=== PATIENT | male | born 1945 | race Caucasian/White ===

== ENCOUNTER 2025-01-07 10:30 | Outpatient (AMB) | payer OTHER, SELFPAY ==
--- NOTE | 2025-01-07 10:32 | MHC.OFFVIS ---
Vital Signs 01/07/25 10:34 Height 5 ft 7 in Weight 181 lb BMI 28.3 BP 126/70 Blood Pressure Location Rt brachial Position Sitting Pulse 71 Pulse Source Pulse Oximeter Pulse Oximetry (%) 97 Oxygen Delivery Method Room Air Intake Visit Reasons: ENP:Parkinson Disease Intake Note: [facility] Allergies No Known Allergies Allergy (Verified 01/07/25 10:35) Medication List - Last Reconciled 01/07/25 by Laurie Spivey MD aspirin 81 mg PO DAILY atorvastatin 80 mg PO DAILY carbidopa-levodopa 25-100 mg 2 tabs PO QID carvedilol 6.25 mg PO BID cholecalciferol (vitamin D3) 50 mcg PO DAILY lisinopril 40 mg PO DAILY primidone 25 mg (1/2 x 50 mg) PO BID HPI Comments Details: 79y/o Right handed male comes for further management of possible parkinsons and tremors. He was on [place] 1966 and exposed to Agent [place].He started noticing tremors in paul UE R>L- not sure if he was diagnosed with Parkinsons. The tremors are worse with action, he has difficulty writing , holding a cup of water is difficult. He has mild hypophonia. No drooling. He has trouble writing, trouble using utensils. He can dress and shower with no issues. 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 No falls recently. No hallucinations. He has some vivid dreams . No screaming yelling in sleep. He lives alone and is independent in all his ADLs. 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) History of total left knee replacement (TKR) H/O angioplasty Social History Alcohol intake: current Patient Tobacco Use Status: Former Tobacco user Years Smoked: quit 1966 Physical Exam Vital Signs: Last Vital Signs Pulse 71 01/07/25 10:34 BP 126/70 01/07/25 10:34 Pulse Ox 97 01/07/25 10:34 Oxygen Delivery Method Room Air 01/07/25 10:34 BMI result Body Mass Index 28.3 Const General: cooperative, healthy appearing and comfortable Nutritional Appearance: average body habitus Orientation/consciousness: patient oriented x3 Eyes Pupils: Equal, round and reactive pupils present Neuro Other: Head tremors Paul UE rest , postural and action tremors R>L Mild voice tremors, mild hypophonia Tone normal Mild decreased facial expression and blink FFM and Foot taps- decreased paul R>L Gait- stooped, slow General: patient oriented x3 Cranial nerves: Yes Equal, round and reactive pupils present, Yes Bilaterally intact EOM present, Yes Nystagmus not present, Yes Normal facial strength present, Yes Midline tongue present, Yes Symmetric palate elevation present, Yes Ability to bilaterally rotate head present and Yes Ability to bilaterally elevate shoulders present Cognition (Neuro): normal cognition Motor exam (neuro): 5/5 motor strength present throughout and Normal motor muscle tone present throughout Deep tendon reflexes (DTR's): Right triceps reflex intensity grade: 1+, Left triceps reflex intensity grade: 1+, Rt Biceps (C5, C6): 1+, Left biceps reflex intensity grade: 1+, Right brachioradialis reflex intensity grade: 1+, Left brachioradialis reflex intensity grade: 1+, Right patellar reflex intensity grade: 1+ and Left patellar reflex intensity grade: 1+ Coordination: [id number] test normal Assessment & Plan Assessment & Plan (1) Parkinson's disease without dyskinesia: Code(s): G20.A1 - Parkinson's disease without dyskinesia, without mention of fluctuations Category: Medical (2) Essential and other specified forms of tremor: Code(s): G25.0 - Essential tremor; G25.2 - Other specified forms of tremor Category: Medical Plan Continue sinemet 25/100 2 tabs qid I will trial him on primidone 50mg 1/2 tab bid for tremors. SIde effects discussed Medications: New primidone 25 mg (1/2 x 50 mg) PO BID 60 tabs 6RF Coding Level of Care Code New Pt Level 4 (13437) Complex EM visit Add On G2211 Diagnoses Parkinson's disease without dyskinesia G20.A1 Essential and other specified forms of tremor G25.0; G25.2
[2025-01-07 10:34] VITALS: BP 126/70; PULSE 71; O2SAT 97; BMI 28.3
--- OUTSIDE RECORDS SUMMARY | 2025-01-07 12:25 | XMS_ITS | Encounter Summary ---
Author Name [facility] [place] [facility] Address [address] [place] [id number] Care Team Providers Care Music Librarian Name Role Phone WISAM ALEXANDER Primary Care Provider Unavail able Insurance Providers: All historical and current Section Date Range: From patient's date of to the date document was created. This section includes the names of all active insurance providers for the patient. Insurance Provider Type of Coverage Plan Name Start of Policy Coverage End of Policy Coverage Group Number Member ID Insurance Provider's Telephone Number Policy Kelley's Name Patient's Relationship to Policy Kelley MEDICARE (WNR) MEDICARE (M) PART B Jul 22, 2012 PART B [id number] EDMUND AMARO PATIENT MEDICARE (WNR) MEDICARE (M) PART B Jul 22, 2012 PART B [id number] [phone] EDMUND AMARO PATIENT MEDICARE (WNR) MEDICARE (M) PART A Dec 21, 2011 PART A [id number] EDMUND AMARO PATIENT MEDICARE (WNR) MEDICARE (M) PART B Dec 21, 2011 PART B [id number] EDMUND AMARO PATIENT MEDICARE (WNR) MEDICARE (M) PART A Dec 21, 2011 PART A [id number] [phone] EDMUND AMARO PATIENT MEDICARE (WNR) MEDICARE (M) PART B Dec 21, 2011 PART B [id number] EDMUND AMARO PATIENT MEDICARE (WNR) MEDICARE (M) PART A Dec 21, 2011 PART A [id number] EDMUND AMARO PATIENT MEDICARE (WNR) MEDICARE (M) PART A Dec 21, 2011 PART A [id number] [phone] EDMUND AMAOR PATIENT Selected Encounter This section includes the information on record at [place] for the Encounter. Date/Time Encounter Type Encounter Description Reason Provider Source Apr 25, 2024 10:30 AM SELF CARE MNGMENT TRAINING PHYSICAL THERAPY ICD-10-CM M54.50 Low back pain, unspecified SEMAJ DANIELSON [facility] Encounter Template Text not used by [place] Assessments - Encounter Diagnoses This section includes the primary and secondary diagnoses documented for the Encounter. Date/Time Primary/Secondary Diagnosis Diagnosis Name Provider Source Apr 25, 2024 12:17 PM PRIMARY Low back pain, unspecified SEMAJ DANIELSON [facility] Plan of Treatment: Future Appointments (+ 6 months) and Future Tests (+/- 45 days) The Plan of Treatment section includes future care activities for the patient [facility] [place] [facility] This section includes future appointments and future orders which are active, pending or scheduled. Future Appointments This section includes appointments that were scheduled to occur 6 months from the date of the Encounter, up to a maximum of 20 appointments. The data comes from all [place] treatment facilities. Appointment Date/Time Appointment Type Appointme nt Facility Name May 05, 2024 09:30 [facility] Jun 02, 2024 11:30 AM [facility] Jun 18, 2024 11:00 AM AMBULATORY - MEDICINE [facility] Sep 24, 2024 10:00 AM [facility] Active, Pending, and Scheduled Orders This section includes a listing of several types of active, pending, and scheduled orders, including clinic medications orders, diagnostic test orders, procedure orders and consult orders; where the start date of the order is 45 days before the date of the Encounter or 45 days after the date of theEncounter. The data comes from all [place] treatment [facility]. Test Date/Time Test Type Test Details Facility Name Apr 22, 2024 11:06 AM Consult Order [facility]-NEUROLOGY Cons Pl Sql Developer[employer] Choice [facility] Social History: Smoking Status (Most current) and Tobacco Use (All prior to encounter date) This section includes the most current, and the historical, smoking and tobacco- related health factors from the [place] facility where the Encounter took place. Current Smoking Status This section includes the most current smoking, or tobacco-related health factor, from the [place] facility where the Encounter took place. Date/Time Current Smoking Status Comment Facil ity Aug 28, 2023 10:30 AM VA-TOBACCO FORMER USER [facility] Tobacco Use History This section includes a history of the smoking, or tobacco-related health factors, that were collected on or before the date of the Encounter. The data comes from the [place] facility where the Encounter took place. Date/Time Smoking Status/Tobacco Use Comment F acility Aug 28, 2023 10:30 AM VA-TOBACCO QUIT 15 YRS OR MORE [facility] Aug 10, 2022 10:00 AM VA-TOBACCO NEVER USED [facility] Mar 24, 2021 10:00 AM VA-TOBACCO FORMER USER [facility] Mar 24, 2021 10:00 AM VA-TOBACCO QUIT 15 YRS OR MORE [facility] Apr 28, 2019 01:25 PM VA-TOBACCO NEVER USED [facility] Feb 08, 2018 02:23 PM QUIT TOBACCO USE > 7 YEARS AGO [facility] February 19, 2017 10:09 AM QUIT TOBACCO USE > 7 YEARS AGO QUIT 40 YRS AGO [facility] March 16, 2016 09:54 AM QUIT TOBACCO USE > 7 YEARS AGO [facility] Sep 15, 2014 10:01 AM QUIT TOBACCO USE > 7 YEARS AGO [facility] Advance Directives: All historical and current Section Date Range: From patient's date of to the date document was created. This section includes ALL of a patient's completed or amended [place] Advance and Rescinded Directives. The entries below indicate that a directive exists for the patient, but an actual copy is not included with this document. The data comes from all [facility]. Date Advance Directives Provider Source Aug 10, 2022 ADVANCE DIRECTIVE ELVA JARAMILLO [facility] Encounter Notes: All associated encounter notes This section contains the clinical notes associated to the Encounter. Date/Time Encounter Note(s) Provider Source Apr 25, 2024 09:55 AM PHYSICAL THERAPY C ONSULT: LOCAL TITLE: PHYSICAL THERAPY CONSULT STANDARD TITLE: PHYSICAL THERAPY CONSULT DATE OF NOTE: APR 25, 2024@09:55 ENTRY DATE: APR 25, 2024@09:55:21 AUTHOR: SEMAJ DANIELSON EXP COSIGNER: URGENCY: STATUS: COMPLETED Initial Evaluation date: 04/25/24 Progress Note Date: 05/26/24 Treatment #: eval Treatment time: 45 Diagnosis: Low back pain, unspecified(ICD-10-CM M54.50) Provider: BRANDON YATES PT Treatment Precautions: Patient identified by full name and date of Vitals: HR:75 BP: 98/59 SUBJECTIVE: History of Current injury: Patient states they began to notice sciaica symptoms in the R hip about 1 month ago and notes the symptoms were mild to start, and then about 2 weeks ago the pain became severe. Notes they were having difficulty with prolonged standing, as well as completing computational chemist and yardwork. Notes the pain is primarily located on the R glute and will occasionally shoot all the way down the RLE into the calf. Has also noted some sporadic symptoms behind the L thigh as well. Patient notes the pain is worst on the morning noting difficulty standing up straight initially due to pain and then noting they are able to straigthen up more as the day goes on. Patient states alleviating factors include lidocaine patches and prolonged walking tend to alleviate their symptoms. Patient denies any major trauma or past surgical procedures the lower back or hips. Notes hx of bilateral knee replacements. Patient also notes a hx of a heart valve replacement TAVR- December 2023. Patient denies saddle paresthesia, denies recent unxplained changes to bowel/bladder function. scheduled to go on a cruise in 3 weeks Pain Current: 4/10 Pain Best: 0/10 Pain Worst: 10/10 Current exercise routine: gardening and yard work Work: retired Patient Goal: get back to 100% Number of days per week with pain: 04/27 SANE report Please rate your ability to use your injured area on a 0% to 100% scale, with 0% being unable to use the injured area and 100% being normal use of injured area in your daily activity: 25% OBJECTIVE: Red flags: Recent Trauma- Age (50+)+ Hx of Cancer+ Fever/chills/night sweats- Unexplained weight loss- Recent infection- Immunosuppression- Night pain- Saddle anesthesia- Bowel/bladder dysfunction- LE neurological deficit- Psychosocial flags: mental health dx- entrenched/unhelpful beliefs about pain- clinically relevant catastrophization- signs of kinesiophobia- Neuro: patellar and achilles relfexes normal 2+ - clonus ROM: Lumbar Flexion 50% limitation Lumbar Extension 75% limitation* Lumbar Left side bend 50% limitation* Lumbar Right side bend 50% limitation* Lumbar Left rotation 75% limitation* Lumbar Right rotation 75% limitation* Hip ROM: Hip flexion(120): L:110 R:110 Hip Abduction(40): L: R: Hip Internal rotation(30): L:25 R: 25 Hip external rotation(30): L:30 R:30 Hip Extension(20): L: R: Lumbar/Hip Special Tests: SLR- Sign of the Buttock- BING- Scour- FADDIR- ALESSANDRO RICARDO 90/90 HS LEG LENGTH SAVANNAH Strength: Hip flexion L: 02/23 R: 02/23 Knee extension: L: 02/23 R: 02/23 Knee flexion L: 02/23 R: 02/23 Ankle DF L: 02/23 R: 02/23 Ankle INV L: 02/23 R: 02/23 Ankle EV L: 02/23 R: 02/23 Hip ER L: R: Hip ABD L: R: Hip Extension L: R: Glute Max: L: R: Palpation: Joint Mobility: Directional Preference: Extension bias (-) Symptoms distal to the buttock Symptoms centralize with lumbar extension Symptoms peripheralize with lumbar flexion Flexion bias (+) Older age >50 years Imaging evidence of spinal stenosis Symptoms worsen with lumbar extension Lumbar Traction Test Cluster (identified positive variables) (-) Pain in the leg Signs of nerve root compression Peripheralization of symptoms with lumbar extension movements Positive Crossed SLR Lumbar Stenosis Test Cluster (+) Bilateral symptoms Leg pain>back pain Pain during walking/standing Pain relief upon sitting >48 years old Sacroiliac joint dysfunction Jabari Finger Test (-) (-) Trendelenburg (-) (-) INTERVENTIONS: Therapeutic Exercise: Mins: Manual therapy: Mins: Neuro re-ed: Mins: Other: Mins: Modalities: Mins: [] contraindication screen completed prior to modality [] skin intact pre/post modality Access Code: [email or web address] URL: [email or web address] Date: 04/25/2024 Prepared by: Semaj Dannen Exercises - Heat - 1-2 x daily - 7 x weekly - Hooklying Single Knee to Chest Stretch - 1 x daily - 7 x weekly - 3 sets - 30 hold - Seated Hamstring Stretch - 1 x daily - 7 x weekly - 2-3 sets - 30 hold - Seated Hip Abduction with Resistance - 1 x daily - 7 x weekly - 2-3 sets - 15-25 reps - Seated Hip Adduction Isometrics with Ball - 1 x daily - 7 x weekly - 2-3 sets - 10-20 reps - 5 hold Patient education: Mins: 15 Discussed potential etiology of symptoms with patient including potential structures involved and how this relates to exercises prescribed and POC discussing frequency and duration of services to be provided with patient verbalizing good understanding and agreement with POC. Provided detail regarding the anatomy of the spine and spinal mechanics using spine model as visual aid. Provided written HEP to patient with therex from today reviewing proper form sets reps and frequency and safety precautions with patient verbalizing and demonstrating good understanding in clinic. Provided verbal instruction for use of heating pad including parameters for use, safety precautions. Advised frequent walking in the home performing short walks every 1-2hrs. ASSESSMENT: Patient is a 78yo seen for physical therapy evaluation following referral for lower back pain. PMH significant for Hypertension, hypercholesterolemia, CAD, GERD, prostate cancer - s/p RxT (7-8yrs ago), vitamin D deficiency, parkinsonian tremor. Patient presents with primary complaint of R glute pain. Pain rated 0/10 at best, 4/10 at current, 10/10 on NPRS. Primary aggraqvating factors include prolonged standing, prolonged sitting. On physical assessment, patient primary symptoms reproduced with repeated lumbar extension and L/R side bending and rotation. Additional impairments that may contribute to condition include impaired lumbar ROM, impaired posterior chain flexibility, impaired abdominal and gluteal strength. Based on patient hx and findings of assessment, symptoms appear most consistent with R lateral foraminal stenosis vs piriformis strain. Patient reports these symptoms impact their ability to complete their normal daily tasks like prolonged standing, prolonged sitting. Patient requires skilled physical therapy services in order to address these impairments ad activity limitations and to achieve patient goal of get back to 100% . GOALS: in 4-6weeks, patient will demonstrate: consistent carryover of HEP 5/7 days per week with patient able to independently teach back 75% of exercises 2pt decrease in pain level at worst to improve patient ability to complete most symptomatic tasks 10% improvement on SANE score to improve patient ability to complete typical daily tasks decrease in total days with pain by 2 days to improve patient QOL 25% improvement in lumbar flexion ROM 25% improvement in lumbar extension ROM PLAN: Discussed POC with patient who verbalizes agreement with 1 additional follow up in 2 weeks. POC to focus on flexion based therex program to improve lumbar ROM, improve posterior chain flexibility, progressive abdominal and gluteal strenghtening, HEP teaching and progression, patient education [x]Low impact cardio: [x]Nustep []Recumbent bike []Recumbent elliptical []TM []Manual: []STM/DTM []METs/SCS []IASTM []Joint mobilizations [x]Therex: []Progressive UQ [x]Progressive Core [x]Progressive LQ []UQ flex [x] Lumbar flex [x]LQ flex []Foam rolling []Proprioception []Neuro Re-education: []Static []Dynamic []Dual-Task [x]Education: [x]Posture []Ergonomics [x]Bodymechanics [x]Self-care strategies []PNE []Modalities(PRN): []Heat/Ice []Estim/Tens []Mechanical traction []K-tape [] Biofreeze /es/ SEMAJ DANIELSON PT, DPT PHYSICAL THERAPIST Signed: 04/25/2024 12:17 SEMAJ DANIELSON [facility]
--- OUTSIDE RECORDS SUMMARY | 2025-01-07 12:25 | XMS_ITS | Encounter Summary ---
Author Name [facility] Organization [facility] Address [address] [place] [id number] Care Team Providers Care Employment Attorney Name Role Phone WISAM ALEXANDER Primary Care [...] PART B Jul 22, 2012 PART B [id number] [phone] EDMUND AMARO PATIENT MEDICARE (WNR) MEDICARE (M) PART B Jul 22, 2012 PART B [id number] EDMUND AMARO PATIENT MEDICARE (WNR) MEDICARE (M) PART A Dec 21, 2011 PART A [id number] [phone] EDMUND AMARO PATIENT MEDICARE (WNR) MEDICARE (M) PART B Dec 21, 2011 PART B [id number] EDMUND AMARO PATIENT MEDICARE (WNR) MEDICARE (M) PART A Dec 21, 2011 PART A [id number] [phone] EDMUND AMARO PATIENT MEDICARE (WNR) MEDICARE (M) PART B Dec 21, 2011 PART B [id number] [phone] EDMUND AMARO PATIENT MEDICARE (WNR) MEDICARE (M) PART A Dec 21, 2011 PART A [id number] EDMUND AMARO PATIENT MEDICARE (WNR) MEDICARE (M) PART A Dec 21, 2011 PART A [id number] EDMUND AMARO PATIENT Selected Encounter This section includes the information on record at [place] for the Encounter. Date/Time Encounter Type Encounter Description Reason Pro vider Source Feb 13, 2024 11:00 AM Outpatient Encounter CARDIOLOGY [facility] Encounter Template Text not used by [place] Plan of Treatment: Future Appointments (+ 6 months) and Future Tests (+/- 45 days) The Plan of Treatment section includes future care activities for the patient from all [place] treatmentfacilities. This section includes future appointments and future orders which are active, pending or scheduled. Future Appointments This section includes appointments that were scheduled to occur 6 months from the date of the Encounter, up to a maximum of 20 appointments. The data comes from all [place] treatment facilities. Appointment Date/Time Appointment Type Appointme nt Facility Name Apr 22, 2024 10:30 AM AMBULATORY - MED[facility]INE [facility] Apr 25, 2024 10:30 AM [facility]ATORY - [facility] May 05, 2024 09:30 AM [facility]ORY - [facility] Jun 02, 2024 11:30 [facility] Jun 18, 2024 11:00 AM AM[facility]ULATORY - MEDICINE [facility] Lab Results: +/- 30 days of the encounter This section includes the Chemistry and Hematology Lab Results on record with [place] for the patient. Radiology Reports and Pathology Reports are provided separately, in subsequent sections. Lab Results This section contains the Chemistry/Hematology Results that were resulted 30 days before or 30 daysafter the date of the Encounter. Date/Time Source Result Type Result - Unit Interpretation Reference Range Comment February 21, 2024 10:03 AM [facility] LIPID PANEL FASTING Specimen Type: SERUM No comment entered. Ordering Provider: BRANDON YATES Report Released Date/Time: Feb 14, 2024 08:12 AM Reporting Lab: [address] [address] Performing Lab: [address] [address] CHOLESTEROL 123 mg/dL TRIGLYCERIDE 75 mg/dL 0-150 LDL calculated 51 mg/dL 0-129 CHOL/HDL 2.2 HDL CHOLESTEROL 57 mg/dL 40-60 February 21, 2024 10:03 AM [facility] BASIC METABOLIC PANEL (fasting) Specime n Type: SERUM No comment entered. Ordering Provider: BRANDON YATES Report Released Date/Time: Feb 14, 2024 08:12 AM Reporting Lab: [address] [address] Performing Lab: [address] [address] UREA NITROGEN 17 mg/dL 7-25 GLUCOSE 89 mg/dL 65-100 SODIUM 137 mmol/L 135-145 POTASSIUM 4.8 mmol/L 3.5-5.0 CHLORIDE 107 mmol/L 100-110 CO2 23 meq/L 20-30 CREATININE, Serum 1.02 mg/dL 0.50-1.40 eGFR(CKD-EPI 2020) 75 mL/min >60 February 21, 2024 10:03 AM [facility] LIVER FUNCTION Specimen Type: SERUM No comment entered. Ordering Provider: BRANDON YATES Report Released Date/Time: Feb 14, 2024 08:12 AM Reporting Lab: [address] [address] Performing Lab: [address] [address] PROTEIN,TOTAL 7.0 g/dL 6.0-8.3 ALBUMIN 3.9 g/dL 3.5-5.0 ALKALINE PHOSPHATASE 88 U/L 40-150 AST 13 U/L 5-34 ALT <6 U/L BILIRUBIN, TOTAL 0.9 mg/dL 0.2-1.2 February 21, 2024 10:03 AM [facility] HEMOGLOBIN A1C PANEL Specimen Type: BLOOD Comment: Values obtained from A1C measurements can vary. For atypical A1C assays, a reported value of 7.0 could actually be between 6.72 and 7.28 if measured by a reference method. A reported value of 9.0 could actually be between 8.73 and 9.27. Ref: http://www.ngs p.org/CAPdata. asp Ordering Provider: BRANDON YATES Report Released Date/Time: Feb 14, 2024 08:12 AM Reporting [facility] [address] [address] Performing Lab: [facility] [address] [address] HEMOGLOBIN A1C 5.2 4.0-5.6 February 21, 2024 10:03 AM [facility] TSH Specimen Type: SERUM No comment entered. Ordering Provider: BRANDON YATES Report Released Date/Time: Feb 14, 2024 08:12 AM Reporting Lab: [facility] [address] [address] Performing Lab: [facility] [address] [address] TSH 1.25 u[IU]/mL 0.35-5.00 February 21, 2024 10:03 AM [facility] CBC AND DIFF (AUTO) Specimen Type: BLOOD No comment entered. Ordering Provider: BRANDON YATES Report Released Date/Time: Feb 14, 2024 08:12 AM Reporting Lab: [facility] [address] [address] Performing Lab: [facility] [address] [address] WBC 6.55 10*3/uL 4.50-11.00 RBC 3.97 10*6/uL L 4.23-5.66 HGB 12.3 g/dL L 12.8-17 HCT 36.5 L 39.2-50.4 MCV 91.9 fL 82-99 MCHC 33.7 g/dL 30.8-35.1 PLT 249 10*3/uL 140-360 RDW-CV 12.8 12.0-16.0 Childress, Abs 0.67 10*3/uL 0.30-1.10 MCH 31.0 pg 26.2-32.6 Neut % 63.7 43.7-75.8 Lymph % 21.4 14.0-42.3 Childress % 10.2 5.1-13.7 Eos % 3.7 0.4-6.8 Baso % 0.8 0.1-2.0 Neut, Abs 4.18 10*3/uL 2.20-7.60 Lymph, Abs 1.40 10*3/uL 1.00-3.20 Eos, Abs 0.24 10*3/uL 0.03-0.44 Baso, Abs 0.05 10*3/uL 0.01-0.13 Immature Gran % 0.2 0.0-0.7 Immature Gran, Abs 0.01 10*3/uL 0.00-0.06 Advance Directives: All historical and current Section Date Range: From patient's date of to the date document was created. This section includes ALL of a patient's completed or amended [place] Advance and Rescinded Directives. The entries below indicate that a directive exists for the patient, but an actual copy is not included with this document. The data comes from all [place] facilities. Date Advance Directives Provider Source Aug 10, 2022 ADVANCE DIRECTIVE ELVA JARAMILLO [facility] Encounter Notes: All associated encounter notes This section contains the clinical notes associated to the Encounter. Date/Time Encounter Note(s) Provider Source Feb 13, 2024 11:14 AM NO SHOW NOTE: LOCAL TITLE: NO SHOW PROGRESS NOTE STANDARD TITLE: NO SHOW NOTE DATE OF NOTE: FEB 13, 2024@11:14 ENTRY DATE: FEB 13, 2024@11:14:57 AUTHOR: SAMUEL ENRIQUE EXP COSIGNER: URGENCY: STATUS: COMPLETED pt now show for [facility] 02/13/24 at 11am /ruchi/ SAMUEL ENRIQUE RN BSN REGISTERED NURSE Signed: 02/13/2024 11:15 [facility]
--- OUTSIDE RECORDS SUMMARY | 2025-01-07 12:25 | XMS_ITS | Encounter Summary ---
Author Name [facility] [place] Organization [facility] Address [address] [place] [id number] Care Team Providers Care Top Tile Decorator Name Role Phone WISAM ALEXANDER Primary Care [...] PART B Jul 22, 2012 PART B [id number] [phone] EDMUND AMARO PATIENT MEDICARE (WNR) MEDICARE (M) PART B Jul 22, 2012 PART B [id number] EDMUND AMARO PATIENT MEDICARE (WNR) MEDICARE (M) PART A Dec 21, 2011 PART A [id number] EDMUND AMARO PATIENT MEDICARE (WNR) MEDICARE (M) PART B Dec 21, 2011 PART B [id number] EDMUND AMARO PATIENT MEDICARE (WNR) MEDICARE (M) PART A Dec 21, 2011 PART A [id number] EDMUND AMARO PATIENT MEDICARE (WNR) MEDICARE (M) PART B Dec 21, 2011 PART B [id number] EDMUND AMARO PATIENT MEDICARE (WNR) MEDICARE (M) PART A Dec 21, 2011 PART A [id number] EDMUND AMARO PATIENT MEDICARE (WNR) MEDICARE (M) PART A Dec 21, 2011 PART A [id number] EDMUND AMARO PATIENT Selected Encounter This section includes the information on [place] at [place] for the [place]. Date/Time Encounter Type Encounter Description Reason Provider Source May 05, 2024 09:30 AM SELF CARE MNGMENT TRAINING PHYSICAL THERAPY ICD-10-CM M54.50 Low back pain, unspecified SHERMAN CHRISTIE [place] [facility] Encounter Template Text not used by [place] Assessments - Encounter Diagnoses This section includes the primary and secondary diagnoses documented for the Encounter. Date/Time Primary/Secondary Diagnosis Diagnosis Name Provider Source May 05, 2024 09:47 AM PRIMARY Low back pain, unspecified SHERMAN CHRISTIE Plan of Treatment: Future Appointments (+ 6 months) and Future Tests (+/- 45 days) The Plan of Treatment section includes future care activities for the patient from all [place] treatmentfacilities. This section includes future appointments and future orders which are active, pending or scheduled. Future Appointments This section includes appointments that were scheduled to occur 6 months from the date of the Encounter, up to a maximum of 20 appointments. The data comes from all [place] treatment facilities. Appointment Date/Time Appointment Type Appointme nt Facility Name Jun 02, 2024 11:30 AM AMBULATORY - REHAB TRUPTI Joyce [facility] Jun 18, 2024 11:00 AM AMBULATORY - MEDICINE REGLA ROSAS Sep 24, 2024 10:00 AM AMBULATORY - MEDICINE CIRO CHAVIRA Active, Pending, and Scheduled Orders This section includes a listing of several types of active, pending, and scheduled orders, including clinic medications orders, diagnostic test orders, procedure orders and consult orders; where the start date of the order is 45 days before the date of the Encounter or 45 days after the date of theEncounter. The data comes from all [place] treatment facilities. Test Date/Time Test Type Test Details Facility Name Apr 22, 2024 11:06 AM Consult Order [facility]ITY [facility]-NEUROLOGY Cons Title Clerk's Alex [facility] Social History: Smoking Status (Most current) and Tobacco Use (All prior to encounter date) This section includes the most current, and the historical, smoking and tobacco- related health factors from the [place] facility where the Encounter took place. Current Smoking Status This section includes the most current smoking, or tobacco-related health factor, from the [place] facility where the Encounter took place. Date/Time Current Smoking Status Comment Audie ity Aug 28, 2023 10:30 AM VA-TOBACCO FORMER USER [facility] Tobacco Use History This section includes a history of the smoking, or tobacco-related health factors, that were collected on or before the date of the Encounter. The data comes from the [place] facility where the Encounter took place. Date/Time Smoking Status/Tobacco Use Comment F acility Aug 28, 2023 10:30 AM VA-TOBACCO QUIT 15 YRS OR MORE [facility] Aug 10, 2022 10:00 AM VA-TOBACCO NEVER USED [facility] Mar 24, 2021 10:00 AM VA-TOBACCO FORMER USER [facility] Mar 24, 2021 10:00 AM VA-TOBACCO QUIT 15 YRS OR MORE [facility] Apr 28, 2019 01:25 PM VA-TOBACCO NEVER USED [facility] Feb 08, 2018 02:23 PM QUIT TOBACCO USE > 7 YEARS AGO [facility] February 19, 2017 10:09 AM QUIT TOBACCO USE > 7 YEARS AGO QUIT 40 YRS AGO [facility] March 16, 2016 09:54 AM QUIT TOBACCO USE > 7 YEARS AGO [facility] Sep 15, 2014 10:01 AM QUIT TOBACCO USE > 7 YEARS AGO [facility] Advance Directives: All historical and current Section Date Range: From patient's date of to the date document was created. This section includes ALL of a patient's completed or amended [place] Advance and Rescinded Directives. The entries below indicate that a directive exists for the patient, but an actual copy is not included with this document. The data comes from all [facility]. Date Advance Directives Provider Source Aug 10, 2022 ADVANCE DIRECTIVE ELVA JARAMILLO [facility] Radiology Reports: +/- 30 days of the encounter Radiology Reports For cases when an order for radiology services may have been completed prior to the date of the Encounter, the report list includes the Radiology Reports that were completed up to 30 days before dateof the Encounter. For cases when an order for radiology services may have been completed after the date of the Encounter, the report list also includes the Radiology Reports that were completed up to30 days after date of the Encounter. The data comes from all [place] treatment facilities. Date/Time Radiology Report Provider Source Jun 03, 2024 11:55 AM KNEE 3 VIEWS (RIGH T): CHUY AMARO [id number] -[id number] M Exm Date: JUN 03, 2024@11:55 Req Phys: BRANDON YATES Pat Loc: [facility]/SO/PACT EIGHT WH (Req'g Lo Img Loc: [facility] 1 Service: [place] [address] (Case [id number] COMPLETE) KNEE 3 VIEWS (RIGHT) (RAD Detailed) CPT:37236 Reason for Study: s/p fall 2 weeks ago Clinical History: Report Status: Verified Date Reported: JUN 03, 2024 Date Verified: JUN 03, 2024 Bird Sitter E-Sig:/RUCHI/ROSELINE RM JR Report: Study: AP and crosstable lateral views of the right knee. Comparison: Right knee radiographs from March 20, 2017. 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 Significant vascular calcifications are present. The bony mineralization appears normal. No bony fracture, dislocation or subluxation is identified. The visualized joint spaces are intact. Impression: No acute bony abnormality identified, as described above. Primary Diagnostic Code: No immediate attention required Primary Interpreting Staff: ROSELINE RM JR, Radiologist (Bird Sitter) /ROSELINE MANLEY JR [facility] Encounter Notes: All associated encounter notes This section contains the clinical notes associated to the Encounter. Date/Time Encounter Note(s) Provider Source May 07, 2024 09:08 AM ADDENDUM: LOCAL TITLE: Addendum STANDARD TITLE: ADDENDUM DATE OF NOTE: MAY 07, 2024@09:08:12 ENTRY DATE: MAY 07, 2024@09:08:13 AUTHOR: BRANDON YATES EXP COSIGNER: URGENCY: STATUS: COMPLETED Laura please hold a new appointment for now. If the pain is controlled with Tylenol ibuprofen and lidocaine patches he does not need reevaluation. Thank you /blaine YATES MD PRIMARY CARE PHYSICIAN Signed: 05/07/2024 09:08 Receipt Acknowledged By: 05/09/2024 14:43 /ruchi/ FELICIA CASTRO ADVANCED BLAST FURNACE KEEPER HELPER ======== --- Original Document --- 05/05/24 PHYSICAL THERAPY: Initial Evaluation date: 04/25/24 Progress Note Date: 05/26/24 Treatment #: 1 Treatment time: 30 Diagnosis: Low back pain, unspecified(ICD-10-CM M54.50) Provider: BRANDON YATES PT Treatment Precautions: Patient identified by full name and date of SUBJECTIVE: Patient notes their symptoms are still highly variable. notes some mornings they have significant in either the R or L hip. Some days both sides like this morning. OBJECTIVE: Therapeutic Exercise: Mins: 20 Nustep 8mins SKTC 2x30s abdominal press into ball 10x10s lower trunk rotation ball between knees 1min supine hamstring stretch with strap 2x30s Manual therapy: Mins: Neuro re-ed: Mins: Other: Mins: Modalities: Mins: [] contraindication screen completed prior to modality [] skin intact pre/post modality Access Code: [email or web address] URL: [email or web address] Date: 05/05/2024 Prepared by: Sherman Christie Exercises - Heat - 1-2 x daily - 7 x weekly - Hooklying Single Knee to Chest Stretch - 1 x daily - 7 x weekly - 3 sets - 30 hold - Seated Hip Abduction with Resistance - 1 x daily - 7 x weekly - 2-3 sets - 15-25 reps - Supine Lower Trunk Rotation - 1 x daily - 7 x weekly - 2-3 sets - 10-20 reps - Abdominal Press into Ball - 1 x daily - 7 x weekly - 2 sets - 10 reps - 10 hold - Seated Hamstring Stretch - 1 x daily - 7 x weekly - 3 sets - 30 hold PATIENT EDUCATION: Mins:10 Patient education was provided for all aspects of care during this clinical encounter. Provided updated written HEP to patient reviewing proper form sets reps and frequency and safety precautions with patient verbalizing and demonstrating good understanding during visit. Prvided patient with lumbar LSO providing verbal instruction and demonstration for donning and doffing of this device, how to wash and remove metal supports. Ensured proper fit of device and patient able to independently don/doff. ASSESSMENT: Patient seen for routine follow up. No significant change in their symptoms compared to eval. Provided instruction through progressions in lumbar ROm and stabilization exercises with good toelrance from patient. Patient appears to experience their pain when trying to lift or move their extremities which could indicate impaired lumbopelvic stability. provided lumbar LSO providing education for this device as described above. Patient verbalizes good understanding. PLAN: Progress as tolerated focus on flexion based therex program to [...] []Heat/Ice []Estim/Tens []Mechanical traction []K-tape [] Biofreeze /blaine CHRISTIE PT, DPT PHYSICAL THERAPIST Signed: 05/05/2024 10:33 05/05/2024 ADDENDUM STATUS: COMPLETED Patient inquires what additional medications they can take to help with their pain. Advised patient that this would be best discussed with their primary care team. Please reach out to patient to discuss further. /blaine CHRISTIE PT, DPT PHYSICAL THERAPIST Signed: 05/05/2024 10:34 Receipt Acknowledged By: 05/05/2024 16:09 /ruchi/ KIKE HUTCHINSONN RN-BC REGISTERED NURSE 05/07/2024 09:03 /ruchi/ BRANDON YATES MD PRIMARY CARE PHYSICIAN 05/07/2024 ADDENDUM STATUS: COMPLETED Please assist the to schedule an appointment with [facility]- [facility] or [facility] when available. Thank you /blaine YATES MD PRIMARY CARE PHYSICIAN Signed: 05/07/2024 09:04 Receipt Acknowledged By: * AWAITING SIGNATURE * FELICIA CASTRO 05/07/2024 ADDENDUM STATUS: COMPLETED I order Tylenol and he is already on ibuprofen and lidocaine patches. If the pain is not controlled he may need to be reevaluated. Please inform the Thank you. /blaine YATES MD PRIMARY CARE PHYSICIAN Signed: 05/07/2024 09:05 Receipt Acknowledged By: 05/07/2024 09:29 /blaine CHRISTIE PT, DPT PHYSICAL THERAPIST 05/07/2024 ADDENDUM STATUS: COMPLETED Called and left voicemail requesting call back to PACT at [phone] /ruchi/ CHERIE HUTCHINSON RN-BC REGISTERED NURSE Signed: 05/07/2024 09:44 05/07/2024 ADDENDUM STATUS: COMPLETED Received call back from and reviewed above message from PCP. [place] verbalized understanding of information provided and will follow up with PACT if pain management plan is not sufficient. /CHERIE Conklin RN-BC REGISTERED NURSE Signed: 05/07/2024 11:29 BRANDON YATES [facility] May 07, 2024 09:05 AM ADDENDUM: LOCAL TITLE: Addendum STANDARD TITLE: ADDENDUM DATE OF NOTE: MAY 07, 2024@09:05:19 ENTRY DATE: MAY 07, 2024@09:05:20 AUTHOR: BRANDON YATES EXP COSIGNER: URGENCY: STATUS: COMPLETED I order Tylenol and he is already on ibuprofen and lidocaine patches. If the pain is not controlled he may need to be reevaluated. Please inform the Thank you. /blaine YATES MD PRIMARY CARE PHYSICIAN Signed: 05/07/2024 09:05 Receipt Acknowledged By: 05/07/2024 09:29 /blaine CHRISTIE PT, DPT PHYSICAL THERAPIST ======== --- Original Document --- 05/05/24 PHYSICAL THERAPY: Initial Evaluation date: 04/25/24 Progress Note Date: 05/26/24 Treatment #: 1 Treatment time: 30 Diagnosis: Low back pain, unspecified(ICD-10-CM M54.50) Provider: BRANDON YATES PT Treatment Precautions: Patient identified by full name and date of SUBJECTIVE: Patient notes their symptoms are still highly variable. notes some mornings they have significant in either the R or L hip. Some days both sides like this morning. OBJECTIVE: Therapeutic Exercise: Mins: 20 Nustep 8mins SKTC 2x30s abdominal press into ball 10x10s lower trunk rotation ball between knees 1min supine hamstring stretch with strap 2x30s Manual therapy: Mins: Neuro re-ed: Mins: Other: Mins: Modalities: Mins: [] contraindication screen completed prior to modality [] skin intact pre/post modality Access Code: [email or web address] URL: [email or web address] Date: 05/05/2024 Prepared by: Sherman Christie Exercises - Heat - 1-2 x daily - 7 x weekly - Hooklying Single Knee to Chest Stretch - 1 x daily - 7 x weekly - 3 sets - 30 hold - Seated Hip Abduction with Resistance - 1 x daily - 7 x weekly - 2-3 sets - 15-25 reps - Supine Lower Trunk Rotation - 1 x daily - 7 x weekly - 2-3 sets - 10-20 reps - Abdominal Press into Ball - 1 x daily - 7 x weekly - 2 sets - 10 reps - 10 hold - Seated Hamstring Stretch - 1 x daily - 7 x weekly - 3 sets - 30 hold PATIENT EDUCATION: Mins:10 Patient education was provided for all aspects of care during this clinical encounter. Provided updated written HEP to patient reviewing proper form sets reps and frequency and safety precautions with patient verbalizing and demonstrating good understanding during visit. Prvided patient with lumbar LSO providing verbal instruction and demonstration for donning and doffing of this device, how to wash and remove metal supports. Ensured proper fit of device and patient able to independently don/doff. ASSESSMENT: Patient seen for routine follow up. No significant change in their symptoms compared to eval. Provided instruction through progressions in lumbar ROm and stabilization exercises with good toelrance from patient. Patient appears to experience their pain when trying to lift or move their extremities which could indicate impaired lumbopelvic stability. provided lumbar LSO providing education for this device as described above. Patient verbalizes good understanding. PLAN: Progress as tolerated focus on flexion based therex program to [...] []Heat/Ice []Estim/Tens []Mechanical traction []K-tape [] Biofreeze /blaine CHRISTIE PT, DPT PHYSICAL THERAPIST Signed: 05/05/2024 10:33 05/05/2024 ADDENDUM STATUS: COMPLETED Patient inquires what additional medications they can take to help with their pain. Advised patient that this would be best discussed with their primary care team. Please reach out to patient to discuss further. /blaine CHRISTIE PT, DPT PHYSICAL THERAPIST Signed: 05/05/2024 10:34 Receipt Acknowledged By: 05/05/2024 16:09 /ruchi/ KIKE HUTCHINSONN RN-BC REGISTERED NURSE 05/07/2024 09:03 /ruchi/ BRANDON YATES MD PRIMARY CARE PHYSICIAN 05/07/2024 ADDENDUM STATUS: COMPLETED Please assist the to schedule an appointment with [facility]- [facility] or [facility] when available. Thank you /ruchi/ BRANDON YATES MD PRIMARY CARE PHYSICIAN Signed: 05/07/2024 09:04 Receipt Acknowledged By: * AWAITING SIGNATURE * FELICIA CASTRO 05/07/2024 ADDENDUM STATUS: COMPLETED Laura please hold a new appointment for now. If the pain is controlled with Tylenol ibuprofen and lidocaine patches he does not need reevaluation. Thank you /blaine YATES MD PRIMARY CARE PHYSICIAN Signed: 05/07/2024 09:08 Receipt Acknowledged By: * AWAITING SIGNATURE * FELICIA CASTRO CARMEN F [facility] May 07, 2024 09:04 AM ADDENDUM: LOCAL TITLE: Addendum STANDARD TITLE: ADDENDUM DATE OF NOTE: MAY 07, 2024@09:04:04 ENTRY DATE: MAY 07, 2024@09:04:05 AUTHOR: BRANDON YATES EXP COSIGNER: URGENCY: STATUS: COMPLETED Please assist the to schedule an appointment with [facility]- [facility] or [facility] when available. Thank you /blaine YATES MD PRIMARY CARE PHYSICIAN Signed: 05/07/2024 09:04 Receipt Acknowledged By: 05/13/2024 10:53 /ruchi/ FELICIA CASTRO ADVANCED BLAST FURNACE KEEPER HELPER ======== --- Original Document --- 05/05/24 PHYSICAL THERAPY: Initial Evaluation date: 04/25/24 Progress Note Date: 05/26/24 Treatment #: 1 Treatment time: 30 Diagnosis: Low back pain, unspecified(ICD-10-CM M54.50) Provider: BRANDON YATES PT Treatment Precautions: Patient identified by full name and date of SUBJECTIVE: Patient notes their symptoms are still highly variable. notes some mornings they have significant in either the R or L hip. Some days both sides like this morning. OBJECTIVE: Therapeutic Exercise: Mins: 20 Nustep 8mins SKTC 2x30s abdominal press into ball 10x10s lower trunk rotation ball between knees 1min supine hamstring stretch with strap 2x30s Manual therapy: Mins: Neuro re-ed: Mins: Other: Mins: Modalities: Mins: [] contraindication screen completed prior to modality [] skin intact pre/post modality Access Code: [email or web address] URL: [email or web address] Date: 05/05/2024 Prepared by: Sherman Christie Exercises - Heat - 1-2 x daily - 7 x weekly - Hooklying Single Knee to Chest Stretch - 1 x daily - 7 x weekly - 3 sets - 30 hold - Seated Hip Abduction with Resistance - 1 x daily - 7 x weekly - 2-3 sets - 15-25 reps - Supine Lower Trunk Rotation - 1 x daily - 7 x weekly - 2-3 sets - 10-20 reps - Abdominal Press into Ball - 1 x daily - 7 x weekly - 2 sets - 10 reps - 10 hold - Seated Hamstring Stretch - 1 x daily - 7 x weekly - 3 sets - 30 hold PATIENT EDUCATION: Mins:10 Patient education was provided for all aspects of care during this clinical encounter. Provided updated written HEP to patient reviewing proper form sets reps and frequency and safety precautions with patient verbalizing and demonstrating good understanding during visit. Prvided patient with lumbar LSO providing verbal instruction and demonstration for donning and doffing of this device, how to wash and remove metal supports. Ensured proper fit of device and patient able to independently don/doff. ASSESSMENT: Patient seen for routine follow up. No significant change in their symptoms compared to eval. Provided instruction through progressions in lumbar ROm and stabilization exercises with good toelrance from patient. Patient appears to experience their pain when trying to lift or move their extremities which could indicate impaired lumbopelvic stability. provided lumbar LSO providing education for this device as described above. Patient verbalizes good understanding. PLAN: Progress as tolerated focus on flexion based therex program to [...] []Heat/Ice []Estim/Tens []Mechanical traction []K-tape [] Biofreeze /ruchi/ SHERMAN CHRISTIE PT, DPT PHYSICAL THERAPIST Signed: 05/05/2024 10:33 05/05/2024 ADDENDUM STATUS: COMPLETED Patient inquires what additional medications they can take to help with their pain. Advised patient that this would be best discussed with their primary care team. Please reach out to patient to discuss further. /blaine CHRISTIE PT, DPT PHYSICAL THERAPIST Signed: 05/05/2024 10:34 Receipt Acknowledged By: 05/05/2024 16:09 /ruchi/ CHERIE HUTCHINSON RN-BC REGISTERED NURSE 05/07/2024 09:03 /ruchi/ BRANDON YATES MD PRIMARY CARE PHYSICIAN 05/07/2024 ADDENDUM STATUS: COMPLETED I order Tylenol and he is already on ibuprofen and lidocaine patches. If the pain is not controlled he may need to be reevaluated. Please inform the [place] Thank you. /blaine YATES MD PRIMARY CARE PHYSICIAN Signed: 05/07/2024 09:05 Receipt Acknowledged By: 05/07/2024 09:29 /blaine CHRISTIE PT DPSam PHYSICAL THERAPIST 05/07/2024 ADDENDUM STATUS: COMPLETED Laura please hold a new appointment for now. If the pain is controlled with Tylenol ibuprofen and lidocaine patches he does not need reevaluation. Thank you /blaine YATES MD PRIMARY CARE PHYSICIAN Signed: 05/07/2024 09:08 Receipt Acknowledged By: 05/09/2024 14:43 /ruchi/ FELICIA CASTRO ADVANCED BLAST FURNACE KEEPER HELPER 05/07/2024 ADDENDUM STATUS: COMPLETED Called [place] and left voicemail requesting call back to PACT at [phone] /ruchi/ CHERIE HUTCHINSON RN-BC REGISTERED NURSE Signed: 05/07/2024 09:44 05/07/2024 ADDENDUM STATUS: COMPLETED Received call back from [place] and reviewed above message from PCP. [place] verbalized understanding of information provided and will follow up with PACT if pain management plan is not sufficient. /ruchi/ CHERIE HUTCHINSON RN-CHERRIE REGISTERED NURSE Signed: 05/07/2024 11:29 05/13/2024 ADDENDUM STATUS: UNSIGNED You may not VIEW this UNSIGNED Addendum. BRANDON YATES May 05, 2024 10:33 AM ADDENDUM: LOCAL TITLE: Addendum STANDARD TITLE: ADDENDUM DATE OF NOTE: MAY 05, 2024@10:33:25 ENTRY DATE: MAY 05, 2024@10:33:25 AUTHOR: SHERMAN CHRISTIE COSIGNER: URGENCY: STATUS: COMPLETED Patient inquires what additional medications they can take to help with their pain. Advised patient that this would be best discussed with their primary care team. Please reach out to patient to discuss further. /ruchi/ SHERMAN CHRISTIE PT, DPT PHYSICAL THERAPIST Signed: 05/05/2024 10:34 Receipt Acknowledged By: 05/05/2024 16:09 /ruchi/ CHERIE HUTCHINSON RN-CHERRIE REGISTERED NURSE 05/07/2024 09:03 /ruchi/ BRANDON YATES MD PRIMARY CARE PHYSICIAN ======== --- Original Document --- 05/05/24 PHYSICAL THERAPY: Initial Evaluation date: 04/25/24 Progress Note Date: 05/26/24 Treatment #: 1 Treatment time: 30 Diagnosis: Low back pain, unspecified(ICD-10-CM M54.50) Provider: BRANDON YATES PT Treatment Precautions: Patient identified by full name and date of SUBJECTIVE: Patient notes their symptoms are still highly variable. notes some mornings they have significant in either the R or L hip. Some days both sides like this morning. OBJECTIVE: Therapeutic Exercise: Mins: 20 Nustep 8mins SKTC 2x30s abdominal press into ball 10x10s lower trunk rotation ball between knees 1min supine hamstring stretch with strap 2x30s Manual therapy: Mins: Neuro re-ed: Mins: Other: Mins: Modalities: Mins: [] contraindication screen completed prior to modality [] skin intact pre/post modality Access Code: [email or web address] URL: [email or web address] Date: 05/05/2024 Prepared by: Sherman Christie Exercises - Heat - 1-2 x daily - 7 x weekly - Hooklying Single Knee to Chest Stretch - 1 x daily - 7 x weekly - 3 sets - 30 hold - Seated Hip Abduction with Resistance - 1 x daily - 7 x weekly - 2-3 sets - 15-25 reps - Supine Lower Trunk Rotation - 1 x daily - 7 x weekly - 2-3 sets - 10-20 reps - Abdominal Press into Ball - 1 x daily - 7 x weekly - 2 sets - 10 reps - 10 hold - Seated Hamstring Stretch - 1 x daily - 7 x weekly - 3 sets - 30 hold PATIENT EDUCATION: Mins:10 Patient education was provided for all aspects of care during this clinical encounter. Provided updated written HEP to patient reviewing proper form sets reps and frequency and safety precautions with patient verbalizing and demonstrating good understanding during visit. Prvided patient with lumbar LSO providing verbal instruction and demonstration for donning and doffing of this device, how to wash and remove metal supports. Ensured proper fit of device and patient able to independently don/doff. ASSESSMENT: Patient seen for routine follow up. No significant change in their symptoms compared to eval. Provided instruction through progressions in lumbar ROm and stabilization exercises with good toelrance from patient. Patient appears to experience their pain when trying to lift or move their extremities which could indicate impaired lumbopelvic stability. provided lumbar LSO providing education for this device as described above. Patient verbalizes good understanding. PLAN: Progress as tolerated focus on flexion based therex program to [...] []Estim/Tens []Mechanical traction []K-tape [] Biofreeze /es/ SHERMAN CHRISTIE PT, DPT PHYSICAL THERAPIST Signed: 05/05/2024 10:33 SHERMAN CHRISTIE [facility] May 05, 2024 08:57 AM PHYSICAL THERAPY N OTE: LOCAL TITLE: PHYSICAL THERAPY STANDARD TITLE: PHYSICAL THERAPY NOTE DATE OF NOTE: MAY 05, 2024@08:57 ENTRY DATE: MAY 05, 2024@08:57:45 AUTHOR: SHERMAN CHRISTIE EXP COSIGNER: URGENCY: STATUS: COMPLETED PHYSICAL THERAPY Has ADDENDA Initial Evaluation date: 04/25/24 Progress Note Date: 05/26/24 Treatment #: 1 Treatment time: 30 Diagnosis: Low back pain, unspecified(ICD-10-CM M54.50) Provider: BRANDON YATES PT Treatment Precautions: Patient identified by full name and date of SUBJECTIVE: Patient notes their symptoms are still highly variable. notes some mornings they have significant in either the R or L hip. Some days both sides like this morning. OBJECTIVE: Therapeutic Exercise: Mins: 20 Nustep 8mins SKTC 2x30s abdominal press into ball 10x10s lower trunk rotation ball between knees 1min supine hamstring stretch with strap 2x30s Manual therapy: Mins: Neuro re-ed: Mins: Other: Mins: Modalities: Mins: [] contraindication screen completed prior to modality [] skin intact pre/post modality Access Code: [email or web address] URL: [email or web address] Date: 05/05/2024 Prepared by: Sherman Christie Exercises - Heat - 1-2 x daily - 7 x weekly - Hooklying Single Knee to Chest Stretch - 1 x daily - 7 x weekly - 3 sets - 30 hold - Seated Hip Abduction with Resistance - 1 x daily - 7 x weekly - 2-3 sets - 15-25 reps - Supine Lower Trunk Rotation - 1 x daily - 7 x weekly - 2-3 sets - 10-20 reps - Abdominal Press into Ball - 1 x daily - 7 x weekly - 2 sets - 10 reps - 10 hold - Seated Hamstring Stretch - 1 x daily - 7 x weekly - 3 sets - 30 hold PATIENT EDUCATION: Mins:10 Patient education was provided for all aspects of care during this clinical encounter. Provided updated written HEP to patient reviewing proper form sets reps and frequency and safety precautions with patient verbalizing and demonstrating good understanding during visit. Prvided patient with lumbar LSO providing verbal instruction and demonstration for donning and doffing of this device, how to wash and remove metal supports. Ensured proper fit of device and patient able to independently don/doff. ASSESSMENT: Patient seen for routine follow up. No significant change in their symptoms compared to eval. Provided instruction through progressions in lumbar ROm and stabilization exercises with good toelrance from patient. Patient appears to experience their pain when trying to lift or move their extremities which could indicate impaired lumbopelvic stability. provided lumbar LSO providing education for this device as described above. Patient verbalizes good understanding. PLAN: Progress as tolerated focus on flexion based therex program to [...] []Estim/Tens []Mechanical traction []K-tape [] Biofreeze /es/ SHERMAN CHRISTIE PT, DPT PHYSICAL THERAPIST Signed: 05/05/2024 10:33 05/05/2024 ADDENDUM STATUS: COMPLETED Patient inquires what additional medications they can take to help with their pain. Advised patient that this would be best discussed with their primary care team. Please reach out to patient to discuss further. /blaine CHRISTIE PT, DPT PHYSICAL THERAPIST Signed: 05/05/2024 10:34 Receipt Acknowledged By: 05/05/2024 16:09 /ruchi/ CHERIE HUTCHINSON RN-BC REGISTERED NURSE 05/07/2024 09:03 /blaine YATES MD PRIMARY CARE PHYSICIAN 05/07/2024 ADDENDUM STATUS: COMPLETED Please assist the to schedule an appointment with [facility] or [facility] when available. Thank you /blaine YATES MD PRIMARY CARE PHYSICIAN Signed: 05/07/2024 09:04 Receipt Acknowledged By: 05/13/2024 10:53 /blaine CASTRO ADVANCED BLAST FURNACE KEEPER HELPER 05/07/2024 ADDENDUM STATUS: COMPLETED I order Tylenol and he is already on ibuprofen and lidocaine patches. If the pain is not controlled he may need to be reevaluated. Please inform the Thank you. /blaine YATES MD PRIMARY CARE PHYSICIAN Signed: 05/07/2024 09:05 Receipt Acknowledged By: 05/07/2024 09:29 /blaine CHRISTIE PT, DPT PHYSICAL THERAPIST 05/07/2024 ADDENDUM STATUS: COMPLETED Laura please hold a new appointment for now. If the pain is controlled with Tylenol ibuprofen and lidocaine patches he does not need reevaluation. Thank you /blaine YATES MD PRIMARY CARE PHYSICIAN Signed: 05/07/2024 09:08 Receipt Acknowledged By: 05/09/2024 14:43 /blaine CASTRO ADVANCED BLAST FURNACE KEEPER HELPER 05/07/2024 ADDENDUM STATUS: COMPLETED Called [place] and left voicemail requesting call back to PACT at [phone] /ruchi/ CHERIE HUTCHINSON RN-BC REGISTERED NURSE Signed: 05/07/2024 09:44 05/07/2024 ADDENDUM STATUS: COMPLETED Received call back from [place] and reviewed above message from PCP. [place] verbalized understanding of information provided and will follow up with PACT if pain management plan is not sufficient. 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 /es/ FELICIA CASTRO ADVANCED BLAST FURNACE KEEPER HELPER Signed: 05/13/2024 10:54 SHERMAN CHRISTIE
--- OUTSIDE RECORDS SUMMARY | 2025-01-07 12:25 | XMS_ITS | Encounter Summary ---
Author Name [facility] [facility] [place] Address [address] [place] [id number] Care Team Providers Care Net Lead Architect Name Role Phone SHAYLADARIUS WISAM Primary Care Provider Unavail able Insurance Providers: [...] PART B Jul 22, 2012 PART B [id number] EDMUND AMARO PATIENT MEDICARE (WNR) MEDICARE (M) PART B Jul 22, 2012 PART B [id number] EDMUND AMARO PATIENT MEDICARE (WNR) MEDICARE (M) PART B Dec 21, 2011 PART B [id number] EDMUND AMARO PATIENT MEDICARE (WNR) MEDICARE (M) PART A Dec 21, 2011 PART A [id number] EDMUND AMARO PATIENT MEDICARE (WNR) MEDICARE (M) PART A Dec 21, 2011 PART A [id number] EDMUND AMARO PATIENT MEDICARE (WNR) MEDICARE (M) PART B Dec 21, 2011 PART B [id number] EDMUND AMARO PATIENT MEDICARE (WNR) MEDICARE (M) PART A Dec 21, 2011 PART A [id number] EDMUND AMARO PATIENT MEDICARE (WNR) MEDICARE (M) PART A Dec 21, 2011 PART A [id number] [phone] EDMUND AMARO PATIENT Selected Encounter This section includes the information on record at [place] for the Encounter. Date/Time Encounter Type Encounter Description Reason Provider Source Jan 14, 2024 10:30 AM OFFICE O/P EST MOD 30 MIN NEUROLOGY ICD-10-CM G20.A2 Parkinson's disease without dyskinesia, with fluctuations ATIF HUTCHINSON [facility] Encounter Template Text not used by [place] Assessments - Encounter Diagnoses This section includes the primary and secondary diagnoses documented for the Encounter. Date/Time Primary/Secondary Diagnosis Diagnosis Name Provider Source Jan 14, 2024 11:14 AM PRIMARY Parkinson's disease without dyskinesia, with fluctuations ATIF HUTCHINSON [facility] Plan of Treatment: Future Appointments (+ 6 months) and Future Tests (+/- 45 days) The Plan of Treatment section includes future care activities for the patient from all [place] treatmentfacilities. This section includes future appointments and future orders which are active, pending or scheduled. Future Appointments This section includes appointments that were scheduled to occur 6 months from the date of the Encounter, up to a maximum of 20 appointments. The data comes from all [place] treatment facilities. Appointment Date/Time Appointment Type Appointme nt Facility Name Feb 13, 2024 11:00 AM AMBULATORY - MEDICINE [facility] Apr 22, 2024 10:30 AM AMBULATORY [facility] MED[facility]INE [facility] Apr 25, 2024 10:30 AM [facility] May 05, 2024 09:30 AM [facility]ORY - [facility] Jun 02, 2024 11:30 AM [facility]ULATORY - [facility] Jun 18, 2024 11:00 AM [facility]BULATORY - MEDICINE [facility] Vital Signs: All taken on the encounter date This section contains inpatient and outpatient Vital Signs collected on the date of the Encounter. Date/Time Temperature Pulse Blood Pressure Respiratory Rate SP02 Pain Height Weight Body Mass Index Source Jan 14, 2024 10:45 AM 98 80 152/79 18 97 0 189.6 30 [place] [facility] Advance Directives: All historical and current Section Date Range: From patient's date of to the date document was created. This section includes ALL of a patient's completed or amended [place] Advance and Rescinded Directives. The entries below indicate that a directive exists for the patient, but an actual copy is not included with this document. The data comes from all [place] facilities. Date Advance Directives Provider Source Aug 10, 2022 ADVANCE DIRECTIVE [facility] [place] [facility] Encounter Notes: All associated encounter notes This section contains the clinical notes associated to the Encounter. 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 He has some days which are tremor free, and on other days his tremor is reduced in severity, and easier than before to control with medications. Pt reports that he continues on the sinemet IR, 4x/day, though only taking 1.5 tabs at each dose. He feels that this has been very helpful for his tremors, with no adverse effects, though he does observe that his tremors may be worse 15 minutes after taking the medication, but then become significantly better within another 15 minutes. He never started any night dose, but does not feel that he needs, as his sleep is good, his mornings are ok, and he has not been experiencing any RLS or other problems at night. He denies any dysphagia, any constipation, any falls, any hallucinations, any syncopal episodes/presyncope, or any other new problems of note. He says sleep and appetite are both good, and better since the surgery. Pt o/w denies any new issues, illness, injuries, hospitalizations, or concerns. NEUROLOGIC EXAM: Gen: WD WN WM in NAD, appropriate affect, eye contact and social interaction. MS: AAO to Person/Place/Situation Able to maintain attention to conversation and follow directions on exam without distractability, impersistence, or perseveration. Fluent language and intact comprehension, without any paraphasic errors. Normal prosody and word variability/richness. Hypophonia, trace dysarthria. MOTOR: Rest tremor in RUE>LUE of mod amp/mod freq. Same tremor present during extension of hands, or fine motor activity. Parkinsonism during PROM of hands. Mild rigidity of arms. Micro>Bradykinesia in LUE>RUE. Upper (Shld int/ext rotate, bi/tri, wrist ext/flex, fing ext/spread/opp) 5/5 in RUE proximally and distally 5/5 in LUE proximally and distally Lower (hip e/f, hip int/ext rotate, knee e/f, dors/plant flex, invert/lula) 5/5 in RLE proximally and distally 5/5 in LLE proximally and distally No Matched effort, no give-way strength No pronator drift, no posting No atrophy or hypertrophy noted No dystonic posturing, dyskinesias, chorea, or myoclonus. COORDINATION: Fine finger movements rapid Rapid Alternating movements of hands--no dysdiadokinesia. Heel-castro tap--accurate, and regular distance and timing GAIT/STANCE: Rises from sitting without difficulty. Posture and stance are normal. No start hesitation. Generally normal stride length, height, speed and arm swing, but evoked tremor during walking. Able to perform heel/toe walk, without imbalance. Vitals Enter at: Jan 14, 2024@10:45 BP: 152/79 P: 80 R: 18 T: 98 189.6 lb [86.00 kg] (01/14/2024 10:45) Assessment/Plan: 78 y/o M w/PD adequately controlled by sinemet IR (25/100mg tabs, 1.5 tabs 4x/day). 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 He prefers to avoid going to community care neurologist unless there is need for new medications or a change in meds or there is a change in condition. His PCM will be renewing his medication, but can refer him to community care if there are new issues. Pt to call if new issues. Atif Hutchinson MD Staff Neurologist [facility] ~30 mins spent on exam, assessment, counseling, and coordination [ X ] Management of Neurologic Condition was reassessed, taking into account pt's complex other medical issues and medications. [ X ] ~50% of exam was spent on discussion and education or coordination Medication Rec per [employer] note on Dec@11:00. NO DISCREPANCIES FOUND other than those listed in note. The patient's medication list/medication history to include Local Active [facility] Prescriptions, Remote Active VA Prescriptions, Non-VA medications, Recently VA Prescriptions (90-180 days), Recently Discontinued VA Prescriptions (90-180 days), and Pending Medication Orders where relevant (e.g., patient is seen by multiple providers in the same day) was compared with CPRS and reviewed with the patient/caregiver and reconciled. Any changes in medications and any medications prescribed by this provider discontinued are documented in this note. Medications not prescribed by this provider will be addressed by pt's PCM or appropriate specialty provider. Discussed risks and possible benefits and mechanism of action of medications prescribed. Pt indicated understanding of the risks of medications, and all questions were answered to pt's satisfaction /ruchi/ ATIF HUTCHINSON MD PHYSICIAN Signed: 01/14/2024 11:14 ATIF HUTCHINSON [place] [facility]
--- OUTSIDE RECORDS SUMMARY | 2025-01-07 12:26 | XMS_ITS | Encounter Summary ---
Author Name [facility] Organization [facility] Address [address] [place] [address] Care Team Providers Care Glove Turner Name Role Phone WISAM ALEXANDER Primary Care [...] PART B Jul 22, 2012 PART B [id number] EDMUND AMARO PATIENT MEDICARE (WNR) MEDICARE (M) PART B Jul 22, 2012 PART B [id number] [phone] EDMUND AMARO PATIENT MEDICARE (WNR) MEDICARE (M) PART A Dec 21, 2011 PART A [id number] EDMUND AMARO PATIENT MEDICARE (WNR) MEDICARE (M) PART B Dec 21, 2011 PART B [id number] EDMUND AMARO PATIENT MEDICARE (WNR) MEDICARE (M) PART B Dec 21, 2011 PART B [id number] [phone] EDMUDN AMARO PATIENT MEDICARE (WNR) MEDICARE (M) PART A Dec 21, 2011 PART A [id number] [facility] EDMUND AMARO PATIENT MEDICARE (WNR) MEDICARE (M) PART A Dec 21, 2011 PART A [id number] EDMUND AMARO PATIENT MEDICARE (WNR) MEDICARE (M) PART A Dec 21, 2011 PART A [id number] EDMUND AMARO PATIENT Selected Encounter This section includes the information on record at [place] for the Encounter. Date/Time Encounter Type Encounter Description Reason Provider Source Apr 22, 2024 10:30 AM OFFICE O/P EST MOD 30 MIN PRIMARY CARE/MEDICINE ICD-10-CM I10 Essential (primary) hypertension BRANDON YATES Maria Del Carmen Encounter Template Text not used by [place] Assessments - Encounter Diagnoses This section includes the primary and secondary diagnoses documented for the Encounter. Date/Time Primary/Secondary Diagnosis Diagnosis Name Provider Source Apr 22, 2024 11:21 AM PRIMARY Essential (primary) hypertension BRANDON YATES Alexis [facility] Apr 22, 2024 11:21 AM SECONDARY Athscl heart disease of [place] coronary artery w/o ang pctrs REBECABRANDON NAYLOR Alexis [facility] Apr 22, 2024 11:21 AM SECONDARY Gastro-esophageal reflux dis with esophagitis, without bleed BRANDON YATES [facility] Apr 22, 2024 11:21 AM SECONDARY Low back pain, unspecified REBECALEBRANDON Oneil [facility] Apr 22, 2024 11:21 AM SECONDARY Mixed hyperlipidemia BRANDON YATES Alexis [facility] Apr 22, 2024 11:21 AM SECONDARY Parkinson's disease without dyskinesia, with fluctuations BRANDON YATES [facility] Plan of Treatment: Future Appointments (+ 6 [...] Appointment Type Appointme nt Facility Name Apr 25, 2024 10:30 AM AMBULATORY - [facility] May 05, 2024 09:30 AM AMBULATORY - REHAB MEDICIN [facility] Jun 02, 2024 11:30 AM AMBULATORY - REHAB MEDICIN E [facility] Jun 18, 2024 11:00 AM AMBULATORY - MEDICINE REGLA ROSAS Sep 24, 2024 10:00 AM AMBULATORY - MEDICINE [facility] Active, Pending, and Scheduled Orders This section includes a listing of several types of active, pending, and scheduled orders, including clinic medications orders, diagnostic test orders, procedure orders and consult orders; where the start date of the order is 45 days before the date of the Encounter or 45 days after the date of theEncounter. The data comes from all [place] treatment facilities. Test Date/Time Test Type Test Details Facility Name Apr 22, 2024 11:06 AM Consult Order [facility]UROLOGY Cons [employer] [facility] Vital Signs: All taken on the encounter date This section contains inpatient and outpatient Vital Signs collected on the date of the Encounter. Date/Time Temperature Pulse Blood Pressure Respiratory Rate SP02 Pain Height Weight Body Mass Index Source Apr 22, 2024 10:29 AM 176/67 [place] Apr 22, 2024 10:29 AM 98.4 66 182/76 95 187 29 [facility] IE Social History: Smoking Status (Most current) and Tobacco Use (All prior to encounter date) This section includes the most current, and the historical, smoking and tobacco- related health factors from the [place] facility where the Encounter took place. Current Smoking Status This section includes the most current smoking, or tobacco-related health factor, from the [place] facility where the Encounter took place. Date/Time Current Smoking Status Comment Facil ity Aug 28, 2023 10:30 AM VA-TOBACCO FORMER USER [facility] Tobacco Use History This section includes a history of the smoking, or tobacco-related health factors, that were collected on or before the date of the Encounter. The data comes from the [place] facility where the Encounter took place. Date/Time Smoking Status/Tobacco Use Comment F acility Aug 28, 2023 10:30 AM VA-TOBACCO QUIT 15 YRS OR MORE [facility] Aug 10, 2022 10:00 AM VA-TOBACCO NEVER USED [facility] Mar 24, 2021 10:00 AM VA-TOBACCO FORMER USER [facility] Mar 24, 2021 10:00 AM VA-TOBACCO QUIT 15 YRS OR MORE [facility] Apr 28, 2019 01:25 PM VA-TOBACCO NEVER USED [facility] Feb 08, 2018 02:23 PM QUIT TOBACCO USE > 7 YEARS AGO [facility] February 19, 2017 10:09 AM QUIT TOBACCO USE > 7 YEARS AGO QUIT 40 YRS AGO [facility] March 16, 2016 09:54 AM QUIT TOBACCO USE > 7 YEARS AGO [facility] Sep 15, 2014 10:01 AM QUIT TOBACCO USE > 7 YEARS AGO [facility] Advance Directives: All historical and current Section [...] Aug 10, 2022 ADVANCE DIRECTIVE ELVA JARAMILLO [facility] Encounter Notes: All associated encounter notes This section contains the clinical notes associated to the Encounter. Date/Time Encounter Note(s) Provider Source Sep 19, 2024 03:55 PM ADDENDUM: LOCAL TITLE: Addendum STANDARD TITLE: ADDENDUM DATE OF NOTE: SEP 19, 2024@15:55:24 ENTRY DATE: SEP 19, 2024@15:55:25 AUTHOR: JACINDA SANTILLAN EXP COSIGNER: URGENCY: STATUS: COMPLETED Serum potassium elevated to 5.6 with BUN elevated to 28. Maintained on lisinopril for hypertension. Please telephone the patient and advise he stop lisinopril until he can be evaluated by his PCP on 09/24. Further advised to drink plenty of water. I have ordered repeat BMP for 09/24. He should arrive to the clinic early on his appointment date for lab draw. Thank you. /ruchi/ JACINDA SANTILLAN NP NURSE PRACTITIONER Signed: 09/19/2024 15:56 Receipt Acknowledged By: 09/22/2024 15:55 /ruchi/ JADE CASTRO RN REGISTERED NURSE ======== --- Original Document --- 04/22/24 NOTE: HISTORY OF PRESENT ILLNESS: CHUY AMARO, is a 78 yo MALE , who presents at the [facility] for c/o lower back pain, he followed up with neurology in [place]- Dr Wise-who retired followed up with Dr May retired Non- VA providers- NA Urology- [facility] Active problems - Computerized Problem List is the source for the followin-Chronic low back pain 2-HTN 3-HLP 4-GERD 5-CAD The following VA and Non-VA meds were reconciled with patient: Active Outpatient Medications (including Supplies): Issue Date Status Last Fill Active Outpatient Medications Refills Expiration === 1) CARBIDOPA 25/LEVODOPA 100MG TAB Qty: ACTIVE Issu:01-14-24 720 for 90 days Sig: TAKE 2 TABLETS Refills: 3 Last:03-01-24 BY MOUTH FOUR TIMES A DAY FOR Expr:01-14-25 PARKINSON SYMPTOMS 2) CARVEDILOL 6.25MG TAB Qty: 180 for 90 ACTIVE Issu:06-07-23 days Sig: TAKE ONE TABLET BY MOUTH Refills: 0 Last:03-09-24 TWICE DAILY Expr:06-07-24 3) CHOLECALCIF 50MCG (D3-2,000UNIT) TAB ACTIVE Issu:07-21-23 Qty: 100 for 90 days Sig: TAKE ONE Refills: 1 Last:03-02-24 TABLET BY MOUTH EVERY DAY FOR VITAMIN Expr:07-21-24 SUPPLEMENTATION 4) LIDOCAINE 5% PATCH Qty: 5 for 5 days ACTIVE Issu:04-21-24 Sig: APPLY 1 PATCH TOPICALLY ONCE Refills: 0 Last:04-21-24 DAILY NEEDED (LEAVE PATCH ON FOR 12 Expr:05-21-24 HOURS, THEN REMOVE PATCH) 5) LISINOPRIL 40MG TAB Qty: 90 for 90 days ACTIVE Issu:09-30-23 Sig: TAKE ONE TABLET BY MOUTH DAILY TO Refills: 1 Last:01-24-24 CONTROL BLOOD PRESSURE Expr:07-21-24 6) PANTOPRAZOLE NA 20MG EC TAB Qty: 90 for ACTIVE Issu:08-28-23 90 days Sig: TAKE ONE TABLET BY MOUTH Refills: 2 Last:08-28-23 EVERY MORNING 30 MINUTES BEFORE Expr:08-28-24 BREAKFAST Start Date Active Non-VA Medications Refills Expiration === 1) Non-VA ASPIRIN 81MG EC TAB SiMG BY ACTIVE MOUTH DAILY 2) Non-VA IBUPROFEN 600MG TAB SiMG ACTIVE BY MOUTH ONCE DAILY NEEDED 8 Total Medications ALLERGIES: ========= Patient has answered NKA LAB HISTORY: BMP, LFTs, lipids, GFR, TSH, hemoglobin Z9zovoqcg normal limits Hemoglobin 12.3stable and the rest of CBC normal limits PMH: Hypertension, hypercholesterolemia, CAD, GERD, prostate cancer- s/p RxT, vitamin D deficiency, parkinsonian tremor, SURGICAL HISTORY: angioplasty -2006 Left TKR- 12/2020 Rifgt TKR- 10/2020 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 FAMILY HISTORY: mother- father- - heavy smoker SOCIAL HISTORY: with 1 child Smoking denies- quit in 1966 Drugs denies Alcohol- socially HISTORY: PERIOD OF SERVICE - [employer] FROM Jan TO Aug COMBAT SERVICE INDICATED: No REVIEW OF SYSTEMS: No fever, chills, No chest pain shortness of breath at rest No cough or wheezing No abdominal pain nausea or vomiting chronic low back pain , radiating right buttock on and off no headaches or dizziness; negative for urine or feces incontinence Negative for tingling or numbness in right toes PHYSICAL EXAMINATION: WD/overweight seems to be in NAD S1-S2 positive, RRR; mild sm aortic area ALLI, CTA bilateral Abdomen soft nontender to palpation No edema lower extremities AAO x3; b/l hands intentional tremor ASSESSMENT/PLAN: 1-Chronic low back pain-on and off for the last 3 weeks the [place] went yesterday to emergency room [facility] and he was discharged home with lidocaine patches and advised to do physical therapy Continue lidocaine patches and Tylenol-ordered Physical therapy consultation placed and I discussed with physical therapy team- the will have arrangements for rolling walker, brace He was placed on waiting list Methocarbamol low-dose 250 mg p.o. nightly as needed-prescription sent to the pharmacy The [place] is not interested at this time to have further investigation-he states he will leave in 2 weeks in a cruise with his family If low back pain continue without improvement he will need an MRI of LS spine The [place] is in agreement with all above He will let our office know if he does not see any improvement in his symptoms with above management 2-HTN-blood pressure mild elevated today in office but asymptomatic Repeated blood pressure 162/79 to have a 71 The [place] states monitors blood pressure almost every day and he systolic blood pressure is usually in 120s He states always blood pressure is elevated in doctor's office Continue current medications 8-ZOQ-ebzutshr statins Lipid normal limits 9-[facility]-lxxclgci PPI 6-OWV-rwprjeoj baby aspirin, beta-terry statins healthy diet and exercise as tolerated 6-Parkinson disease-continue current medications; neurology consultation community placed FOLLOW UP: ========= RTC -follow-up in August with fasting labs for hypertension hyperlipidemia GERD CAD Today's documentation was made using voice recognition software. This note may contain spelling/grammatical errors secondary to this software. Every effort is made to correct errors, but if mistakes are found they need to be taken in context. UPCOMING APPOINTMENTS: No data available No barriers; Patient understands and agrees to current treatment plan. If pt has any questions, concerns, or changes in current health status he/she will call or come in to the VA. HTN Assess for Elevated BP>=140/90: The patient's blood pressure is usually adequately controlled. No medication changes are indicated at this time. Comment: SBP home in 120's- per patient Medication Reconciliation: Outpatient: Has the patient been taking medications as documented in the EMLR? YES: The patient has been taking medications as documented in the EMLR. Essential Medication List for Review used to complete this medication reconciliation. INCLUDED IN THIS LIST: Alphabetical list of active outpatient prescriptions dispensed from this [place] (local) and dispensed from another [place] or [facility] facility (remote) as well as inpatient orders (local, pending and active), local clinic medications, locally documented non-VA medications, and local prescriptions that have or been discontinued in the past 90 days. - All changes in medications, including all non-VA/Herbal/OTC medications were entered into CPRS. - If there were any medications the patient should no longer take, they were discontinued. - The patient/caregiver was instructed to update this list, discard old lists, and take this list to the next appointment, whether with a VA or non-VA provider. JLV Link Data on this list may not be complete. Please check JLV. Allergies/ADRs (Tool #5) FACILITY ALLERGY/ADR -------- [place] [facility] No Known Allergies [facility] NO KNOWN ALLERGIES Med Recon NoGlossary (Tool #1) INCLUDED IN THIS LIST: Alphabetical list of active outpatient prescriptions dispensed from this [place] (local) and dispensed from another [place] or [facility] facility (remote) as well as inpatient orders (local pending and active), local clinic medications, locally documented non-VA medications, and local prescriptions that have or been discontinued in the past 90 days. Non-VA Meds Last Documented On: Jun 29, 2017 NOTE The display of VA prescriptions dispensed from another [place] or [facility] facility (remote) is limited to active outpatient prescription entries matched to National Drug File at the originating site and may not include some items such as investigational drugs, compounds, etc. NOT INCLUDED IN THIS LIST: Medications self-entered by the patient into personal health records (i.e. [employer]) are NOT included in this list. Non-VA medications documented outside this [place], remote inpatient orders (regardless of status) and remote clinic medications are NOT included in this list. The patient and provider must always discuss medications the patient is taking, regardless of where the medication was dispensed or obtained. -- Non-VA ASPIRIN 81MG EC TAB TAKE ONE TABLET BY MOUTH DAILY Medication prescribed by Non-VA provider. OUTPT ATORVASTATIN CALCIUM 80MG TAB (Status = ) TAKE ONE TABLET BY MOUTH DAILY FOR CHOLESTEROL Rx# [id number] Last Released: 03/31/24 Qty/Days Supply: 90/ Rx Expiration Date: 04/12/24 Refills Remainin OUTPT CARBIDOPA 25/LEVODOPA 100MG TAB (Status = Active) TAKE 2 TABLETS BY MOUTH FOUR TIMES A DAY FOR PARKINSON SYMPTOMS Rx# [id number] Last Released: 02/21/24 Qty/Days Supply: /90 Rx Expiration Date: 01/14/25 Refills Remainin Indication: FOR PARKINSON SYMPTOMS OUTPT CARVEDILOL 6.25MG TAB (Status = Active) TAKE ONE TABLET BY MOUTH TWICE DAILY Rx# [id number] Last Released: 03/13/24 Qty/Days Supply: 180/90 Rx Expiration Date: 06/07/24 Refills Remainin OUTPT CHOLECALCIF 50MCG (D3-2,000UNIT) TAB (Status = Active) TAKE ONE TABLET BY MOUTH EVERY DAY FOR VITAMIN SUPPLEMENTATION Rx# [id number] Last Released: 03/01/24 Qty/Days Supply: 100/ Rx Expiration Date: 07/21/24 Refills Remainin Non-VA IBUPROFEN 600MG TAB TAKE ONE TABLET BY MOUTH ONCE DAILY NEEDED Medication prescribed by Non-VA provider. OUTPT LIDOCAINE 5% PATCH (Status = Active) APPLY 1 PATCH TOPICALLY ONCE DAILY NEEDED (LEAVE PATCH ON FOR 12 HOURS, THEN REMOVE PATCH) Rx# [id number] Last Released: 04/21/24 Qty/Days Supply: 02/23 Rx Expiration Date: 05/21/24 Refills Remainin Indication: FOR NERVE PAIN OUTPT LISINOPRIL 40MG TAB (Status = Active) TAKE ONE TABLET BY MOUTH DAILY TO CONTROL BLOOD PRESSURE Rx# [id number] Last Released: 01/22/24 Qty/Days Supply: Rx Expiration Date: 07/21/24 Refills Remainin OUTPT PANTOPRAZOLE NA 20MG EC TAB (Status = Active) TAKE ONE TABLET BY MOUTH EVERY MORNING 30 MINUTES BEFORE BREAKFAST Rx# [id number] Last Released: 09/07/23 Qty/Days Supply: Rx Expiration Date: 08/28/24 Refills Remainin Indication: [facility] -- SUPPLIES -- /ruchi/ BRANDON YATES MD PRIMARY CARE PHYSICIAN Signed: 04/22/2024 11:23 09/19/2024 ADDENDUM STATUS: COMPLETED Called and left a voicemail message for the to call the clinic back. /es/ JADE CASTRO RN REGISTERED NURSE Signed: 09/19/2024 16:04 09/22/2024 ADDENDUM STATUS: UNSIGNED You may not VIEW this UNSIGNED Addendum. JACINDA SANTILLAN [facility] Apr 22, 2024 10:41 AM PHYSICIAN NOTE: LOCAL TITLE: MD NOTE STANDARD TITLE: PHYSICIAN NOTE DATE OF NOTE: APR 22, 2024@10:41 ENTRY DATE: APR 22, 2024@10:41:32 AUTHOR: BRANDON YATES COSIGNER: URGENCY: STATUS: COMPLETED NOTE Has ADDENDA HISTORY OF PRESENT ILLNESS: CHUY AMARO, is a 78 yo MALE , who presents at the [facility] for c/o lower back pain, he followed up with neurology in [place]- Dr Wise-who retired followed up with Dr May retired Non- VA providers- NA Urology- [facility] [place] [place] Active problems - Computerized Problem List is the source for the followin-Chronic low back pain 2-HTN 3-HLP 4-GERD 5-CAD The following VA and Non-VA meds were reconciled with patient: Active Outpatient Medications (including Supplies): Issue Date Status Last Fill Active Outpatient Medications Refills Expiration === 1) CARBIDOPA 25/LEVODOPA 100MG TAB Qty: ACTIVE Issu:01-14-24 720 for 90 days Sig: TAKE 2 TABLETS Refills: 3 Last:03-01-24 BY MOUTH FOUR TIMES A DAY FOR Expr:01-14-25 PARKINSON SYMPTOMS 2) CARVEDILOL 6.25MG TAB Qty: 180 for 90 ACTIVE Issu:06-07-23 days Sig: TAKE ONE TABLET BY MOUTH Refills: 0 Last:03-09-24 TWICE DAILY Expr:06-07-24 3) CHOLECALCIF 50MCG (D3-2,000UNIT) TAB ACTIVE Issu:07-21-23 Qty: 100 for 90 days Sig: TAKE ONE Refills: 1 Last:03-02-24 TABLET BY MOUTH EVERY DAY FOR VITAMIN Expr:07-21-24 SUPPLEMENTATION 4) LIDOCAINE 5% PATCH Qty: 5 for 5 days ACTIVE Issu:04-21-24 Sig: APPLY 1 PATCH TOPICALLY ONCE Refills: 0 Last:04-21-24 DAILY NEEDED (LEAVE PATCH ON FOR 12 Expr:05-21-24 HOURS, THEN REMOVE PATCH) 5) LISINOPRIL 40MG TAB Qty: 90 for 90 days ACTIVE Issu:07-21-23 Sig: TAKE ONE TABLET BY MOUTH DAILY TO Refills: 1 Last:01-24-24 CONTROL BLOOD PRESSURE Expr:07-21-24 6) PANTOPRAZOLE NA 20MG EC TAB Qty: 90 for ACTIVE Issu:08-28-23 90 days Sig: TAKE ONE TABLET BY MOUTH Refills: 2 Last:08-28-23 EVERY MORNING 30 MINUTES BEFORE Expr:08-28-24 BREAKFAST Start Date Active Non-VA Medications Refills Expiration === 1) Non-VA ASPIRIN 81MG EC TAB SiMG BY ACTIVE MOUTH DAILY 2) Non-VA IBUPROFEN 600MG TAB SiMG ACTIVE BY MOUTH ONCE DAILY NEEDED 8 Total Medications ALLERGIES: ========= Patient has answered NKA LAB HISTORY: BMP, LFTs, lipids, GFR, TSH, hemoglobin M7plujinu normal limits Hemoglobin 12.3stable and the rest of CBC normal limits PMH: Hypertension, hypercholesterolemia, CAD, GERD, prostate cancer- s/p RxT, vitamin D deficiency, parkinsonian tremor, SURGICAL HISTORY: angioplasty -2006 Left TKR- 12/2020 Rifgt TKR- 10/2020 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 FAMILY HISTORY: mother- father- - heavy smoker SOCIAL HISTORY: with 1 child Smoking denies- quit in 1966 Drugs denies Alcohol- socially HISTORY: PERIOD OF SERVICE - [employer] FROM Jan TO Aug COMBAT SERVICE INDICATED: No REVIEW OF SYSTEMS: No fever, chills, No chest pain shortness of breath at rest No cough or wheezing No abdominal pain nausea or vomiting chronic low back pain , radiating right buttock on and off no headaches or dizziness; negative for urine or feces incontinence Negative for tingling or numbness in right toes PHYSICAL EXAMINATION: WD/overweight [place] seems to be in NAD S1-S2 positive, RRR; mild sm aortic area ALLI, CTA bilateral Abdomen soft nontender to palpation No edema lower extremities AAO x3; b/l hands intentional tremor ASSESSMENT/PLAN: 1-Chronic low back pain-on and off for the last 3 weeks the [place] went yesterday to emergency room [facility] and he was discharged home with lidocaine patches and advised to do physical therapy Continue lidocaine patches and Tylenol-ordered Physical therapy consultation placed and I discussed with physical therapy team- the [place] will have arrangements for rolling walker, brace He was placed on waiting list Methocarbamol low-dose 250 mg p.o. nightly as needed-prescription sent to the pharmacy The [place] is not interested at this time to have further investigation-he states he will leave in 2 weeks in a cruise with his family If low back pain continue without improvement he will need an MRI of LS spine The is in agreement with all above He will let our office know if he does not see any improvement in his symptoms with above management 2-HTN-blood pressure mild elevated today in office but asymptomatic Repeated blood pressure 162/79 to have a 71 The states monitors blood pressure almost every day and he systolic blood pressure is usually in 120s He states always blood pressure is elevated in doctor's office Continue current medications 3-ZCT-kpljzrca statins Lipid normal limits 7-WVZX-wktouzyy PPI 9-DGQ-xedfofra baby aspirin, beta-terry statins healthy diet and exercise as tolerated 6-Parkinson disease-continue current medications; neurology consultation community placed FOLLOW UP: ========= RTC -follow-up in August with fasting labs for hypertension hyperlipidemia GERD CAD Today's documentation was made using voice recognition software. This note may contain spelling/grammatical errors secondary to this software. Every effort is made to correct errors, but if mistakes are found they need to be taken in context. UPCOMING APPOINTMENTS: No data available No barriers; Patient understands and agrees to current treatment plan. If pt has any questions, concerns, or changes in current health status he/she will call or come in to the VA. HTN Assess for Elevated BP>=140/90: The patient's blood pressure is usually adequately controlled. No medication changes are indicated at this time. Comment: SBP home in 120's- per patient Medication Reconciliation: Outpatient: Has the patient been taking medications as documented in the EMLR? YES: The patient has been taking medications as documented in the EMLR. Essential Medication List for Review used to complete this medication reconciliation. INCLUDED IN THIS LIST: Alphabetical list of active outpatient prescriptions dispensed from this VA (local) and dispensed from another [place] or [facility] facility (remote) as well as inpatient orders (local, pending and active), local clinic medications, locally documented non-VA medications, and local prescriptions that have or been discontinued in the past 90 days. - All changes in medications, including all non-VA/Herbal/OTC medications were entered into CPRS. - If there were any medications the patient should no longer take, they were discontinued. - The patient/caregiver was instructed to update this list, discard old lists, and take this list to the next appointment, whether with a VA or non-VA provider. JLV Link Data on this list may not be complete. Please check JLV. Allergies/ADRs (Tool #5) FACILITY ALLERGY/ADR -------- [facility] No Known Allergies [facility] NO KNOWN ALLERGIES Med Recon [facility] (Tool #1) INCLUDED IN THIS LIST: Alphabetical list of active outpatient prescriptions dispensed from this [place] (local) and dispensed from another [place] or [facility] facility (remote) as well as inpatient orders (local pending and active), local clinic medications, locally documented non-VA medications, and local prescriptions that have or been discontinued in the past 90 days. Non-VA Meds Last Documented On: Jun 29, 2017 NOTE The display of VA prescriptions dispensed from another [place] or [facility] facility (remote) is limited to active outpatient prescription entries matched to National Drug File at the originating site and may not include some items such as investigational drugs, compounds, etc. NOT INCLUDED IN THIS LIST: Medications self-entered by the patient into personal health records (i.e. [employer]) are NOT included in this list. Non-VA medications documented outside this [place], remote inpatient orders (regardless of status) and remote clinic medications are NOT included in this list. The patient and provider must always discuss medications the patient is taking, regardless of where the medication was dispensed or obtained. -- Non-VA ASPIRIN 81MG EC TAB TAKE ONE TABLET BY MOUTH DAILY Medication prescribed by Non-VA provider. OUTPT ATORVASTATIN CALCIUM 80MG TAB (Status = ) TAKE ONE TABLET BY MOUTH DAILY FOR CHOLESTEROL Rx# [id number] Last Released: 03/31/24 Qty/Days Supply: Rx Expiration Date: 04/12/24 Refills Remainin OUTPT CARBIDOPA 25/LEVODOPA 100MG TAB (Status = Active) TAKE 2 TABLETS BY MOUTH FOUR TIMES A DAY FOR PARKINSON SYMPTOMS Rx# [id number] Last Released: 02/21/24 Qty/Days Supply: Rx Expiration Date: 01/14/25 Refills Remainin Indication: FOR PARKINSON SYMPTOMS OUTPT CARVEDILOL 6.25MG TAB (Status = Active) TAKE ONE TABLET BY MOUTH TWICE DAILY Rx# [id number] Last Released: 03/13/24 Qty/Days Supply: 180 Rx Expiration Date: 06/07/24 Refills Remainin OUTPT CHOLECALCIF 50MCG (D3-2,000UNIT) TAB (Status = Active) TAKE ONE TABLET BY MOUTH EVERY DAY FOR VITAMIN SUPPLEMENTATION Rx# [id number] Last Released: 03/01/24 Qty/Days Supply: 100/ Rx Expiration Date: 07/21/24 Refills Remainin Non-VA IBUPROFEN 600MG TAB TAKE ONE TABLET BY MOUTH ONCE DAILY NEEDED Medication prescribed by Non-VA provider. OUTPT LIDOCAINE 5% PATCH (Status = Active) APPLY 1 PATCH TOPICALLY ONCE DAILY NEEDED (LEAVE PATCH ON FOR 12 HOURS, THEN REMOVE PATCH) Rx# [id number] Last Released: 04/21/24 Qty/Days Supply: 02/23 Rx Expiration Date: 05/21/24 Refills Remainin Indication: FOR NERVE PAIN OUTPT LISINOPRIL 40MG TAB (Status = Active) TAKE ONE TABLET BY MOUTH DAILY TO CONTROL BLOOD PRESSURE Rx# [id number] Last Released: 01/22/24 Qty/Days Supply: Rx Expiration Date: 07/21/24 Refills Remainin OUTPT PANTOPRAZOLE NA 20MG EC TAB (Status = Active) TAKE ONE TABLET BY MOUTH EVERY MORNING 30 MINUTES BEFORE BREAKFAST Rx# [id number] Last Released: 09/07/23 Qty/Days Supply: Rx Expiration Date: 08/28/24 Refills Remainin Indication: [place] -- SUPPLIES -- /ruchi/ BRANDON YATES MD PRIMARY CARE PHYSICIAN Signed: 04/22/2024 11:23 09/19/2024 ADDENDUM STATUS: COMPLETED Serum potassium elevated to 5.6 with BUN elevated to 28. Maintained on lisinopril for hypertension. Please telephone the patient and advise he stop lisinopril until he can be evaluated by his PCP on 09/24. Further advised to drink plenty of water. I have ordered repeat BMP for 09/24. He should arrive to the clinic early on his appointment date for lab draw. Thank you. /ruchi/ JACINDA SANTILLAN NP NURSE PRACTITIONER Signed: 09/19/2024 15:56 Receipt Acknowledged By: 09/22/2024 15:55 /blaine CASTRO RN REGISTERED NURSE 09/19/2024 ADDENDUM STATUS: COMPLETED Called and left a voicemail message for the to call the clinic back. /ruchi/ JADE CASTRO RN REGISTERED NURSE Signed: 09/19/2024 16:04 09/22/2024 ADDENDUM STATUS: COMPLETED Called and spoke to [place]. Forwarded PCP's message. [place] understands and agrees with informatin and follow up treatment plan. /blaine CASTRO RN REGISTERED NURSE Signed: 09/22/2024 15:55 BRANDON YATES [facility]
--- OUTSIDE RECORDS SUMMARY | 2025-01-07 12:26 | XMS_ITS | Encounter Summary ---
Author Name [facility] [place] Organization [facility] [place] Address [address] [place] [id number] Care Team Providers Care Senior Solutions Architect Name Role Phone WISAM ALEXANDER Primary Care [...] PART B Jul 22, 2012 PART B [id number] [phone] EDMUND AMARO PATIENT MEDICARE (WNR) MEDICARE (M) PART B Jul 22, 2012 PART B [id number] EDMUND AMARO PATIENT MEDICARE (WNR) MEDICARE (M) PART A Dec 21, 2011 PART A [id number] EDMUND AMARO PATIENT MEDICARE (WNR) MEDICARE (M) PART B Dec 21, 2011 PART B [id number] [phone] EDMUND AMARO PATIENT MEDICARE (WNR) MEDICARE (M) PART A Dec 21, 2011 PART A [id number] EDMUND AMARO PATIENT MEDICARE (WNR) MEDICARE (M) PART B Dec 21, 2011 PART B [id number] EDMUND AMARO PATIENT MEDICARE (WNR) MEDICARE (M) PART A Dec 21, 2011 PART A [id number] EDMUND AMARO PATIENT MEDICARE (WNR) MEDICARE (M) PART A Dec 21, 2011 PART A [id number] [phone] EDMUND AMARO PATIENT Selected Encounter This section includes the information on record at [place] for the Encounter. Date/Time Encounter Type Encounter Description Reason Provider Source Dec 15, 2024 10:30 AM TTE W/DOPPLER COMPLETE CARDIAC ECHO ICD-10-CM Z95.2 Presence of prosthetic heart valve FADY GARCIA IHMaria Del Carmen Encounter Template Text not used by [place] Assessments - Encounter Diagnoses This section includes the primary and secondary diagnoses documented for the Encounter. Date/Time Primary/Secondary Diagnosis Diagnosis Name Provider Source Dec 15, 2024 11:17 AM PRIMARY Presence of prosthetic heart valve BONNIE WATKINS Plan of Treatment: Future Appointments (+ 6 months) and Future Tests (+/- 45 days) The Plan of Treatment section includes future care activities for the patient from all [place] treatmentfacilities. This section includes future appointments and future orders which are active, pending or scheduled. Future Appointments This section includes appointments that were scheduled to occur 6 months from the date of the Encounter, up to a maximum of 20 appointments. The data comes from all [place] treatment facilities. Appointment Date/Time Appointment Type Appointme nt Facility Name Jan 07, 2025 07:00 AM [facility] Mar 23, 2025 09:30 AM [facility] Vital Signs: All taken on the encounter date This section contains inpatient and outpatient Vital Signs collected on the date of the Encounter. Date/Time Temperature Pulse Blood Pressure Respiratory Rate SP02 Pain Height Weight Body Mass Index Source Dec 15, 2024 10:21 AM 97.8 58 146/61 99 0 179 26 [place] Advance Directives: All historical and current Section Date Range: From patient's date of to the date document was created. This section includes ALL of a patient's completed or amended [place] Advance and Rescinded Directives. The entries below indicate that a directive exists for the patient, but an actual copy is not included with this document. The data comes from all [place] facilities. Date Advance Directives Provider Source Aug 10, 2022 ADVANCE DIRECTIVE ELVA JARAMILLO [facility] Encounter Notes: All associated encounter notes This section contains the clinical notes associated to the Encounter. Date/Time Encounter Note(s) Provider Source Dec 15, 2024 05:33 PM CARDIOLOGY NOTE: LOCAL TITLE: CARDIAC NON INVASIVE IMAGING NOTE STANDARD TITLE: CARDIOLOGY NOTE DATE OF NOTE: DEC 15, 2024@17:33:55 ENTRY DATE: DEC 15, 2024@17:33:55 AUTHOR: CLINICAL,DEVICE PRO EXP COSIGNER: URGENCY: STATUS: COMPLETED DOCUMENT IN [facility]AG[facility] SEE FULL REPORT IN VISTA IMAGING SIGNATURE NOT REQUIRED SEE SIGNATURE IN VISTA IMAGING (XCELERA Echo Newt) AUTO-INSTRUMENT DIAGNOSIS Procedure: Adult Adult Release Status: Released Off-Line Verified Date Verified: Dec 15, 2024@17:33:33 [id number] + + [facility] : : [address] [place] [address] Avenue : : [place] + + [place] [phone] Adult Echocardiogram Name: CHUY AMARO Study Date: 12/15/2024 10:43 AMPerformed By: Referring Age: 79 yrs Physician: CHRISTINE GARCIA : 1945 Gender: Male Patient Location: [facility] Reason For Study: TAVR Height: 69 in Weight: 179 lb PROCEDURE Complete 2 Dimensional Echocardiogram , Doppler and color flow velocity mapping (69549). Quality of the study is good. MMode/2D Measurements \T\ Calculations IVSd: 0.83 cm LVIDd: 5.0 cm LVOT diam: 2.1 cm LA dimension: 4.9 cm LVPWd: 0.86 cm LVIDs: 4.2 cm LV mass(C)dI: 74.4 grams/m2 Doppler Measurements \T\ Calculations MV E/A: 0.83 Ao V2 max: 199.5 cm/sec LV V1 max: 130.3 cm/sec Ao max P.9 mmHg LV V1 VTI: 30.1 cm Ao V2 mean: 125.9 cm/sec Ao mean P.4 mmHg Ao V2 VTI: 44.3 cm LORRAINE(I,D): 2.3 cm2 LORRAINE(V,D): 2.2 cm2 ATRIA The left atrial size is normal. Right atrial size is normal. IVC is normal in size with normal inspiratory collapse suggestive of normal right atrial pressure. LEFT VENTRICLE The left ventricle is normal in size. There is normal left ventricular wall thickness. Left ventricular systolic function is normal. Ejection Fraction = 65%. There is hypokinesis of the basilar inferior wall segment(s). There is hypokinesis of the basilar inferolateral wall segment(s). The degree of hypokinesis is mild. Normal diastolic function for age. RIGHT VENTRICLE The right ventricle is normal in size and function. AORTIC VALVE There is a bioprosthetic aortic valve. The valve is a transcatheter valve (DAVID) . Peak velocity 2.0 m/s, mean gradient 7 mm Hg, dimensionless index 0.66. There is mild perivalvular Aortic regurgitation. MITRAL VALVE The mitral valve leaflets appear normal. There is no evidence of stenosis, fluttering, or prolapse. There is no mitral regurgitation noted. TRICUSPID VALVE The tricuspid valve is normal. There is no tricuspid stenosis. There is trace tricuspid regurgitation. Right ventricular systolic pressure is normal. PULMONIC VALVE The pulmonic valve is not well seen, but is grossly normal. There is no pulmonic valvular regurgitation. PERICARDIUM/PLEURA There is no pericardial effusion. GREAT VESSELS The aortic root is normal size. PRIOR STUDIES Compared to the images of prior study dated 08/01/2023 patient is s/p TAVR. Interpretation Summary 1- Normal left and right ventricular size and systolic funciton with mild hypokinesis of basilar inferior and inferolateral banks ejection fraction 65%. 2- Normal functioning transcatheter aortic valve with dimension-less index 0.67. Mild perivalvular regurgitation 3- No other signicant valvular abnormalities 4- No other significant valvular abnormilities. 5- No pericardial effusion [id number] Administrative Closure: 12/15/2024 by: DEVICE PROXY SERVICE CLINICAL Clinical Device Proxy Service CLINICAL,DEVICE PROXY SERVICE CATHERINE
--- OUTSIDE RECORDS SUMMARY | 2025-01-07 12:26 | XMS_ITS | Encounter Summary ---
Author Name [facility] [place] [facility] [place] Organization [facility] [place] Address [address] [place] [address] Care Team Providers Care Portfolio Assistant Name Role Phone WISAM ALEXANDER Primary Care [...] PART B Jul 22, 2012 PART B [id number] EDMUND AMARO PATIENT MEDICARE (WNR) MEDICARE (M) PART B Jul 22, 2012 PART B [id number] EDMUND AMARO PATIENT MEDICARE (WNR) MEDICARE (M) PART B Dec 21, 2011 PART B [id number] [phone] EDMUND AMARO PATIENT MEDICARE (WNR) MEDICARE (M) PART A Dec 21, 2011 PART A [id number] [id number] EDMUND AMARO PATIENT MEDICARE (WNR) MEDICARE (M) PART A Dec 21, 2011 PART A [id number] EDMUND AMARO PATIENT MEDICARE (WNR) MEDICARE (M) PART B Dec 21, 2011 PART B [id number] [facility] [phone] EDMUND AMARO PATIENT MEDICARE (WNR) MEDICARE (M) PART A Dec 21, 2011 PART A [id number] EDMUND AMARO PATIENT MEDICARE (WNR) MEDICARE (M) PART A Dec 21, 2011 PART A [id number] EDMUND AMARO PATIENT Selected Encounter This section includes the information on record at [place] for the Encounter. Date/Time Encounter Type Encounter Description Reason Provider Source Dec 15, 2024 11:30 AM OFFICE O/P EST MOD 30 MIN CARDIOLOGY ICD-10-CM I10 Essential (primary) hypertension DANIEL LOCKETT [facility] Encounter Template Text not used by [place] Assessments - Encounter Diagnoses This section includes the primary and secondary diagnoses documented for the Encounter. Date/Time Primary/Secondary Diagnosis Diagnosis Name Provider Source Dec 15, 2024 12:15 PM PRIMARY Essential (primary) hypertension DANILO LOCKETT Plan of Treatment: Future Appointments (+ 6 months) and Future Tests (+/- 45 days) The Plan of Treatment section includes future care activities for the patient from all [place] treatmentfacilities. This section includes future appointments and future orders which are active, pending or scheduled. Future Appointments This section includes appointments that were scheduled to occur 6 months from the date of the Encounter, up to a maximum of 20 appointments. The data comes from all [place] treatment facilities. Appointment Date/Time Appointment Type Appointme nt Facility Name Jan 07, 2025 07:00 AM [facility] Mar 23, 2025 09:30 AM AM[facility]ULAT[facility] - MEDICINE [facility] Vital Signs: All taken on the [...] ALL of a patient's completed or amended [place] Advance and Rescinded Directives. The entries below indicate that a directive exists for the patient, but an actual copy is not included with this document. The data comes from all [place] facilities. Date Advance Directives Provider Source Aug 10, 2022 ADVANCE DIRECTIVE ELVA JARAMILLO [facility] Encounter Notes: All associated encounter notes This section contains the clinical notes associated to the Encounter. 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 continues to stack wood on his property . no issues with walking 1 flight of stairs w/o issues HF - no peripheral edema, no orthopena, no PND Arrhythmia - no palpitations, no LH, no dizziness complaints Still able to maintain full independece including driving. Since TAVR has been able to walk to along his property w/o having to stop for dyspnea/chest pain complaints Has yearly follow-up with TAVR team at [facility] Partial meds: Coreg 6.25 mg BID Atorvastatin 80 mg once daily ASA 81 mg once daily Lisinopril 40 mg once daily NKDA Vitals: 12/15/24 10:21 T: 97.8 F (36.6 C) (TEMPORAL) P: 58* B/P: 146/61 (R ARM, SITTING, ADULT CUFF, CUFF-AUTOMATED) Wt: 179.00 lb (81.19 kg) (ACTUAL, STANDING WEIGHT) Body Mass Index: 26 Pulse Oximetry: 99% via ROOM AIR Pain: 0 - No pain Gen-NAD, pleasant, walks with a cane but is not using it Neck- no JVD CV- nl S1/S2, RRR with occ ectopic beats, II/ systolic murmur, and I/IV diastolic murmur Lungs- clear Ext- warm, no edema SB 54 bpm, 379 ms Labs: a1c 5.2 13.4 251 66 121 56 51 > 52 5.6 1.1 Studies: TTE 08/13: Normal LV size and systolic function. EF 65%. Severe calcific valvular . Peak velocity 4.1 m/sec, mean gradient 48 mmHg, DI 0.24, LORRAINE 0.8 cm2. Cath 11/2023: RHC RA 6-7 PA 42/8 (mean 24) PCWP 11 LVEDP 15-16 CO 3.86/CI 1.9 Mean gradien t47, LORRAINE 0.66 cm2 Coronary angiography: ENVIRONMENTAL TECHNICAL OFFICER of mid to distal RCA and stented segment with good L--> R collaterals LM, LAD, and LCx are widely patent Minimal LM and LCx disease noted. Mild diffuse LAD disease. TTE (30d post TAVR) 01/2024: Normal LV size, mild proximal septal hypertrophy (1.3 cm). Normal LV systolic function. EF =60-65%. Inferobasilaer AK and aneurysmal changes. Normal RV size and systolic function. s/p TAVR that is poorly visualized. No central insufficiency. Mild/mod perivalvular leak. No change from 12/26/23 TTE. A/P 79 year old man with hypertension, hyperlipidemia, CAD s/p remote PCI, and aortic stenosis status post recent TAVR. No cardiac complaints -Continue ASA for valve and CAD. -He will need antibiotic prophylaxis; not frequently seeing dentist but should take amoxicillin 2 g 30 mins prior to dental work - has yearly follow-up with TAVR team at [facility] in 12 mos On the date of the encounter I spent >30 minutes on some or all of the following: chart review, history, physical examination, treatment planning, education and counseling of the patient/family/caregiver, placing orders, communicated with other healthcare providers as part of cardiac care of this and documentation in the electronic health record /ruchi/ DANILO LOCKETT DO ATTENDING, CARDIOLOGY Signed: 12/15/2024 12:15 DANILO LOCKETT
--- OUTSIDE RECORDS SUMMARY | 2025-01-07 12:26 | XMS_ITS | Continuity of Care Document ---
Author Name [facility] Organization [facility] Care Team Providers Care Tapping Machine Operator Name Role Phone [facility] Unavailable Unavailable Problems Combined list of problems from Department of Defense and Veterans Affairs facilities. It does not include entries that were removed or entered in error. Problem Status Onset Date Problem Type Date of Resolution Comments Source History of malignant neoplasm of prostate Active 07/08/20 24 Condition February 20, 2018 Entered By: FRANK EWING Comment: s/p radiation [place] Aortic stenosis Active Condition Sep 24, 2024 Entered By: NITIN HARMON Comment: s/p valve replacement 04/2024 [facility] [place] [facility] Benign essential hypertension (SNOMED CT 4696584) Active Condition [place] Bilateral osteoarthritis of knees Active Condition Feb 18, 2015 Entered By: ANNALEE GARDNER Comment: laney knees [place] Coronary arteriosclerosis Active Condition Sep 15 4 Entered By: ANNALEE GARDNER Comment: s/p stentX1 in 2006; [place] Exposure to potentially hazardous substance Active Condition Jan 11, 2024 Entered By: KIMANI SALAZAR Comment: ARNALDO screening Snomed code connected 02/27/23Dec 2023 Entered By: NITIN HARMON Comment: Agent [place] [facility] Former smoker Active Condition Sep Entered By: NITIN HARMON Comment: quit 1988 [facility] [facility] History of total knee replacement of both knees Active Condition [facility] LBP - Low back pain Active Condition [facility] Mixed hyperlipidaemia Active Condition [facility] Parkinsons disease Active Condition [facility] Screening due Active Condition February Entered By: SUNSHINE HUNTER Comment: Never Had Screen Colonoscopy; Still Declines as of MARCH 06 [place] Tinnitus Active Condition [facility] Vitamin D deficiency Active Condition [place] Gastro-esophageal reflux disease Inactive Condition 09/24/2024 [facility] [place] Diagnosis: ICD-10-CM I10 Essential (primary) hypertension Active Diagnosis [place] Diagnosis: ICD-10-CM Z95.2 Presence of prosthetic heart valve [facility] Diagnosis: ICD-10-CM Z13.6 Encounter for screening for cardiovascular disorders Active Diagnosis [place] Diagnosis: ICD-10-CM G20.A2 Parkinson's disease without dyskinesia, with fluctuations Active Diagnosis [facility] [place] Diagnosis: ICD-10-CM M54.50 Low back pain, unspecified Active Diagnosis [place] Diagnosis: ICD-10-CM I35.0 Nonrheumatic aortic (valve) stenosis [facility] Diagnosis: ICD-10-CM G20.A1 Parkinson's dis w/o dyskinesia, w/o mention of fluctuations Active Diagnosis [facility] Medications Combined list of outpatient medications from Department of Defense and Veterans Affairs facilities.Medications provided include 1) outpatient medications from the last 15 months, and 2) patient-reported medications. Medication Details Route Status Patient Instructions Prescription Expires Prescription Number Last Dispense Date Ordering Provider Order Date Order Qty Source ACETAMINOPH EN 500MG TAB TAKE ONE TABLET BY MOUTH THREE TIMES DAILY NEEDED FOR PAIN ORAL ACTIVE 05/08/2025 [id number] MIKIE YATES [facility] 2023 300 [facility] [place] ASPIRIN 81MG TAB,EC TAKE ONE TABLET BY MOUTH DAILY ORAL ACTIVE DARWIN GARDNER 2013 [facility] [place] ATORVASTATI N CA 80MG TAB TAKE ONE TABLET BY MOUTH DAILY FOR CHOLESTE ROL ORAL ACTIVE 09/25/2025 [id number] 5 Héctor HARMON 2024 90 [facility] [place] ATORVASTATI N [place] 80MG TAB TAKE ONE TABLET BY MOUTH DAILY FOR CHOLESTE ROL ORAL DISCONT INUED 04/23/2025 [id number] 4 MIKIE YATES F 2023 90 [facility] [place] ATORVASTATI N [place] 80MG TAB TAKE ONE TABLET BY MOUTH DAILY FOR CHOLESTE ROL ORAL DISCONT INUED 04/12/2024 [id number] 4 MIKIE YATES F 09/03/ 2023 90 [place] CARBIDOPA 25MG/LEVODO PA 100MG TAB TAKE 2 TABLETS BY MOUTH FOUR TIMES A DAY FOR PARKINSO N SYMPTOMS ORAL ACTIVE 01/14/2025 [id number] 5 SAVANA HUTCHINSON Y 2023 720 [facility] CARBIDOPA 25MG/LEVODO PA 100MG TAB TAKE 2 TABLETS BY MOUTH FOUR TIMES A DAY FOR PARKINSO N SYMPTOMS ORAL DISCONT INUED 12/12/2024 [id number] 4 SAVANA HUTCHINSON Y 2023 720 [facility] CARVEDILOL 6.25MG TAB TAKE ONE TABLET BY MOUTH TWICE DAILY ORAL ACTIVE 09/25/2025 [id number] 5 Héctor HARMON 2024 180 [place] CARVEDILOL 6.25MG TAB TAKE ONE TABLET BY MOUTH TWICE DAILY ORAL DISCONT INUED 04/23/2025 [id number] 4 MIKIE YATES F 2023 180 [place] CARVEDILOL 6.25MG TAB TAKE ONE TABLET BY MOUTH TWICE DAILY ORAL DISCONT INUED 06/07/2024 [id number] 4 MIKIE YATES F 2022 180 [place] CHOLECALCIF RENETTA 50MCG (2,000UNIT) TAB TAKE ONE TABLET BY MOUTH EVERY DAY FOR VITAMIN SUPPLEME NTATION ORAL ACTIVE 09/25/2025 [id number] 5 Héctor HARMON 2023 100 [place] CHOLECALCIF RENETTA 50MCG (2,000UNIT) TAB TAKE ONE TABLET BY MOUTH EVERY DAY FOR VITAMIN SUPPLEME NTATION ORAL DISCONT INUED 2024 [id number] 4 MIKIE YATES F 2022 100 [place] IBUPROFEN 600MG TAB TAKE ONE TABLET BY MOUTH ONCE DAILY NEEDED ORAL ACTIVE Elizabet DUNNE 2016 [place] LIDOCAINE 5% PATCH APPLY 1 PATCH TOPICALL Y ONCE DAILY NEEDED (LEAVE PATCH ON FOR 12 HOURS, THEN REMOVE PATCH) TOPICA L 05/21/2024 [id number] CAROLINA STEVENSON IELLE 2023 5 [place] PTJOSSE LISINOPRIL 40MG TAB TAKE ONE TABLET BY MOUTH DAILY TO CONTROL BLOOD PRESSURE ORAL DISCONT INUED BY PROVIDE R 08/06/2025 [id number] 4 MIKIE YATES RMMARIA ALEJANDRA F 2023 90 [place] LISINOPRIL 40MG TAB TAKE ONE TABLET BY MOUTH DAILY TO CONTROL BLOOD PRESSURE ORAL DISCONT INUED 2024 [id number] 4 MIKIE YATES RMEN F 2022 90 [place] METHOCARBAM OL 500MG TAB TAKE ONE-HALF TABLET BY MOUTH AT BEDTIME NEEDED FOR MUSCLE SPASM ORAL 05/22/2024 [id number] 4 MIKIE YATES RMMARIA ALEJANDRA F 2023 10 [facility] [place] Immunizations Combined list of available immunizations from the Department of Defense and Veterans Affairs facilities. Immunization Series Date Given Administered By Site Reaction Lot Number CVX Code Drug Chief Wellness Officer Status Comments Source COVID-19 (MODERNA), MRNA, LNP-S, PF, 50 MCG/0.5 ML (AGES 12+ YEARS) 2023 ESPERANZA MARVIN LEFT DELTO ID [id number] 312 complet ed [place] INFLUENZA, HIGH-DOSE, TRIVALENT, PF 2023 ESPERANZA MARVIN LEFT DELTO ID [id number] 135 complet ed [place] INFLUENZA, HIGH-DOSE, QUADRIVALENT 2022 ESPERANZA MARVIN LEFT DELTO ID [id number] 197 complet ed [place] INFLUENZA VACCINE, QUADRIVALENT, ADJUVANTED 2021 205 complet ed [place] ZOSTER RECOMBINANT 2 2020 187 complet ed [place] INFLUENZA VACCINE, QUADRIVALENT, ADJUVANTED 2020 205 complet ed [place] ZOSTER RECOMBINANT 1 2020 187 complet ed [place] COVID-19 (MODERNA), MRNA, LNP-S, PF, 100 MCG/0.5 ML DOSE 2 2020 207 complet ed MOD; [id number]; 1 [place] COVID-19 (MODERNA), MRNA, LNP-S, PF, 100 MCG/0.5 ML DOSE 1 2020 207 complet ed MOD; [id number]; 1 [place] INFLUENZA, INJECTABLE, QUADRIVALENT, PRESERVATIVE FREE 2019 150 complet ed [place] INFLUENZA, INJECTABLE, QUADRIVALENT, PRESERVATIVE FREE 2018 150 complet ed Site: Right Deltoid [place] INFLUENZA, INJECTABLE, QUADRIVALENT 2017 158 complet ed Site: Right Deltoid [place] INFLUENZA, SEASONAL, INJECTABLE 2016 141 complet ed Site: Right Deltoid [place] PNEUMOCOCCAL POLYSACCHARID E [id number] 2016 33 complet ed [place] PNEUMOCOCCAL CONJUGATE PCV 13 2015 133 complet ed [place] FLU,3 YRS (HISTORICAL) 2014 88 complet ed Site: Left Deltoid [place] ZOSTER (HISTORICAL) 2014 121 complet ed [place] DTAP, UNSPECIFIED FORMULATION 2013 107 complet ed [place] FLU,3 YRS (HISTORICAL) 2013 88 complet ed [place] Results Combined list of recent chemistry, hematology and other laboratory results from Department of Defense and Veterans Affairs, ranging from 15 months to all on record, depending upon the facility. Order Name Results Value Reference Range Date Interpretation Specimen Comments Source CALCIUM CALCIUM [MASS/VOLUM E] IN SERUM OR PLASMA 9.4 mg/dL 8.5 - 10.2 09/24 Specimen Type: SERUM No comment entered. Ordering Provider: TRUPTI SANTILLAN A Report Released Date/Time: Sep 19, 2024 03:57 PM Reporting Lab: [facility] [address] [address] Performing Lab: [address] [address] [facility] MAGNESIUM MAGNESIUM [MASS/VOLUM E] IN SERUM OR PLASMA 2.1 mg/dL 1.6 - 2.6 09/24 Specimen Type: SERUM No comment entered. Ordering Provider: TRUPTI SANTILLAN A Report Released Date/Time: Sep 19, 2024 03:57 PM Reporting Lab: [facility] [address] [address] Performing Lab: [facility] [address] [address] [place] BASIC METABOLIC PANEL (non-fast ing) UREA NITROGEN [MASS/VOLUM E] IN SERUM OR PLASMA 25 mg/dL 7 - 25 09/24 Specimen Type: SERUM No comment entered. Ordering Provider: TRUPTI SANTILLAN A Report Released Date/Time: Sep 19, 2024 03:57 PM Reporting Lab: [facility] [address] [address] Performing Lab: [address] [address] [place] BASIC METABOLIC PANEL (non-fast ing) GLUCOSE [MASS/VOLUM E] IN SERUM OR PLASMA 88 mg/dL 65 - 100 09/24 Specimen Type: SERUM No comment entered. Ordering Provider: TRUPTI SANTILLAN A Report Released Date/Time: Sep 19, 2024 03:57 PM Reporting Lab: [address] [address] Performing Lab: [facility] [address] [address] [place] BASIC METABOLIC PANEL (non-fast ing) SODIUM [MOLES/VOLU ME] IN SERUM OR PLASMA 138 mmol/L 135 - 145 09/24 Specimen Type: SERUM No comment entered. Ordering Provider: TRUPTI SANTILLAN A Report Released Date/Time: Sep 19, 2024 03:57 PM Reporting Lab: [address] [address] Performing Lab: [facility] [address] [address] [place] BASIC METABOLIC PANEL (non-fast ing) POTASSIUM [MOLES/VOLU ME] IN SERUM OR PLASMA 4.7 mmol/L 3.5 - 5.0 09/24 Specimen Type: SERUM No comment entered. Ordering Provider: TRUPTI SANTILLAN A Report Released Date/Time: Sep 19, 2024 03:57 PM Reporting Lab: [facility] [address] [address] Performing Lab: [facility] [address] [address] [place] BASIC METABOLIC PANEL (non-fast ing) CHLORIDE [MOLES/VOLU ME] IN SERUM OR PLASMA 106 mmol/L 100 - 110 09/24 Specimen Type: SERUM No comment entered. Ordering Provider: TRUPTI SANTILLAN A Report Released Date/Time: Sep 19, 2024 03:57 PM Reporting Lab: [address] [address] Performing Lab: [address] [address] [place] BASIC METABOLIC PANEL (non-fast ing) CARBON DIOXIDE, TOTAL [MOLES/VOLU ME] IN SERUM OR PLASMA 22 meq/L 20 - 30 09/24 Specimen Type: SERUM No comment entered. Ordering Provider: TRUPTI SANTILLAN A Report Released Date/Time: Sep 19, 2024 03:57 PM Reporting Lab: [facility] [address] [address] Performing Lab: [facility] [address] [address] [place] BASIC METABOLIC PANEL (non-fast ing) CREATININE [MASS/VOLUM E] IN SERUM OR PLASMA 1.15 mg/dL 0.50 - 1.40 09/24 Specimen Type: SERUM No comment entered. Ordering Provider: TRUPTI SANTILLAN A Report Released Date/Time: Sep 19, 2024 03:57 PM Reporting Lab: [facility] [address] [address] Performing Lab: [facility] [address] [address] [place] BASIC METABOLIC PANEL (non-fast ing) GLOMERULAR FILTRATION RATE/1.73 SQ M.PREDICTED [VOLUME RATE/AREA] IN SERUM, PLASMA OR BLOOD BY CREATININE- BASED FORMULA (CKD-EPI 2020) 65 mL/min 60 09/24 Specimen Type: SERUM No comment entered. Ordering Provider: TRUPTI SANTILLAN Report Released Date/Time: Sep 19, 2024 03:57 PM Reporting Lab: [address] [address] Performing Lab: [address] [address] [place] LIPID PANEL FASTING CHOLESTEROL [MASS/VOLUM E] IN SERUM OR PLASMA 121 mg/dL 09/15 Specimen Type: SERUM No comment entered. Ordering Provider: ANITA HARMON Report Released Date/Time: Aug 20, 2024 02:49 PM Reporting Lab: [address] [address] Performing Lab: [address] [address] [place] LIPID PANEL FASTING TRIGLYCERID E [MASS/VOLUM E] IN SERUM OR PLASMA 66 mg/dL 0 - 150 09/15 Specimen Type: SERUM No comment entered. Ordering Provider: ANITA HARMON Report Released Date/Time: Aug 20, 2024 02:49 PM Reporting Lab: [address] [address] Performing Lab: [address] [address] [place] LIPID PANEL FASTING CHOLESTEROL IN LDL [MASS/VOLUM E] IN SERUM OR PLASMA BY CALCULATION 52 mg/dL 0 - 129 09/15 Specimen Type: SERUM No comment entered. Ordering Provider: ANITA HARMON Report Released Date/Time: Aug 20, 2024 02:49 PM Reporting Lab: [address] [address] Performing Lab: [address] [address] [place] LIPID PANEL FASTING CHOLESTEROL .TOTAL/CHOL ESTEROL IN HDL [MASS RATIO] IN SERUM OR PLASMA 2.2 09/15 Specimen Type: SERUM No comment entered. Ordering Provider: ANITA HARMON Report Released Date/Time: Aug 20, 2024 02:49 PM Reporting Lab: [address] [address] Performing Lab: [address] [address] [place] LIPID PANEL FASTING CHOLESTEROL IN HDL [MASS/VOLUM E] IN SERUM OR PLASMA 56 mg/dL 40 - 60 09/15 Specimen Type: SERUM No comment entered. Ordering Provider: ANITA HARMON Report Released Date/Time: Aug 20, 2024 02:49 PM Reporting Lab: [address] [address] Performing Lab: [address] [address] [place] BASIC METABOLIC PANEL (fasting) UREA NITROGEN [MASS/VOLUM E] IN SERUM OR PLASMA 28 mg/dL 7 - 25 09/15 H Specimen Type: SERUM No comment entered. Ordering Provider: ANITA HARMON Report Released Date/Time: Aug 20, 2024 02:49 PM Reporting Lab: [address] [address] Performing Lab: [address] [address] [place] BASIC METABOLIC PANEL (fasting) GLUCOSE [MASS/VOLUM E] IN SERUM OR PLASMA 80 mg/dL 65 - 100 09/15 Specimen Type: SERUM No comment entered. Ordering Provider: ANITA HARMON Report Released Date/Time: Aug 20, 2024 02:49 PM Reporting Lab: [address] [address] Performing Lab: [address] [address] [place] BASIC METABOLIC PANEL (fasting) SODIUM [MOLES/VOLU ME] IN SERUM OR PLASMA 136 mmol/L 135 - 145 09/15 Specimen Type: SERUM No comment entered. Ordering Provider: ANITA HARMON Report Released Date/Time: Aug 20, 2024 02:49 PM Reporting Lab: [facility] [address] [address] Performing Lab: [facility] [address] [address] [place] BASIC METABOLIC PANEL (fasting) POTASSIUM [MOLES/VOLU ME] IN SERUM OR PLASMA 5.6 mmol/L 3.5 - 5.0 09/15 H Specimen Type: SERUM No comment entered. Ordering Provider: ANITA HARMON Report Released Date/Time: Aug 20, 2024 02:49 PM Reporting Lab: [address] [address] Performing Lab: [facility] [address] [address] [place] BASIC METABOLIC PANEL (fasting) CHLORIDE [MOLES/VOLU ME] IN SERUM OR PLASMA 104 mmol/L 100 - 110 09/15 Specimen Type: SERUM No comment entered. Ordering Provider: ANITA HARMON Report Released Date/Time: Aug 20, 2024 02:49 PM Reporting Lab: [address] [address] Performing Lab: [facility] [address] [address] [place] BASIC METABOLIC PANEL (fasting) CARBON DIOXIDE, TOTAL [MOLES/VOLU ME] IN SERUM OR PLASMA 21 meq/L 20 - 30 09/15 Specimen Type: SERUM No comment entered. Ordering Provider: ANITA HARMON Report Released Date/Time: Aug 20, 2024 02:49 PM Reporting Lab: [facility] [address] [address] Performing Lab: [facility] [address] [address] [place] BASIC METABOLIC PANEL (fasting) CREATININE [MASS/VOLUM E] IN SERUM OR PLASMA 1.13 mg/dL 0.50 - 1.40 09/15 Specimen Type: SERUM No comment entered. Ordering Provider: ANITA HARMON Report Released Date/Time: Aug 20, 2024 02:49 PM Reporting Lab: [address] [address] Performing Lab: [address] [address] [place] BASIC METABOLIC PANEL (fasting) GLOMERULAR FILTRATION RATE/1.73 SQ M.PREDICTED [VOLUME RATE/AREA] IN SERUM, PLASMA OR BLOOD BY CREATININE- BASED FORMULA (CKD-EPI 2020) 67 mL/min 60 09/15 Specimen Type: SERUM No comment entered. Ordering Provider: ANITA HARMON Report Released Date/Time: Aug 20, 2024 02:49 PM Reporting Lab: [address] [address] Performing Lab: [address] [address] [place] HEMOGLOBI N A1C PANEL HEMOGLOBIN A1C/HEMOGLO BIN.TOTAL IN BLOOD BY HPLC 5.2 4.0 - 5.6 09/15 Specimen Type: BLOOD Comment: Values obtained from A1C measurement s can vary. For atypical A1C assays, a reported value of 7.0 could actually be between 6.72 and 7.28 if measured by a reference method. A reported value of 9.0 could actually be between 8.73 and 9.27. Ref: http://www. ngsp.org/[place] Pdata.asp Ordering Provider: ANITA HARMON Report Released Date/Time: Aug 20, 2024 02:49 PM Reporting Lab: [address] [address] Performing Lab: [address] [address] [place] LIVER FUNCTION PROTEIN [MASS/VOLUM E] IN SERUM OR PLASMA 7.0 g/dL 6.0 - 8.3 09/15 Specimen Type: SERUM No comment entered. Ordering Provider: ANITA HARMON Report Released Date/Time: Aug 20, 2024 02:49 PM Reporting Lab: [address] [address] Performing Lab: [facility] [place] [facility] [address] [address] [place] LIVER FUNCTION ALBUMIN [MASS/VOLUM E] IN SERUM OR PLASMA 4.0 g/dL 3.5 - 5.0 09/15 Specimen Type: SERUM No comment entered. Ordering Provider: ANITA HARMON Report Released Date/Time: Aug 20, 2024 02:49 PM Reporting Lab: [facility] [place] [facility] [address] [address] Performing Lab: [facility] [place] [facility] [address] [address] [place] LIVER FUNCTION ALKALINE PHOSPHATASE [ENZYMATIC ACTIVITY/VO LUME] IN SERUM OR PLASMA 87 U/L 40 - 150 09/15 Specimen Type: SERUM No comment entered. Ordering Provider: ANITA HARMON Report Released Date/Time: Aug 20, 2024 02:49 PM Reporting Lab: [facility] [place] [facility] [address] [address] Performing Lab: [facility] [place] [facility] [address] [address] [place] LIVER FUNCTION ASPARTATE AMINOTRANSF ERASE [ENZYMATIC ACTIVITY/VO LUME] IN SERUM OR PLASMA 16 U/L 5 - 34 09/15 Specimen Type: SERUM No comment entered. Ordering Provider: ANITA HARMON Report Released Date/Time: Aug 20, 2024 02:49 PM Reporting Lab: [facility] [place] [facility] [address] [address] Performing Lab: [facility] [place] [facility] [address] [address] [place] LIVER FUNCTION ALANINE AMINOTRANSF ERASE [ENZYMATIC ACTIVITY/VO LUME] IN SERUM OR PLASMA <6U/L 09/15 Specimen Type: SERUM No comment entered. Ordering Provider: ANITA HARMON Report Released Date/Time: Aug 20, 2024 02:49 PM Reporting Lab: [facility] [place] [facility] [address] [address] Performing Lab: [facility] [address] [address] [place] LIVER FUNCTION BILIRUBIN.T OTAL [MASS/VOLUM E] IN SERUM OR PLASMA 1.2 mg/dL 0.2 - 1.2 09/15 Specimen Type: SERUM No comment entered. Ordering Provider: ANITA HARMON Report Released Date/Time: Aug 20, 2024 02:49 PM Reporting Lab: [facility] [address] [address] Performing Lab: [facility] [address] [address] [place] LIVER FUNCTION BILIRUBIN.D IRECT [MASS/VOLUM E] IN SERUM OR PLASMA 0.5 mg/dL 0 - 0.5 09/15 Specimen Type: SERUM No comment entered. Ordering Provider: ANITA HARMON Report Released Date/Time: Aug 20, 2024 02:49 PM Reporting Lab: [facility] [address] [address] Performing Lab: [facility] [address] [address] [place] TSH THYROTROPIN [UNITS/VOLU ME] IN SERUM OR PLASMA 1.05 u[IU]/ mL 0.35 - 5.00 09/15 Specimen Type: SERUM No comment entered. Ordering Provider: ANITA HARMON Report Released Date/Time: Aug 20, 2024 02:49 PM Reporting Lab: [facility] [address] [address] Performing Lab: [facility] [address] [address] [place] CBC AND DIFF (AUTO) LEUKOCYTES [#/VOLUME] IN BLOOD BY AUTOMATED COUNT 7.37 10*3/u L 4.50 - 11.00 09/15 Specimen Type: BLOOD No comment entered. Ordering Provider: ANITA HARMON Report Released Date/Time: Aug 20, 2024 02:49 PM Reporting Lab: [facility] [address] [address] Performing Lab: [facility] [place] [address] [address] [place] CBC AND DIFF (AUTO) ERYTHROCYTE S [#/VOLUME] IN BLOOD BY AUTOMATED COUNT 4.28 10*6/u L 4.23 - 5.66 09/15 Specimen Type: BLOOD No comment entered. Ordering Provider: ANITA HARMON Report Released Date/Time: Aug 20, 2024 02:49 PM Reporting Lab: [facility] [place] [address] [address] Performing Lab: [facility] [place] [facility] [address] [place] CBC AND DIFF (AUTO) HEMOGLOBIN [MASS/VOLUM E] IN BLOOD 13.4 g/dL 12.8 - 17 09/15 Specimen Type: BLOOD No comment entered. Ordering Provider: ANITA HARMON Report Released Date/Time: Aug 20, 2024 02:49 PM Reporting Lab: [facility] [place] [address] [address] Performing Lab: [facility] [place] [facility] [address] [address] [place] CBC AND DIFF (AUTO) HEMATOCRIT [VOLUME FRACTION] OF BLOOD BY AUTOMATED COUNT 40.0 39.2 - 50.4 09/15 Specimen Type: BLOOD No comment entered. Ordering Provider: ANITA HARMON Report Released Date/Time: Aug 20, 2024 02:49 PM Reporting Lab: [facility] [place] [address] [address] Performing Lab: [facility] [address] [address] [place] CBC AND DIFF (AUTO) MCV [ENTITIC VOLUME] BY AUTOMATED COUNT 93.5 fL 82 - 99 09/15 Specimen Type: BLOOD No comment entered. Ordering Provider: ANITA HARMON Report Released Date/Time: Aug 20, 2024 02:49 PM Reporting Lab: [facility] [place] [facility] [id number] [address] Performing Lab: [facility] [place] [facility] [address] [address] [place] CBC AND DIFF (AUTO) MCHC [MASS/VOLUM E] BY AUTOMATED COUNT 33.5 g/dL 30.8 - 35.1 09/15 Specimen Type: BLOOD No comment entered. Ordering Provider: ANITA HARMON Report Released Date/Time: Aug 20, 2024 02:49 PM Reporting Lab: [facility] [place] [facility] [address] [address] Performing Lab: [facility] [place] [facility] SSDUSE[address] [address] [place] CBC AND DIFF (AUTO) PLATELETS [#/VOLUME] IN BLOOD BY AUTOMATED COUNT 251 10*3/u L 140 - 360 09/15 Specimen Type: BLOOD No comment entered. Ordering Provider: ANITA HARMON Report Released Date/Time: Aug 20, 2024 02:49 PM Reporting Lab: [facility] [place] [facility] [address] [address] Performing Lab: [facility] [place] [facility] [address] [address] [place] CBC AND DIFF (AUTO) ERYTHROCYTE DISTRIBUTIO N WIDTH [RATIO] BY AUTOMATED COUNT 12.8 12.0 - 16.0 09/15 Specimen Type: BLOOD No comment entered. Ordering Provider: ANITA HARMON Report Released Date/Time: Aug 20, 2024 02:49 PM Reporting Lab: [facility] [place] [facility] [address] [address] Performing Lab: [facility] [place] [facility] [address] [address] [place] CBC AND DIFF (AUTO) MONOCYTES [#/VOLUME] IN BLOOD BY AUTOMATED COUNT 0.76 10*3/u L 0.30 - 1.10 09/15 Specimen Type: BLOOD No comment entered. Ordering Provider: ANITA HARMON Report Released Date/Time: Aug 20, 2024 02:49 PM Reporting Lab: [facility] [place] [facility] [address] [address] Performing Lab: [place] [facility] [place] [facility] [address] [address] [place] CBC AND DIFF (AUTO) MCH [ENTITIC MASS] BY AUTOMATED COUNT 31.3 pg 26.2 - 32.6 09/15 Specimen Type: BLOOD No comment entered. Ordering Provider: ANITA HARMON Report Released Date/Time: Aug 20, 2024 02:49 PM Reporting Lab: [facility] [place] [facility] [address] [address] Performing Lab: [facility] [place] [facility] [address] [address] [place] CBC AND DIFF (AUTO) NEUTROPHILS /100 LEUKOCYTES IN BLOOD BY AUTOMATED COUNT 65.8 43.7 - 75.8 09/15 Specimen Type: BLOOD No comment entered. Ordering Provider: ANITA HARMON Report Released Date/Time: Aug 20, 2024 02:49 PM Reporting Lab: [facility] [place] [facility] [address] [address] Performing Lab: [facility] [place] [address] [address] [place] CBC AND DIFF (AUTO) LYMPHOCYTES /100 LEUKOCYTES IN BLOOD BY AUTOMATED COUNT 19.7 14.0 - 42.3 09/15 Specimen Type: BLOOD No comment entered. Ordering Provider: ANITA HARMON Report Released Date/Time: Aug 20, 2024 02:49 PM Reporting Lab: [facility] [place] [address] [address] Performing Lab: [facility] [place] [address] [address] [place] CBC AND DIFF (AUTO) MONOCYTES/1 00 LEUKOCYTES IN BLOOD BY AUTOMATED COUNT 10.3 5.1 - 13.7 09/15 Specimen Type: BLOOD No comment entered. Ordering Provider: ANITA HARMON Report Released Date/Time: Aug 20, 2024 02:49 PM Reporting Lab: [place] [facility] [place] [address] [address] Performing Lab: [facility] [address] [address] [place] CBC AND DIFF (AUTO) EOSINOPHILS /100 LEUKOCYTES IN BLOOD BY AUTOMATED COUNT 3.0 0.4 - 6.8 09/15 Specimen Type: BLOOD No comment entered. Ordering Provider: ANITA HARMON Report Released Date/Time: Aug 20, 2024 02:49 PM Reporting Lab: [facility] [address] [address] Performing Lab: [facility] [address] [address] [place] CBC AND DIFF (AUTO) BASOPHILS/1 00 LEUKOCYTES IN BLOOD BY AUTOMATED COUNT 0.9 0.1 - 2.0 09/15 Specimen Type: BLOOD No comment entered. Ordering Provider: ANITA HARMON Report Released Date/Time: Aug 20, 2024 02:49 PM Reporting Lab: [facility] [address] [address] Performing Lab: [facility] [address] [address] [place] CBC AND DIFF (AUTO) NEUTROPHILS [#/VOLUME] IN BLOOD BY AUTOMATED COUNT 4.85 10*3/u L 2.20 - 7.60 09/15 Specimen Type: BLOOD No comment entered. Ordering Provider: ANITA HARMON Report Released Date/Time: Aug 20, 2024 02:49 PM Reporting Lab: [facility] [address] [address] Performing Lab: [facility] [address] [address] [place] CBC AND DIFF (AUTO) LYMPHOCYTES [#/VOLUME] IN BLOOD BY AUTOMATED COUNT 1.45 10*3/u L 1.00 - 3.20 09/15 Specimen Type: BLOOD No comment entered. Ordering Provider: ANITA HARMON Report Released Date/Time: Aug 20, 2024 02:49 PM Reporting Lab: [facility] [address] [address] Performing Lab: [facility] [place] [facility] [address] [place] CBC AND DIFF (AUTO) EOSINOPHILS [#/VOLUME] IN BLOOD BY AUTOMATED COUNT 0.22 10*3/u L 0.03 - 0.44 09/15 Specimen Type: BLOOD No comment entered. Ordering Provider: ANITA HARMON Report Released Date/Time: Aug 20, 2024 02:49 PM Reporting Lab: [facility] [address] [address] Performing Lab: [facility] [address] [address] [place] CBC AND DIFF (AUTO) BASOPHILS [#/VOLUME] IN BLOOD BY AUTOMATED COUNT 0.07 10*3/u L 0.01 - 0.13 09/15 Specimen Type: BLOOD No comment entered. Ordering Provider: ANITA HARMON Report Released Date/Time: Aug 20, 2024 02:49 PM Reporting Lab: [facility] [place] [facility] [address] [address] Performing Lab: [facility] [address] [address] [place] CBC AND DIFF (AUTO) IMMATURE GRANULOCYTE S/100 LEUKOCYTES IN BLOOD BY AUTOMATED COUNT 0.3 0.0 - 0.7 09/15 Specimen Type: BLOOD No comment entered. Ordering Provider: ANITA HARMON Report Released Date/Time: Aug 20, 2024 02:49 PM Reporting Lab: [facility] [place] [facility] [address] [address] Performing Lab: [facility] [place] [facility] [address] [place] CBC AND DIFF (AUTO) IMMATURE GRANULOCYTE S [#/VOLUME] IN BLOOD 0.02 10*3/u L 0.00 - 0.06 09/15 Specimen Type: BLOOD No comment entered. Ordering Provider: ANITA HARMON Report Released Date/Time: Aug 20, 2024 02:49 PM Reporting Lab: [facility] [address] [address] Performing Lab: [facility] [address] [address] [place] CBC AND DIFF (AUTO) NRBC % 0.0 0.0 - 0.0 09/15 Specimen Type: BLOOD No comment entered. Ordering Provider: ANITA HARMON Report Released Date/Time: Aug 20, 2024 02:49 PM Reporting Lab: [facility] [address] [address] Performing Lab: [facility] [address] [address] [place] CBC AND DIFF (AUTO) NRBC, ABS 0.00 10*3/u L 0.00 - 0.00 09/15 Specimen Type: BLOOD No comment entered. Ordering Provider: ANITA HARMON Report Released Date/Time: Aug 20, 2024 02:49 PM Reporting Lab: [facility] [address] [address] Performing Lab: [facility] [address] [address] [place] VITAMIN D (25-OH) 25-HYDROXYV ITAMIN D3 [MASS/VOLUM E] IN SERUM OR PLASMA 22 ng/mL 20 - 50 09/15 Specimen Type: SERUM No comment entered. Ordering Provider: ANITA HARMON Report Released Date/Time: Sep 09, 2024 09:27 AM Reporting Lab: [facility] [address] [address] Performing Lab: [facility] [address] [address] [place] Vital Signs Combined list of inpatient and outpatient Vital Signs from Department of Defense and Veterans Affairs, ranging from 12 months to all on record, depending upon the facility. Vital Sign Value Date Comments Source SYSTOLIC BLOOD PRESSURE 146 12/15/19 25 10:21:02 [place] DIASTOLIC BLOOD PRESSURE 61 025 10:21:02 [place] PULSE OXIMETRY 99 12/15/2024 10:21:02 [place] WEIGHT 179 12/15/2024 10:21:02 [place] BMI 26 kg/m2 12/15[facility] 12/15/[facility] 10:21:02 [place] TEMPERATURE 97.8 12/15/2024 10:21:02 [place] PULSE 58 12/15/2024 10:21:02 [place] SYSTOLIC BLOOD PRESSURE 117 09/24/20 09:57:27 [place] DIASTOLIC BLOOD PRESSURE 51 09:57:27 [place] PULSE OXIMETRY 97 09/24/2024 09:57:27 [place] WEIGHT 181 09/24/2024 09:57:27 [place] BMI 28 kg/m2 09/24/2024 09:57:27 [place] PULSE 63 09/24/2024 09:57:27 [place] SYSTOLIC BLOOD PRESSURE 133 06/18/20 10:52:33 [place] DIASTOLIC BLOOD PRESSURE 55 10:52:33 [place] PULSE OXIMETRY 99 06/18/2024 10:52:33 [place] WEIGHT 179 06/18/2024 10:52:33 [place] BMI 26 kg/m2 06/18/2024 10:52:33 [place] PAIN 0 06/18/2024 10:52:33 [place] PULSE 66 06/18/2024 10:52:33 [place] SYSTOLIC BLOOD PRESSURE 182 04/22/20 10:29:34 [place] DIASTOLIC BLOOD PRESSURE 76 10:29:34 [place] PULSE OXIMETRY 95 04/22/2024 10:29:34 [place] WEIGHT 187 04/22/2024 10:29:34 [place] BMI 29 kg/m2 04/22/2024 10:29:34 [place] TEMPERATURE 98.4 04/22/2024 10:29:34 [place] PULSE 66 04/22/2024 10:29:34 [place] SYSTOLIC BLOOD PRESSURE 152 01/14/20 10:45:00 [facility] [place] [facility] DIASTOLIC BLOOD PRESSURE 79 024 10:45:00 [facility] [place] [facility] PULSE OXIMETRY 97 01/14/2024 10:45:00 [facility] [place] [facility] WEIGHT 189.6 01/14/2024 10:45:00 [facility] [place] [facility] BMI 30 kg/m2 01/14/2024 10:45:00 [facility] [place] [facility] PAIN 0 01/14/2024 10[facility]45:00 [facility] [place] [facility] TEMPERATURE 98 01/14/2024 10:45:00 [facility] [place] [facility] PULSE 80 01/14/2024 10:45:00 [facility] [place] [facility] RESPIRATION 18 01/14/2024 10:45:00 [facility] [place] [facility] Encounters Combined list of: 1) Encounters from Department of Veterans Affairs facilities going backup to the last 18 months, not all [place] inpatient encounters are included; 2) Encounters from the Department of [facility] facilities going backup to 280 months. Location Location Details Encounter Type Encounter Number Reason For Visit Attending Provider ADM Date DC Date Status Disposition Source [place] [facility] [facility] Outpatient Encounter [id number] 07/20 [place] [facility] [facility] [place] [facility] Outpatient Encounter [id number] 07/23 [place] [facility] [place] [facility] [facility] TTE W/DOPPLER COMPLETE [id number] Diagnos is: ICD-10- CM I35.0 Nonrheu matic aortic (valve) stenosi ANABELL Camilo 08/01 [place] [facility] [facility] MOD 30-39 MIN [id number] Diagnos is: ICD-10- CM I10 Essenti al (primar y) hyperte Waqas Berrios 08/01 [facility] [place] [place] [facility] OFFICE O/P EST MOD 30-39 MIN [id number] Diagnos is: ICD-10- CM G20.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, w/o mention of fluctua tions CAROLINA HUTCHINSON IEL Y 08/10 [facility] [place] [facility] [place] [facility] Outpatient Encounter [id number] 08/27 [facility] [place] [facility] [place] OFFICE O/P EST MOD 30-39 MIN [id number] Diagnos is: ICD-10- CM I10 Essenti al (primar y) hyperte nsion MILAN,CAR MEN F 08/28 [place] [facility] Outpatient Encounter [id number] ALBERTA SHETH U 09/03 [place] [facility] [place] [facility] Outpatient Encounter [id number] 09/07 [facility] [place] [place] [facility] ELECTROCAR DIOGRAM COMPLETE [id number] Diagnos is: ICD-10- CM Z13.6 Encount er for screeni ng for cardiov ascular disorde rs RAVI CARRANZA 10/10 [place] OFF/OP CONSLTJ NEW/[place] HI 55 [id number] Diagnos is: ICD-10- CM I35.0 Nonrheu matic aortic (valve) stenosi s ARELICHARLOTTE A 10/10 [place] [facility] [place] [facility] Outpatient Encounter [id number] 10/10 [facility] [place] [facility] [facility] [place] En[facility] [id number] 10/23 [facility] [place] [facility] [place] [facility] Outpatient Encounter [id number] 10/24 [facility] [place] [facility] [place] [facility] Outpatient Encounter [id number] 10/26 [facility] [place] [facility] [place] [facility] Outpatient Encounter [id number] 11/02 [facility] [place] [place] [facility] Outpatient Encounter [id number] 11/17 [facility] [place] [facility] Out[facility] Encounter [id number] 12/11 [facility] [place] [place] [facility] [place] [facility] OFFICE O/P EST MOD 30 MIN [id number] Diagnos is: ICD-10- CM 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, with fluctua tions CAROLINA HUTCHINSON IEL Y 01/13 [facility] [place] [facility] Outpatient Encounter [id number] 02[facility] [place] [facility] Outpatient Encounter [id number] 02/14 [facility] [place] [facility] Outpatient Encounter [id number] 02/19 [place] [facility] [place] Encounter [id number] 02/25 [facility] [place] [facility] Outpatient Encounter [id number] 02/27 [place] [facility] Outpatient Encounter [id number] 04/01 [place] [facility] Outpatient Encounter [id number] 04/04 [place] [facility] [place] Out[facility] Encounter [id number] 04/21 [facility] [place] [facility] Encounter [id number]/21 [facility] [place] [facility] Encounter [id number] 04/21 [facility] [place] [place] [facility] [place] OFFICE O/P EST MOD 30 MIN [id number] Diagnos is: ICD-10- CM I10 Essenti al (primar y) hyperte nsion STELEA,CAR MEN F 04/22 [place] [facility] Out[facility] Encounter [id number] 04/22 [facility] [place] [facility] Encounter [id number] 04/22 [facility] [place] [place] [facility] [place] SELF CARE MNGMENT TRAINING [id number] Diagnos is: ICD-10- CM M54.50 Low back pain, unspeci fied DANNEN,ANDREAS [facility]EL [facility] [facility] [id number]. 62 Diagnos is: ICD-10- CM M54.50 Low back pain, unspeci fied DANNEN,ANDREAS HAEL 05/05 [place] [facility]counter [id number] 05/21 [facility] [place] [facility] [facility] Encounter [id number] 05/22 [facility] [place] [facility] Encounter [id number] 05/23 [facility] [place] [facility] SELF CARE MNGMENT TRAINING [id number] Diagnos is: ICD-10- CM M54.50 Low back pain, unspeci fied ANDREAS DANIELSON 06/02 [place] [facility] [place] [facility] Outpatient Encounter [id number] 06/09 [facility] [place] [facility] ELECTROCAR DIOGRAM REPORT [id number] Diagnos is: ICD-10- CM Z13.6 Encount er for screeni ng for cardiov ascular disorde gary CHARLOTTE SINGLETON Thad 06/18 [place] OFFICE O/P EST MOD 30 MIN [id number] Diagnos is: ICD-10- CM Z95.2 Presenc e of prosthe tic heart valve JOSEPAR UL U 06/18 [place] [facility] [place] [facility] Outpatient Encounter [id number] 08/05 [place] [facility] [place] [place] [facility] [place] [facility] Outpatient Encounter [id number] 08/05 [facility] [place] [place] [facility] [place] [facility] Outpatient Encounter [id number] 08/21 [facility] [place] [place] [facility] [place] [facility] Outpatient Encounter [id number] 09/12 [facility] [place] [facility] OFFICE O/P EST MOD 30 MIN [id number] Diagnos is: ICD-10- CM 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, with fluctua tions RODGER HARMON C 09/24 [facility] IELD [place] ELECTROCAR DIOGRAM COMPLETE [id number] Diagnos is: ICD-10- CM Z13.6 Encount er for screeni ng for cardiov ascular disorde rs RAVI CARRANZA 12/15 [place] TTE W/DOPPLER COMPLETE [id number] Diagnos is: ICD-10- CM Z95.2 Presenc e of prosthe tic heart valve ABBYMYAHAWK RENE 12/15 [place] OFFICE O/P EST MOD 30 MIN [id number] Diagnos is: ICD-10- CM I10 Essenti al (primar y) hyperte nsYVONNE Cardoza 12/[facility] Social History Combined list of available smoking, tobacco, and other social history from Department of Defense and Veterans Affairs facilities. Social History Type Response Date Comment Sour e Tobacco smoking status HIIS [place]-TOBACCO USE FORMER CIGARETTES 09/24/2024 [place] History of tobacco use DC-TOBACCO NEVER USED OTHER TYPE 09/24/2024 [place] History of tobacco use DC-TOBACCO FORMER USER 08/28/2023 [place] History of tobacco use DC-TOBACCO NEVER USED 08/10/2022 [place] History of tobacco use DC-TOBACCO QUIT 1 5 YRS OR MORE 03/24/2021 [place] History of tobacco use DC-TOBACCO NEVER USED 04/28/2019 [place] History of tobacco use QUIT TOBACCO USE > 7 YEARS AGO 02/08/2018 [place] History of tobacco use QUIT TOBACCO USE > 7 YEARS AGO 02/19/2017 QUIT 40 YRS AGO [place] History of tobacco use QUIT TOBACCO USE > 7 YEARS AGO 03/16/2016 [place] History of tobacco use QUIT TOBACCO USE > 7 YEARS AGO 09/15/2014 [place] Plan of Care List of future care activities from [facility] facilities. Additional future care activities may be listed in the Assessment and Plan section. Date/Time Care Activity Care Activity Detail Facili ty 01/07/2025 AMBULATORY - MEDICINE AMBULATORY - MEDICI [place] [facility] [place] [facility] 03/23/2025 AMBULATORY - MEDICINE AMBULATORY - MEDICI NE [place] Advance Directives List of completed, amended, or rescinded Advance Directives on record at Department of Veterans Affairs facilities. An actual copy of the Directive is not included. Date Advance Directive Provider Source 08/10/2022 ADVANCE DIRECTIVE ELVA JARAMILLO [facility]
--- OUTSIDE RECORDS SUMMARY | 2025-01-07 12:26 | XMS_ITS | Encounter Summary ---
Author Name [facility] [place] [facility] [place] Address [address] [place] [address] Care Team Providers Care Public Affairs Manager Name Role Phone WISAM ALEXANDER Primary Care [...] PART B Jul 22, 2012 PART B [id number] [phone] EDMUND BRAXTON PATIENT MEDICARE (WNR) MEDICARE (M) PART B Jul 22, 2012 PART B [id number] EDMUND BRAXTON PATIENT MEDICARE (WNR) MEDICARE (M) PART A Dec 21, 2011 PART A [id number] [phone] EDMUND BRAXTON PATIENT MEDICARE (WNR) MEDICARE (M) PART B Dec 21, 2011 PART B [id number] EDMUND BRAXTON PATIENT MEDICARE (WNR) MEDICARE (M) PART A Dec 21, 2011 PART A [id number] EDMUND BRAXTON PATIENT MEDICARE (WNR) MEDICARE (M) PART B Dec 21, 2011 PART B [id number] [facility] EDMUND BRAXTON PATIENT MEDICARE (WNR) MEDICARE (M) PART A Dec 21, 2011 PART A [id number] EDMUND BRAXTON PATIENT MEDICARE (WNR) MEDICARE (M) PART A Dec 21, 2011 PART A [id number] EDMUND BRAXTON PATIENT Selected Encounter This section includes the information on record at [place] for the Encounter. Date/Time Encounter Type Encounter Description Reason Provider Source Jun 18, 2024 11:00 AM OFFICE O/P EST MOD 30 MIN CARDIOLOGY ICD-10-CM Z95.2 Presence of prosthetic heart valve GARCIA,AFSANEH U E Encounter Template Text not used by [facility] Assessments - Encounter Diagnoses This section includes the primary and secondary diagnoses documented for the Encounter. Date/Time Primary/Secondary Diagnosis Diagnosis Name Provider Source Jun 18, 2024 01:53 PM PRIMARY Presence of prosthetic heart valve GARCIA,AFSANEH U [place] Jun 18, 2024 01:53 PM SECONDARY Athscl heart disease of [place] coronary artery w/o ang pctrs GARCIA,AFSANEH U [place] Jun 18, 2024 01:53 PM SECONDARY Essential (primary) hypertension GARCIA,AFSANEH U [place] Jun 18, 2024 01:53 PM SECONDARY Hyperlipidemia, unspecified GARCIA,AFSANEH U [place] Plan of Treatment: Future Appointments (+ 6 months) and Future Tests (+/- 45 days) The Plan of Treatment section includes future care activities for the patient from all [place] treatmentfacilities. This section includes future appointments and future orders which are active, pending or scheduled. Future Appointments This section includes appointments that were scheduled to occur 6 months from the date of the Encounter, up to a maximum of 20 appointments. The data comes from all [place] treatment facilities. Appointment Date/Time Appointment Type Appointme nt Facility Name Sep 24, 2024 10:00 AM AMBULATORY - MEDICINE [facility] Dec 15, 2024 10:30 AM AMBULATORY - MEDIC[facility] Dec 15, 2024 11:30 AM AMBULATORY - MEDICINE [facility] Vital Signs: All taken on the encounter date This section contains inpatient and outpatient Vital Signs collected on the date of the Encounter. Date/Time Temperature Pulse Blood Pressure Respiratory Rate SP02 Pain Height Weight Body Mass Index Source Jun 18, 2024 10:52 AM 66 133/55 99 0 179 26 [place] Advance Directives: All historical and current Section Date Range: From patient's date of to the date document was created. This section includes ALL of a patient's completed or amended [place] Advance and Rescinded Directives. The entries below indicate that a directive exists for the patient, but an actual copy is not included with this document. The data comes from all [place] facilities. Date Advance Directives Provider Source Aug 10, 2022 ADVANCE DIRECTIVE ELLAELVA LOYA [facility] Radiology Reports: +/- 30 days of the [...] the Encounter. The data comes from all [place] treatment facilities. Date/Time Radiology Report Provider Source Jun 03, 2024 11:55 AM KNEE 3 VIEWS (RIGH T): CHUY BRAXTON [id number] -[id number] M Exm Date: JUN 03, 2024@11:55 Req Phys: BRANDON YATES Pat Loc: CWM/SO/PACT EIGHT WH (Req'g Lo Img Loc: [facility] Service: [place] [address] (Case [id number] COMPLETE) KNEE 3 VIEWS (RIGHT) (RAD Detailed) CPT:19931 Reason for Study: s/p fall 2 weeks ago Clinical History: Report Status: Verified Date Reported: JUN 03, 2024 Date Verified: JUN 03, 2024 High Frequency Mill Operator E-Sig:/ES/ROSELINE RM JR Report: Study: AP and crosstable [...] Primary Interpreting Staff: ROSELINE RM JR, Radiologist (High Frequency Mill Operator) /ROSELINE MANLEY JR [facility] Encounter Notes: All associated encounter notes This section contains the clinical notes associated to the Encounter. Date/Time Encounter Note(s) Provider Source Jun 18, 2024 10:40 AM CARDIOLOGY ATTENDI OUTPATIENT NOTE: LOCAL TITLE: CARDIOLOGY ATTENDING OUTPATIENT FOLLOW-UP NOTE STANDARD TITLE: CARDIOLOGY ATTENDING OUTPATIENT NOTE DATE OF NOTE: JUN 18, 2024@10:40 ENTRY DATE: JUN 18, 2024@10:40:13 AUTHOR: AFSANEH GARCIA COSIGNER: URGENCY: STATUS: COMPLETED CARDIOLOGY OUTPATIENT FOLLOW UP NOTE CC: Routine follow up, last seen 10/13 HPI: Mr. Braxton is a 78 year old man with hypertension, hyperlipidemia, CAD s/p remote PCI, and aortic stenosis status post recent TAVR. He was last seen in September and local referral was made for TAVR at [facility]. Pre-TAVR cardiac cath did not revealed GRAPHIC COORDINATOR of RCA with left to right collaterals. He underwent TAVR via the femoral approach receiving a 29 mm Evolute bioprosthetic valve. Follow-up echocardiography showed normal global LV systolic function LVEF 55-65%. There was inferobasilar akinesia and aneurysmal changes. The prosthetic aortic valve demonstrated mild to moderate perivalvular leak. There was no central aortic valve insufficiency. The mean systolic gradient was 6 mmHg. There was moderate mitral annular calcification and trace mitral regurgitation the right ventricle was normal in size and function. At his follow up visit post-TAVR with [facility] team he felt significant improvement in his symptoms. He denied chest pain or dyspnea and noted increased energy. Today, he feels great and says it is night and day . He has been walking regularly, working in his yard and will be stacking wood soon. He denies any chest discomfort or dyspnea at rest or with exertion. He denies lower extremity edema, orthopnea, PND. No palpitations, lightheadedness, dizziness, or syncope. PMH/PSH: HTN HL CAD- [place] in 2006 for ACS s/p BMS (vessel unknown) with follow up cath in 2007 Severe s/p TAVR at [facility] with 29 mm Evolute valve in 12/2023 Parkinson's disease Prostate CA d/p XRT Left TKR Right TKR Meds: Carbidopa/Levodopa Coreg 6.25 mg BID Atorvastatin 80 mg once daily ASA 81 mg once daily Lisinopril 40 mg once daily Pantoprazole Vit D NKDA Vitals: 133/55 66 Exam: Gen-NAD, pleasant, walks with a cane but is not using it Neck- no JVD CV- nl S1/S2, RRR with occ ectopic beats, II/ systolic murmur, and I/IV diastolic murmur Lungs- clear Ext- warm, no edema ECG: NSR with PACs, borderline LVH, inferior twi, no significant change Labs: Frolm 02/2024 A1c 5.2% Hb 12.3 Plts 249 Cr 1.02 K 4.8 LDL 51 Studies: TTE 08/13: Normal LV size and systolic function. EF 65%. Severe calcific valvular . Peak velocity 4.1 m/sec, mean gradient 48 mmHg, DI 0.24, LORRAINE 0.8 cm2. Cath 11/2023: RHC RA 6-7 PA 42/8 (mean 24) PCWP 11 LVEDP 15-16 CO 3.86/CI 1.9 Mean gradien t47, LORRAINE 0.66 cm2 Coronary angiography: GRAPHIC COORDINATOR of mid to distal RCA and stented [...] perivalvular leak. No change from 12/26/23 TTE. Assessment: Mr. Braxton is a 78 year old man with hypertension, hyperlipidemia, CAD s/p remote PCI, and aortic stenosis status post recent TAVR. He is doing great with resolution of all cardiac symptoms. Plan: -Continue current regimen. -BP and Lipids well controlled on current therapy. -Continue ASA for valve and CAD. -He will need antibiotic prophylaxis. -He will follow up with [facility] in a few months. RTC here in 6 months with TTE the same day /ruchi/ Afsaneh Hooks. MD Johnson Attending, Cardiology Signed: 06/18/2024 13:53 AFSANEH [facility]
--- OUTSIDE RECORDS SUMMARY | 2025-01-07 12:26 | XMS_ITS | Encounter Summary ---
Author Name [facility] [place] [facility] [place] [facility] [place] Address [address] [place] [id number] Care Team Providers Care Plastic Design Applier Name Role Phone WISAM ALEXANDER Primary Care [...] PART B Jul 22, 2012 PART B [id number] EDMUND AMARO PATIENT MEDICARE (WNR) MEDICARE (M) PART B Jul 22, 2012 PART B [id number] EDMUND AMARO PATIENT MEDICARE (WNR) MEDICARE (M) PART A Dec 21, 2011 PART A [id number] EDMUND AMARO PATIENT MEDICARE (WNR) MEDICARE (M) PART B Dec 21, 2011 PART B [id number] EDMUND AMARO PATIENT MEDICARE (WNR) MEDICARE (M) PART A Dec 21, 2011 PART A [id number] EDMUND AMARO PATIENT MEDICARE (WNR) MEDICARE (M) PART B Dec 21, 2011 PART B [id number] EDMUND AMARO PATIENT MEDICARE (WNR) MEDICARE (M) PART A Dec 21, 2011 PART A [id number] [phone] EDMUND AMARO PATIENT MEDICARE (WNR) MEDICARE (M) PART A Dec 21, 2011 PART A [id number] EDMUND AMARO PATIENT Selected Encounter This section includes the information on record at [place] for the Encounter. Date/Time Encounter Type Encounter Description Reason Provider Source Dec 15, 2024 10:26 AM ELECTROCARDIOGRAM COMPLETE CARDIOLOGY ICD-10-CM Z13.6 Encounter for screening for cardiovascular disorders RAVI CARRANZA Encounter Template Text not used by [place] Assessments - Encounter Diagnoses This section includes the primary and secondary diagnoses documented for the Encounter. Date/Time Primary/Secondary Diagnosis Diagnosis Name Provider Source Dec 15, 2024 11:05 AM PRIMARY Encounter for screening for cardiovascular disorders OSCAR NAVA Plan of Treatment: Future Appointments (+ 6 months) and Future Tests (+/- 45 days) The Plan of Treatment section includes future care activities for the patient from all [place] treatmentfacilities. This section includes future appointments and future orders which are active, pending or scheduled. Future Appointments This section includes appointments that were scheduled to occur 6 months from the date of the Encounter, up to a maximum of 20 appointments. The data comes from all [place] treatment facilities. Appointment Date/Time Appointment Type Appointme nt Facility Name Jan 07, 2025 07:00 AM [facility] Mar 23, 2025 09:30 AM AM[facility]ATORY - MEDICINE [facility] Vital Signs: All taken on the encounter date This section contains inpatient and outpatient Vital Signs collected on the date of the Encounter. Date/Time Temperature Pulse Blood Pressure Respiratory Rate SP02 Pain Height Weight Body Mass Index Source Dec 15, 2024 10:21 AM 97.8 58 146/61 99 0 179 26 [place] Advance Directives: All historical and current Section Date Range: From patient's date of to the date document was created. This section includes ALL of a patient's completed or amended [place] Advance and Rescinded Directives. The entries below indicate that a directive exists for the patient, but an actual copy is not included with this document. The data comes from all [place] facilities. Date Advance Directives Provider Source Aug 10, 2022 ADVANCE DIRECTIVE ELVA JARAMILLO [facility] Encounter Notes: All associated encounter notes This section contains the clinical notes associated to the Encounter. Date/Time Encounter Note(s) Provider Source Dec 15, 2024 11:05 AM CARDIOLOGY PROCEDU RE NOTE: LOCAL TITLE: EKG OUTPATIENT RESULT STANDARD TITLE: CARDIOLOGY PROCEDURE NOTE DATE OF NOTE: DEC 15, 2024@11:05 ENTRY DATE: DEC 15, 2024@11:05:20 AUTHOR: OSCAR NAVA EXP COSIGNER: URGENCY: STATUS: COMPLETED An EKG was done on: Nov Please see [facility] for the EKG result. /ruchi/ OSCAR NAVA CNA R&D LAB TECHNICIAN Signed: 12/15/2024 11:05 OSCAR NAVA
--- OUTSIDE RECORDS SUMMARY | 2025-01-07 12:26 | XMS_ITS | Encounter Summary ---
Author Name [facility] Organization [facility] [place] Address [address] [place] [address] Care Team Providers Care Waste Baler Name Role Phone WISAM ALEXANDER Primary Care [...] PART B Jul 22, 2012 PART B [id number] EDMUND AMARO PATIENT MEDICARE (WNR) MEDICARE (M) PART B Jul 22, 2012 PART B [id number] [phone] EDMUND AMARO PATIENT MEDICARE (WNR) MEDICARE (M) PART A Dec 21, 2011 PART A [id number] EDMUND AMARO PATIENT MEDICARE (WNR) MEDICARE (M) PART B Dec 21, 2011 PART B [id number] [phone] EDMUND AMARO PATIENT MEDICARE (WNR) MEDICARE (M) PART A Dec 21, 2011 PART A [id number] EDMUND AMARO PATIENT MEDICARE (WNR) MEDICARE (M) PART B Dec 21, 2011 PART B [id number] [facility] EDMUND AMARO PATIENT MEDICARE (WNR) MEDICARE (M) PART A Dec 21, 2011 PART A [id number] [phone] EDMUND AMARO PATIENT MEDICARE (WNR) MEDICARE (M) PART A Dec 21, 2011 PART A [id number] [phone] EDMUND AMARO PATIENT Selected Encounter This section includes the information on record at [place] for the Encounter. Date/Time Encounter Type Encounter Description Reason Provider Source Sep 24, 2024 10:00 AM OFFICE O/P EST MOD 30 MIN PRIMARY CARE/MEDICINE ICD-10-CM G20.A2 Parkinson's disease without dyskinesia, with fluctuations NITIN HARMON Maria Del Carmen Encounter Template Text not used by [place] Assessments - Encounter Diagnoses This section includes the primary and secondary diagnoses documented for the Encounter. Date/Time Primary/Secondary Diagnosis Diagnosis Name Provider Source Sep 28, 2024 03:27 PM PRIMARY Parkinson's disease without dyskinesia, with fluctuations DMITRI HARMON [place] Sep 28, 2024 03:27 PM SECONDARY Athscl heart disease of [place] coronary artery w/o ang pctrs DMITRI HARMON [place] Sep 28, 2024 03:27 PM SECONDARY Encounter for immunization Waqas ROSARIO [place] Sep 28, 2024 03:27 PM SECONDARY Essential (primary) hypertension DMITRI HARMON [place] Sep 28, 2024 03:27 PM SECONDARY Hyperkalemia DMITRI HARMON [place] Sep 28, 2024 03:27 PM SECONDARY Mixed hyperlipidemia DMITRI HARMON [place] Sep 28, 2024 03:27 PM SECONDARY Nonrheumatic aortic (valve) stenosis DMITRI HARMON [place] Plan of Treatment: Future Appointments (+ 6 months) and Future Tests (+/- 45 days) The Plan of Treatment section includes future care activities for the patient from all [place] treatmentfacilities. This section includes future appointments and future orders which are active, pending or scheduled. Future Appointments This section includes appointments that were scheduled to occur 6 months from the date of the Encounter, up to a maximum of 20 appointments. The data comes from all [place] treatment facilities. Appointment Date/Time Appointment Type Appointme nt Facility Name Dec 15, 2024 10:30 AM AMBULATORY - MEDICINE [facility] Dec 15, 2024 11:30 AM AMBULATORY - MEDICINE [facility] Jan 07, 2025 07:00 AM [facility]ULAT[facility] - MEDICINE [facility] Mar 23, 2025 09:30 AM AMBULATORY - MEDICINE [facility] Lab Results: +/- 30 days of the encounter This section includes the Chemistry and Hematology Lab Results on record with [place] for the patient. Radiology Reports and Pathology Reports are provided separately, in subsequent sections. Lab Results This section contains the Chemistry/Hematology Results that were resulted 30 days before or 30 daysafter the date of the Encounter. Date/Time Source Result Type Result - Unit Interpretation Reference Range Comment Sep 24, 2024 09:36 AM [facility] CALCIUM Specimen Type: SERUM No comment entered. Ordering Provider: JACINDA SANTILLAN Report Released Date/Time: Sep 19, 2024 03:57 PM Reporting Lab: [facility] [address] [address] Performing Lab: [address] [address] CALCIUM 9.4 mg/dL 8.5-10.2 Sep 24, 2024 09:36 AM [place] MAGNESIUM Specimen Type: SERUM No comment entered. Ordering Provider: JACINDA SANTILLAN Report Released Date/Time: Sep 19, 2024 03:57 PM Reporting Lab: [facility] [address] [address] Performing Lab: [address] [address] MAGNESIUM 2.1 mg/dL 1.6-2.6 Sep 24, 2024 09:36 AM [facility] BASIC METABOLIC PANEL (non-fasting) Spe cimen Type: SERUM No comment entered. Ordering Provider: JACINDA SANTILLAN Report Released Date/Time: Sep 19, 2024 03:57 PM Reporting Lab: [facility] [address] [address] Performing Lab: [address] [address] UREA NITROGEN 25 mg/dL 7-25 GLUCOSE 88 mg/dL 65-100 SODIUM 138 mmol/L 135-145 POTASSIUM 4.7 mmol/L 3.5-5.0 CHLORIDE 106 mmol/L 100-110 CO2 22 meq/L 20-30 CREATININE, Serum 1.15 mg/dL 0.50-1.40 eGFR(CKD-EPI 2020) 65 mL/min >60 Sep 15, 2024 10:42 AM [facility] LIPID PANEL FASTING Specimen Type: SERUM No comment entered. Ordering Provider: DMITRI HARMON Report Released Date/Time: Aug 20, 2024 02:49 PM Reporting Lab: [facility] [address] [address] Performing Lab: [facility] [address] [address] CHOLESTEROL 121 mg/dL TRIGLYCERIDE 66 mg/dL 0-150 LDL calculated 52 mg/dL 0-129 CHOL/HDL 2.2 HDL CHOLESTEROL 56 mg/dL 40-60 Sep 15, 2024 10:42 AM [facility] BASIC METABOLIC PANEL (fasting) Specime n Type: SERUM No comment entered. Ordering Provider: DMITRI HARMON Report Released Date/Time: Aug 20, 2024 02:49 PM Reporting Lab: [facility] [address] [address] Performing Lab: [facility] [address] [address] UREA NITROGEN 28 mg/dL H 7-25 GLUCOSE 80 mg/dL 65-100 SODIUM 136 mmol/L 135-145 POTASSIUM 5.6 mmol/L H 3.5-5.0 CHLORIDE 104 mmol/L 100-110 CO2 21 meq/L 20-30 CREATININE, Serum 1.13 mg/dL 0.50-1.40 eGFR(CKD-EPI 2020) 67 mL/min >60 Sep 15, 2024 10:42 AM [facility] TSH Specimen Type: SERUM No comment entered. Ordering Provider: DMITRI HARMON Report Released Date/Time: Aug 20, 2024 02:49 PM Reporting Lab: [facility] [address] [address] Performing Lab: [facility] [address] [address] TSH 1.05 u[IU]/mL 0.35-5.00 Sep 15, 2024 10:42 AM [facility] LIVER FUNCTION Specimen Type: SERUM No comment entered. Ordering Provider: DMITRI HARMON Report Released Date/Time: Aug 20, 2024 02:49 PM Reporting Lab: [address] [address] Performing Lab: [address] [address] PROTEIN,TOTAL 7.0 g/dL 6.0-8.3 ALBUMIN 4.0 g/dL 3.5-5.0 ALKALINE PHOSPHATASE 87 U/L 40-150 AST 16 U/L 5-34 ALT <6 U/L BILIRUBIN, TOTAL 1.2 mg/dL 0.2-1.2 BILIRUBIN, DIRECT 0.5 mg/dL 0-0.5 Sep 15, 2024 10:42 AM [facility] HEMOGLOBIN A1C PANEL Specimen Type: BLOOD Comment: Values obtained from A1C measurements can vary. For atypical A1C assays, a reported value of 7.0 could actually be between 6.72 and 7.28 if measured by a reference method. A reported value of 9.0 could actually be between 8.73 and 9.27. Ref: http://www.ngs p.org/CAPdata. asp Ordering Provider: DMITRI HARMON Report Released Date/Time: Aug 20, 2024 02:49 PM Reporting Lab: [address] [address] Performing Lab: [address] [address] HEMOGLOBIN A1C 5.2 4.0-5.6 Sep 15, 2024 10:42 AM [facility] CBC AND DIFF (AUTO) Specimen Type: BLOOD No comment entered. Ordering Provider: DMITRI HARMON Report Released Date/Time: Aug 20, 2024 02:49 PM Reporting Lab: [address] [address] Performing Lab: [address] [address] WBC 7.37 10*3/uL 4.50-11.00 RBC 4.28 10*6/uL 4.23-5.66 HGB 13.4 g/dL 12.8-17 HCT 40.0 39.2-50.4 MCV 93.5 fL 82-99 MCHC 33.5 g/dL 30.8-35.1 PLT 251 10*3/uL 140-360 RDW-CV 12.8 12.0-16.0 MONO, ABS 0.76 10*3/uL 0.30-1.10 MCH 31.3 pg 26.2-32.6 NEUT % 65.8 43.7-75.8 LYMPH % 19.7 14.0-42.3 MONO % 10.3 5.1-13.7 EOS % 3.0 0.4-6.8 BASO % 0.9 0.1-2.0 NEUT, ABS 4.85 10*3/uL 2.20-7.60 LYMPH, ABS 1.45 10*3/uL 1.00-3.20 EOS, ABS 0.22 10*3/uL 0.03-0.44 BASO, ABS 0.07 10*3/uL 0.01-0.13 IMMATURE GRAN % 0.3 0.0-0.7 IMMATURE GRAN, ABS 0.02 10*3/uL 0.00-0.06 NRBC % 0.0 0.0-0.0 NRBC, ABS 0.00 10*3/uL 0.00-0.00 Sep 15, 2024 10:42 AM [facility] VITAMIN D (25-OH) Specimen Type: SERUM No comment entered. Ordering Provider: DMITRI HARMON Report Released Date/Time: Sep 09, 2024 09:27 AM Reporting Lab: [address] [address] Performing Lab: [address] [address] VITAMIN D (25-OH) 22 ng/mL 20-50 Vital Signs: All taken on the encounter date This section contains inpatient and outpatient Vital Signs collected on the date of the Encounter. Date/Time Temperature Pulse Blood Pressure Respiratory Rate SP02 Pain Height Weight Body Mass Index Source Sep 24, 2024 09:57 AM 63 117/51 97 181 28 [facility] IELD Immunizations: All administered on the encounter date This section contains immunizations associated to the Encounter. Immunization Series Date Issued Reaction Comments COVID-19 (MODERNA), MRNA, LN P-S, PF, 50 MCG/0.5 ML (AGES 12+ YEARS) Sep 24, 2024 INFLUENZA, HIGH-DOSE, TRIVALENT, PF Sep 24 Social History: Smoking Status (Most current) and Tobacco Use (All prior to encounter date) This section includes the most current, and the historical, smoking and tobacco- related health factors from the [place] facility where the Encounter took place. Current Smoking Status This section includes the most current smoking, or tobacco-related health factor, from the [place] facility where the Encounter took place. Date/Time Current Smoking Status Comment Facil ity Sep 24, 2024 10:00 AM VA-TOBACCO USE FORMER CIGARETTES [facility] Tobacco Use History This section includes a history of the smoking, or tobacco-related health factors, that were collected on or before the date of the Encounter. The data comes from the [place] facility where the Encounter took place. Date/Time Smoking Status/Tobacco Use Comment F acility Sep 24, 2024 10:00 AM VA-TOBACCO USE FORMER CIGARETTES [facility] Aug 28, 2023 10:30 AM VA-TOBACCO FORMER USER [facility] Aug 28, 2023 10:30 AM VA-TOBACCO QUIT 15 YRS OR MORE [facility] Aug 10, 2022 10:00 AM VA-TOBACCO NEVER USED [facility] Mar 24, 2021 10:00 AM VA-TOBACCO FORMER USER [facility] Mar 24, 2021 10:00 AM VA-TOBACCO QUIT 15 YRS OR MORE [facility] Apr 28, 2019 01:25 PM VA-TOBACCO NEVER USED [facility] Feb 08, 2018 02:23 PM QUIT TOBACCO USE > 7 YEARS AGO [facility] February 19, 2017 10:09 AM QUIT TOBACCO USE > 7 YEARS AGO QUIT 40 YRS AGO [facility] March 16, 2016 09:54 AM QUIT TOBACCO USE > 7 YEARS AGO [facility] Sep 15, 2014 10:01 AM QUIT TOBACCO USE > 7 YEARS AGO [facility] Advance Directives: All historical and current Section Date Range: From patient's date of to the date document was created. This section includes ALL of a patient's completed or amended [place] Advance and Rescinded Directives. The entries below indicate that a directive exists for the patient, but an actual copy is not included with this document. The data comes from all [facility]. Date Advance Directives Provider Source Aug 10, 2022 ADVANCE DIRECTIVE ELVA JARAMILLO [facility] Encounter Notes: All associated encounter notes This section contains the clinical notes associated to the Encounter. Date/Time Encounter Note(s) Provider Source Sep 28, 2024 03:28 PM ADDENDUM: LOCAL TITLE: Addendum STANDARD TITLE: ADDENDUM DATE OF NOTE: SEP 28, 2024@15:28:01 ENTRY DATE: SEP 28, 2024@15:28:02 AUTHOR: DMITRI HARMON EXP COSIGNER: URGENCY: STATUS: COMPLETED Please notify patient his follow up potassium is normal. /ruchi/ ZAHIRA MARTINEZ CERTIFIED NURSE PRACTITIONER Signed: 09/28/2024 15:28 Receipt Acknowledged By: 09/30/2024 15:16 /ruchi/ FELIPE GENTILE LPN LPN --- Original Document --- 09/24/24 NURSE PRACTITIONER OUTPATIENT NOTE: PRIMARY CARE VISIT CHUY AMARO, is a 79 y/o WHITE MALE who presents today at the [place] [facility]. TYPE OF VISIT: Face to face HPI: CAD, HTN, HLD, aortic stenosis - hx cardiac stent, valve replacement. Stable on Rx; on ASA. Less SOB since he had valve replacement. Denies chest pain, palpitations, peripheral edema. Followed by cardiology. Parkinson's disease - hx Agent [place] exposure. Has tremors BUE, affects writing, drinking. No falls or urinary incontinence. To see Neuro early 2024. Labs drawn this AM - recently had elevated K+, lisinopril was dc'd. To repeat BMP today. All medications were reconciled during this visit. HEALTHCARE PROVIDERS: cardiology Neuro HISTORY: PERIOD OF SERVICE - [employer] FROM Jan TO Aug COMBAT SERVICE INDICATED: No VITAL SIGNS: Blood Pressure: 117/51 (09/24/2024 09:57) Pain: 0 (01/14/2024 10:45) Patient Height: 67 in [170.2 cm] (11/02/2022 10:52) Patient Weight: 181 lb [82.10 kg] (09/24/2024 09:57) Pulse: 63 (09/24/2024 09:57) Respiration: 18 (01/14/2024 10:45) Temperature: 98.4 F [36.9 C] (04/22/2024 10:29) ASSISTIVE DEVICES: none REVIEW OF SYSTEMS: see HPI PHYSICAL EXAMINATION: General: Well-appearing [place] in no obvious distress. Mental Status: Alert and oriented x4. Neck: Supple. No lymphadenopathy. No carotid bruit. Thyroid unremarkable. Lungs: CTAB. Normal chest excursion. Eupneic respirations. CV: Heart tones S1, S2. RRR. 3/6 DMITRIY. No peripheral edema. GI: Abdomen is soft and nontender. No palpable mass or organomegaly. Neuro: CN II through XII grossly intact. Normal speech. Gross resting tremors BUE. Normal gait. Integument: Skin warm and dry. No rashes or lesions on visible areas. Psych: Normal mood and affect. Normal judgment. Cooperative with exam, follows commands. ALLERGIES: Patient has answered [facility] [employer] - see end of note PREVENTIVE MEDICINE GOALS Advance Directive Screen MH AD Aug 28 Suicide Screen Aug 28 Depression Screening Aug 28 Falls & Incontinence Screen DUE NOW Home Telehealth ([facility]) Referral DUE NOW PTSD Screening Nov 19 Tobacco Use Screening Aug 28 Influenza Immunization DUE NOW Medication Reconciliation DUE NOW Td / Tdap Immunization Sep 15 Alcohol Use Screen (AUDIT-C) Aug 28 COVID-19 Immunization DUE NOW Sexual Orientation Aug 28 Eye Care At-Risk Screen DUE NOW (Optional) Whole Health Documentation DUE NOW ASSESSMENT/PLAN: Active problems - Computerized Problem List is the source for the followin. 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 To see Neuro early 2024. Decline expected with natural progression of disease. 2. Aortic stenosis - s/p TAVR. Continue ASA. 3. Benign essential hypertension (SNOMED CT [id number]) - BP stable despite lisinopril being DC'd. Continue Coreg. 4. Coronary arteriosclerosis - continue ASA, statin. Followed by cardiology. Continue management of comorbid conditions. 5. Mixed hyperlipidaemia - continue statin therapy. At high risk for vascular event. 6. hyperkalemia - lisinopril recently dc'd d/t elevated K+. Repeat labs today. FOLLOW UP: Return to clinic as noted below and/or sooner PRN UPCOMING APPOINTMENTS: 09/24/2024 10:00 CWM/SO/PACT 7 12/15/2024 11:00 [facility] CARE-NEUROLOGY No barriers noted; patient understands and agrees to current treatment plan. If patient has any questions, concerns or changes in current health status he/she will call or come in to the [facility]. HM: Medication Reconciliation: Outpatient: Has the patient been taking medications as documented in the EMLR? No: Discrepencies were identified. See below. Essential Medication List for Review used to complete this medication reconciliation. INCLUDED IN THIS LIST: Alphabetical list of active outpatient prescriptions dispensed from this [facility] (local) and dispensed from another VA or DoD facility (remote) as well as inpatient orders (local, pending and active), local clinic medications, locally documented non-VA medications, and local prescriptions that have or been discontinued in the past 90 days. - Discrepancies were identified, addressed, and discussed with the patient/caregiver at this encounter. Discrepancies: no longer on lisinopril - All changes in medications, including all non-VA/Herbal/OTC medications were entered into CPRS. - If there were any medications the patient should no longer take, they were discontinued. - The patient/caregiver was instructed to update this list, discard old lists, and take this list to the next appointment, whether with a [place] or non-VA provider. /ruchi/ ZAHIRA MARTINEZ CERTIFIED NURSE PRACTITIONER Signed: 09/28/2024 15:27 DMITRI HARMON [facility] Sep 24, 2024 09:57 AM PREVENTIVE MEDICIN E NURSING NOTE: LOCAL TITLE: CLINICAL REMINDERS/NURSING STANDARD TITLE: PREVENTIVE MEDICINE NURSING NOTE DATE OF NOTE: SEP 24, 2024@09:57 ENTRY DATE: SEP 24, 2024@09:57:57 AUTHOR: GWENDOLYN ROSARIO COSIGNER: URGENCY: STATUS: COMPLETED Advance Directive Screen MH AD: Patient has an Advance Directive on file at this [facility]. No updates are needed at this time. The patient received education about Advance Directives and written notification of his/her rights. Suicide Screen: C-SSRS Screening [place] Suicide Severity Rating Scale (C-SSRS) screener 1. Over the past month, have you wished you were or wished you could go to sleep and not wake up? No 2. Over the past month, have you had any actual thoughts of killing yourself? No 3. Over the past month, have you been thinking about how you might do this? Response not required due to responses to other questions. 4. Over the past month, have you had these thoughts and had some intention of acting on them? Response not required due to responses to other questions. 5. Over the past month, have you started to work out or worked out the details of how to kill yourself? Response not required due to responses to other questions. 6. If yes, at any time in the past month did you intend to carry out this plan? Response not required due to responses to other questions. 7. In your lifetime, have you ever done anything, started to do anything, or prepared to do anything to end your life (for example, collected pills, obtained a gun, gave away valuables, went to the roof but didn't jump)? No 8. If YES, was this within the past 3 months? Response not required due to responses to other questions. Depression Screening: Perform PHQ-2 A PHQ-2 screen was performed. The score was 0 which is a negative screen for depression. Over the past two weeks, how often have you been bothered by the following problems? 1. Little interest or pleasure in doing things Not at all 2. Feeling down, depressed, or hopeless Not at all Falls & Incontinence Screen: Falls Screen: During the past 12 months, did the patient report any falls? 4. No falls within the past year. Incontinence Screen: During the past 12 months, has the patient has any characteristics of incontinence (ability, voiding, leakage, etc.)? No incontinence. PTSD Screening: PC-PTSD-5 A PTSD screening test (PC-PTSD-5) was negative (score=0). IN THE PAST MONTH, have you ever had any experience that was so frightening, horrible or traumatic. For example: A serious accident or fire a physical or sexual assault or abuse An earthquake or flood A war Seeing someone be killed or seriously injured Having a loved one through homicide or suicide 1. Have you ever experienced this kind of event? NO 2. Had nightmares about the event(s) or thought about the event(s) when you did not want to? Response not required due to responses to other questions. 3. Tried hard not to think about the event(s) or went out of your way to avoid situations that reminded you of the event(s)? Response not required due to responses to other questions. 4. Been constantly on guard, watchful, or easily startled? Response not required due to responses to other questions. 5. [place] numb or detached from people, activities, or your surroundings? Response not required due to responses to other questions. 6. [place] guilty or unable to stop blaming yourself or others for the event(s) or any problems the event(s) may have caused? Response not required due to responses to other questions. Tobacco Use Screening: The patient is a former cigarette smoker. Quit smoking GREATER THAN OR EQUAL to 15 years. The patient has never used other types of tobacco. Influenza Immunization: Influenza, High-Dose, Trivalent, Preservative Free (Fluzone-Syringe) Administered: INFLUENZA, HIGH-DOSE, TRIVALENT, PF Date Administered: Sep 24, 2024 09:58 City Jailer: SANOFI PASTEUR Lot: [id number] Exp Date: Apr 20, 2025 [facility]: [phone] Admin Route/Site: INTRAMUSCULAR/LEFT DELTOID Dosage: 0.5mL Vaccine Information Statement(s): INFLUENZA(FLU) VACC(INACTIVATED OR RECOMBINANT)VIS May 27, 2021 ([place]) Order By: Policy Administered By: Gwendolyn Rosario The Influenza Vaccine Information Statement (VIS) was reviewed with the patient/caregiver which lists the benefits and risks of the vaccine and the risks of not receiving the Influenza vaccine. The patient/caregiver denied any prior severe reaction to this vaccine or its components or a severe allergic reaction, such as anaphylaxis, to any vaccine or any injectable therapy. The patient/caregiver gave verbal consent to receive the vaccine. Td / Tdap Immunization: The patient declines to receive the recommended dose of Td/Tdap vaccine. Immunization: TD(ADULT) UNSPECIFIED FORMULATION Refusal Reason: PATIENT DECISION Patient refuses all immunization(s) in the Td group Date Documented: 09/24/24 09:59 Alcohol Use Screen (AUDIT-C): Alcohol Screen: SCREEN FOR ALCOHOL (AUDIT-C) An alcohol screening test (AUDIT-C) was negative (score=4). 1. How often did you have a drink containing alcohol in the past year? Consider a drink to be a 12 ounce can or bottle of regular beer, 8 ounces of malt liquor, a 5 ounce glass of table wine, or a 1.5 ounce shot of liquor (like scotch, gin, or vodka). Monthly or less 2. How many drinks containing alcohol did you have on a typical day when you were drinking in the past year? Zero drinks 3. How often did you have six or more drinks on one occasion in the past year? Weekly COVID-19 Immunization: Moderna Monovalent (Spikevax) Administered: COVID-19 (MODERNA), MRNA, LNP-S, PF, 50 MCG/0.5 ML (AGES 12+ YEARS) Date Administered: Sep 24, 2024 09:59 City Jailer: [employer] Lot: [id number] Exp Date: Apr 08, 2025 [facility]: [phone] Admin Route/Site: INTRAMUSCULAR/LEFT DELTOID Dosage: 0.5mL Vaccine Information Statement(s): COVID-19 MRNA VACCINE (12+ YRS) VACCINE VIS Aug 07, 2024 ([place]) Order By: Policy Administered By: Gwendolyn Rosario Vaccine administered without complications. Sexual Orientation: The patient thinks of their sexual orientation as: Straight or Heterosexual Eye Care At-Risk Screen : Patient identified to be at risk for the following eye condition(s): MACULAR DEGENERATION: Macular Degeneration Risk Factors Information: Reminder Term: VA-AMD RISK FACTORS Encounter Diagnosis: 04/22/2024@10:30 I25.10 (ICD-10-CM) Atherosclerotic Heart Disease of [place] Coronary Artery without Angina Pectoris rank: SECONDARY Prov. Narr. - Coronary arteriosclerosis (SCT [id number]) Action: Referral Ordered: Tele-Eye Screening /es/ GWENDOLYN ROSARIO LPN Licensed Practical Nurse Signed: 09/24/2024 10:00 GWENDOLYN ROSARIO [facility] Sep 24, 2024 09:54 AM PRIMARY CARE NURSE PRACTITIONER OUTPATIENT NOTE: LOCAL TITLE: NURSE PRACTITIONER OUTPATIENT NOTE STANDARD TITLE: PRIMARY CARE NURSE PRACTITIONER OUTPATIENT NOTE DATE OF NOTE: SEP 24, 2024@09:54 ENTRY DATE: SEP 24, 2024@09:54:27 AUTHOR: DMITRI HARMON EXP COSIGNER: URGENCY: STATUS: COMPLETED NURSE PRACTITIONER OUTPATIENT NOTE Has ADDENDA PRIMARY CARE VISIT CHUY AMARO, is a 79 y/o WHITE MALE [place] who [facility] the [facility]. TYPE OF VISIT: Face to face HPI: CAD, HTN, HLD, aortic stenosis - hx cardiac stent, valve replacement. Stable on Rx; on ASA. Less SOB since he had valve replacement. Denies chest pain, palpitations, peripheral edema. Followed by cardiology. Parkinson's disease - hx Agent [place] exposure. Has tremors BUE, affects writing, drinking. No falls or urinary incontinence. To see Neuro early 2024. Labs drawn this AM - recently had elevated K+, lisinopril was dc'd. To repeat BMP today. All medications were reconciled during this visit. HEALTHCARE PROVIDERS: cardiology Neuro HISTORY: PERIOD OF SERVICE - [employer] FROM Jan TO Aug COMBAT SERVICE INDICATED: No VITAL SIGNS: Blood Pressure: 117/51 (09/24/2024 09:57) Pain: 0 (01/14/2024 10:45) Patient Height: 67 in [170.2 cm] (11/02/2022 10:52) Patient Weight: 181 lb [82.10 kg] (09/24/2024 09:57) Pulse: 63 (09/24/2024 09:57) Respiration: 18 (01/14/2024 10:45) Temperature: 98.4 F [36.9 C] (04/22/2024 10:29) ASSISTIVE DEVICES: none REVIEW OF SYSTEMS: see HPI PHYSICAL EXAMINATION: General: Well-appearing [place] in no obvious distress. Mental Status: Alert and oriented x4. Neck: Supple. No lymphadenopathy. No carotid bruit. Thyroid unremarkable. Lungs: CTAB. Normal chest excursion. Eupneic respirations. CV: Heart tones S1, S2. RRR. 3/6 DMITRIY. No peripheral edema. GI: Abdomen is soft and nontender. No palpable mass or organomegaly. Neuro: CN II through XII grossly intact. Normal speech. Gross resting tremors BUE. Normal gait. Integument: Skin warm and dry. No rashes or lesions on visible areas. Psych: Normal mood and affect. Normal judgment. Cooperative with exam, follows commands. ALLERGIES: Patient has answered [facility] - see end of note PREVENTIVE MEDICINE GOALS Advance Directive Screen MH AD Aug 28 Suicide Screen Aug 28 Depression Screening Aug 28 Falls & Incontinence Screen DUE NOW Home Telehealth (CCHT) Referral DUE NOW PTSD Screening Nov 19 Tobacco Use Screening Aug 28 Influenza Immunization DUE NOW Medication Reconciliation DUE NOW Td / Tdap Immunization Sep 15 Alcohol Use Screen (AUDIT-C) Aug 28 COVID-19 Immunization DUE NOW Sexual Orientation Aug 28 Eye Care At-Risk Screen DUE NOW (Optional) Whole Health Documentation DUE NOW ASSESSMENT/PLAN: Active problems - Computerized Problem List is the source for the followin. 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 To see Neuro early 2024. Decline expected with natural progression of disease. 2. Aortic stenosis - s/p TAVR. Continue ASA. 3. Benign essential hypertension (SNOMED CT 1569005) - BP stable despite lisinopril being DC'd. Continue Coreg. 4. Coronary arteriosclerosis - continue ASA, statin. Followed by cardiology. Continue management of comorbid conditions. 5. Mixed hyperlipidaemia - continue statin therapy. At high risk for vascular event. 6. hyperkalemia - lisinopril recently dc'd d/t elevated K+. Repeat labs today. FOLLOW UP: Return to clinic as noted below and/or sooner PRN UPCOMING APPOINTMENTS: 09/24/2024 10:00 CWM/SO/PACT 7 12/15/2024 11:00 [facility] No barriers noted; patient understands and agrees to current treatment plan. If patient has any questions, concerns or changes in current health status he/she will call or come [facility] to the [facility]. HM: Medication Reconciliation: Outpatient: Has the patient been taking medications as documented in the EMLR? No: Discrepencies were identified. See below. Essential Medication List for Review used to complete this medication reconciliation. INCLUDED IN THIS LIST: Alphabetical list of active outpatient prescriptions dispensed from this [facility] (local) and dispensed from another VA or [facility]D facility (remote) as well as inpatient orders (local, pending and active), local clinic medications, locally documented non-VA medications, and local prescriptions that have or been discontinued in the past 90 days. - Discrepancies were identified, addressed, and discussed with the patient/caregiver at this encounter. Discrepancies: no longer on lisinopril - All changes in medications, including all non-VA/Herbal/OTC medications were entered into CPRS. - If there were any medications the patient should no longer take, they were discontinued. - The patient/caregiver was instructed to update this list, discard old lists, and take this list to the next appointment, whether with a VA or non-VA provider. /ZAHIRA Archer CERTIFIED NURSE PRACTITIONER Signed: 09/28/2024 15:27 09/28/2024 ADDENDUM STATUS: COMPLETED Please notify patient his follow up potassium is normal. /ZAHIRA Archer CERTIFIED NURSE PRACTITIONER Signed: 09/28/2024 15:28 Receipt Acknowledged By: * AWAITING SIGNATURE * FELIPE GENTILE KENDRA C [place]
--- OUTSIDE RECORDS SUMMARY | 2025-01-07 12:26 | XMS_ITS | Encounter Summary ---
Author Name [facility] Address [address] [place] [id number] Care Team Providers Care Ginning Operator Name Role Phone WISAM ALEXANDER Primary Care [...] PART B Jul 22, 2012 PART B [id number] EDMUND AMARO PATIENT MEDICARE (WNR) MEDICARE (M) PART B Jul 22, 2012 PART B [id number] EDMUND AMARO PATIENT MEDICARE (WNR) MEDICARE (M) PART A Dec 21, 2011 PART A [id number] EDMUND AMARO PATIENT MEDICARE (WNR) MEDICARE (M) PART B Dec 21, 2011 PART B [id number] [phone] EDMUND AMARO PATIENT MEDICARE (WNR) MEDICARE (M) PART A Dec 21, 2011 PART A [id number] EDMUND AMARO PATIENT MEDICARE (WNR) MEDICARE (M) PART B Dec 21, 2011 PART B [id number] EDMUND AMARO PATIENT MEDICARE (WNR) MEDICARE (M) PART A Dec 21, 2011 PART A [id number] EDMUND AMARO PATIENT MEDICARE (WNR) MEDICARE (M) PART A Dec 21, 2011 PART A [id number] EDMUND AMARO PATIENT Selected Encounter This section includes the information on record at [place] for the Encounter. Date/Time Encounter Type Encounter Description Reason Provider Source Jun 02, 2024 11:30 AM SELF CARE MNGMENT TRAINING PHYSICAL THERAPY ICD-10-CM M54.50 Low back pain, unspecified SHERMAN CHRISTIE Maria [place] Encounter Template Text not used by [facility] Assessments - Encounter Diagnoses This section includes the primary and secondary diagnoses documented for the Encounter. Date/Time Primary/Secondary Diagnosis Diagnosis Name Provider Source Jun 02, 2024 02:44 PM PRIMARY Low back pain, unspecified SHERMAN CHRISTIE Plan of Treatment: Future Appointments (+ 6 months) and Future Tests (+/- 45 days) The Plan of Treatment section includes future care activities for the patient from all [place] treatmentfacilities. This section includes future appointments and future orders which are active, pending or scheduled. Future Appointments This section includes appointments that were scheduled to occur 6 months from the date of the Encounter, up to a maximum of 20 appointments. The data comes from all [place] treatment facilities. Appointment Date/Time Appointment Type Appointme nt Facility Name Jun 18, 2024 11:00 AM AMBULATORY - MEDICINE [facility] Sep 24, 2024 10:00 AM [facility] Active, Pending, and Scheduled Orders This section includes a listing of several types of active, pending, and scheduled orders, including clinic medications orders, diagnostic test orders, procedure orders and consult orders; where the start date of the order is 45 days before the date of the Encounter or 45 days after the date of theEncounter. The data comes from all [place] treatment facilities. Test Date/Time Test Type Test Details Facility Name Apr 22, 2024 11:06 AM Consult Order COMMUNITY CARE-NEUROLOGY Cons Digital Marketer's Alex [place] Social History: Smoking Status (Most current) and Tobacco Use (All prior to encounter date) This section includes the most current, and the historical, smoking and tobacco- related health factors from the [place] facility where the Encounter took place. Current Smoking Status This section includes the most current smoking, or tobacco-related health factor, from the [place] facility where the Encounter took place. Date/Time Current Smoking Status Comment Audie ity Aug 28, 2023 10:30 AM VA-TOBACCO FORMER USER [place] Tobacco Use History This section includes a history of the smoking, or tobacco-related health factors, that were collected on or before the date of the Encounter. The data comes from the [place] facility where the Encounter took place. Date/Time Smoking Status/Tobacco Use Comment F acility Aug 28, 2023 10:30 AM VA-TOBACCO QUIT 15 YRS OR MORE [place] Aug 10, 2022 10:00 AM VA-TOBACCO NEVER USED [place] Mar 24, 2021 10:00 AM VA-TOBACCO FORMER USER [place] Mar 24, 2021 10:00 AM VA-TOBACCO QUIT 15 YRS OR MORE [place] Apr 28, 2019 01:25 PM VA-TOBACCO NEVER USED [place] Feb 08, 2018 02:23 PM QUIT TOBACCO USE > 7 YEARS AGO [place] February 19, 2017 10:09 AM QUIT TOBACCO USE > 7 YEARS AGO QUIT 40 YRS AGO [place] March 16, 2016 09:54 AM QUIT TOBACCO USE > 7 YEARS AGO [place] Sep 15, 2014 10:01 AM QUIT TOBACCO USE > 7 YEARS AGO [place] Advance Directives: All historical and current Section Date Range: From patient's date of to the date document was created. This section includes ALL of a patient's completed or amended [place] Advance and Rescinded Directives. The entries below indicate that a directive exists for the patient, but an actual copy is not included with this document. The data comes from all [facility]. Date Advance Directives Provider Source Aug 10, 2022 ADVANCE DIRECTIVE ELVA JARAMILLO [facility] Radiology Reports: +/- 30 days of the [...] the Encounter. The data comes from all [place] treatment facilities. Date/Time Radiology Report Provider Source Jun 03, 2024 11:55 AM KNEE 3 VIEWS (RIGH T): HCUY AMARO [id number] -[id number] M Exm Date: JUN 03, 2024@11:55 Req Phys: BRANDON YATES Pat Loc: CWM/SO/PACT EIGHT WH (Req'g Lo Img Loc: [facility]/BUILDING 1 Service: [place] [facility] [address] (Case [id number] COMPLETE) KNEE 3 VIEWS (RIGHT) (RAD Detailed) CPT:93739 Reason for Study: s/p fall 2 weeks ago Clinical History: Report Status: Verified Date Reported: JUN 03, 2024 Date Verified: JUN 03, 2024 Log Roller E-Sig:/ES/ROSELINE RM JR Report: Study: AP and [...] Primary Interpreting Staff: ROSELINE RM JR, Radiologist (Log Roller) /EAD ROSELINE RM JR [facility] Encounter Notes: All associated encounter notes This section contains the clinical notes associated to the Encounter. Date/Time Encounter Note(s) Provider Source Jun 02, 2024 08:52 AM PHYSICAL MEDICINE REHAB TREATMENT PLAN NOTE: LOCAL TITLE: PHYSICAL THERAPY PROGRESS NOTE STANDARD TITLE: PHYSICAL MEDICINE REHAB TREATMENT PLAN NOTE DATE OF NOTE: JUN 02, 2024@08:52 ENTRY DATE: JUN 02, 2024@08:52:50 AUTHOR: SHERMAN CHRISTIE COSIGNER: URGENCY: STATUS: COMPLETED Initial Evaluation date: 04/25/24 Progress Note Date: 05/26/24 Treatment #: 2 Treatment time: 30 Diagnosis: Low back pain, unspecified(ICD-10-CM M54.50) Provider: BRANDON YATES PT Treatment Precautions: Patient identified by full name and date of Vitals: HR: 75 BP: 115/70 SUBJECTIVE: Patient notes they had a fall forward about 1-2weeks ago while [place] on their R knee noting pain and swelling and bruising in the R knee after their fall which they report has mostly resolved. Notes their pain was severe at the start of the injury, but notes that the R knee pain is now mainly worse in the morning and improves throughout the day. Notes they did not go to ED and has not followed up with PCP since this fall. Patient denies R knee buckling/giving way, dificulty bearing full weight on the RLE in the morning. Patient endorses continued R sciatica symptoms and notes they feel like some symptoms are beginning on the L side as well in the L hip. Pain Current: 3/10 Pain Best: 3/10 Pain Worst: 10/10 Current exercise routine: gardening [...] rotation(30): L:30 R:30 Hip Extension(20): L: R: Knee flexion AROM L: R: 90 Knee flexion PROM L: R: 95 Knee Extension AROM L: R: 0 Knee Extension PROM L: R: 0 Lumbar/Hip Special Tests: SLR- Sign of the Buttock- BING- Scour- FADDIR ALESSANDROLJ SILVA 90/ HS LEG LENGTH SAVANNAH Strength: Hip flexion [...] [] skin intact pre/post modality Access Code: [email or web address] URL: [email or web address] Date: 05/05/2024 Prepared by: Sherman Christie Exercises [...] 3 sets - 30 hold PATIENT EDUCATION: Mins: 10 Patient education was provided for all aspects of care during this clinical encounter. Discussed the anatomy of the knee joint and the anatomy of a joint replacement and the hardware used and how this can relate to fracture risk. Discussed importance of utilizing assistive device at all times to prevent loss of balance. ASSESSMENT: Patient seen for reassessment of baseline measures. Patient reports recent mechanical fall 1-2weeks ago while away on a cruise landing on the front of the R knee. Patient reports significant brusing and swelling in the R knee and in the front of the R castro and back of the R leg. SOme joint line edema is still noted today on assessment as well as some continued brusing in the R knee and R foot/ankle. Patient is able to effectively weight bear on the RLE and appears to ambulate safely with SPC. Discussed that best course of action would likely be x-ray to rule out periprosthetic fracture or loosening of hardware from RTKA. Message sent to PCP not notify. Advised putting PT on hold until after they get x-ray; patient verbalizes agreement with this plan. GOALS: in 4-6weeks, patient will demonstrate: consistent [...] 25% improvement in lumbar extension ROM PLAN: PT on hold until R knee x-ray results POC to focus on flexion based therex [...] SHERMAN CHRISTIE PT, DPT PHYSICAL THERAPIST Signed: 06/02/2024 14:44 SHERMAN CHRISTIE [place]
== END 2025-01-07 11:13 | disposition home or self-care (01) ==
LOC: HO.HSMS 10:31
PROVIDERS: Visit Provider Psychiatry & Neurology Neurology
DX: G20.A1 Parkinson's disease without dyskinesia, without mention of fluctuations (principal); G25.0 Essential tremor; G25.2 Other specified forms of tremor
CPT/HCPCS: 99204; G2211

== ENCOUNTER → 2025-01-07 10:30 | Outpatient (BNVA) | payer OTHER, SELFPAY | PROVIDERS: Visit Provider Psychiatry & Neurology Neurology | DX: G20.A1 Parkinson's disease without dyskinesia, without mention of fluctuations (principal); G25.0 Essential tremor; G25.2 Other specified forms of tremor | CPT/HCPCS: 99202 ==